=== PATIENT | female | born 1980 | race Caucasian/White ===

== ENCOUNTER 2020-02-20 09:11 | Outpatient (REF) | payer OTHER, SELFPAY ==
[2020-02-21 08:51] LABS: BV Int Neg Control Negative (Negative); BV Int Pos Control Positive (Positive)
[2020-02-21 17:47] LABS: C. trachomatis RNA TMA NOT DETECTED (NOT DETECTED); N. gonorrhoeae RNA TMA NOT DETECTED (NOT DETECTED)
== END 2020-02-20 09:12 | disposition home or self-care (01) ==
LOC: HO.LAB 09:11
PROVIDERS: Visit Provider Advanced Practice Midwife
DX: Z01.419 Encounter for gynecological examination (general) (routine) without abnormal findings (principal); Z20.2 Contact with and (suspected) exposure to infections with a predominantly sexual mode of transmission; N75.0 Cyst of Bartholin's gland; Z78.9 Other specified health status
CPT/HCPCS: 87480; 87491; 87510; 87591; 87660

== ENCOUNTER 2020-03-27 17:21 | Outpatient (REF) | payer OTHER, SELFPAY | END 2020-03-27 17:22 | disposition home or self-care (01) | LOC: HO.LAB 17:21 | PROVIDERS: Visit Provider Internal Medicine | DX: Z20.822 Contact with and (suspected) exposure to COVID-19 (principal) | CPT/HCPCS: 36415; C9803; U0003; U0005 ==

== ENCOUNTER → 2020-04-04 13:05 | Outpatient (BNVA) | payer OTHER, SELFPAY | PROVIDERS: PCP Nurse Practitioner Family; Referring Provider Nurse Practitioner Family; Visit Provider Nurse Practitioner ==

== ENCOUNTER 2020-05-21 15:35 | Outpatient (REF) | payer OTHER, SELFPAY ==
[2020-05-22 11:14] LABS: SARS COV2 PCR INHOUSE NEGATIVE (Negative)
== END 2020-05-21 15:36 | disposition home or self-care (01) ==
LOC: HO.LAB 15:35
PROVIDERS: Visit Provider Internal Medicine
DX: Z20.822 Contact with and (suspected) exposure to COVID-19 (principal)
CPT/HCPCS: C9803; U0003

== ENCOUNTER 2020-05-30 12:05 | Outpatient (REF) | payer OTHER, SELFPAY ==
--- NOTE | ~2020-05-30 | MM_ITS ---
EXAMINATION: MM SCREENING DIGITAL BREAST TOMOSYNTHESIS, BILATERAL CLINICAL INFORMATION: Screening. Asymptomatic. The lifetime risk of breast cancer based on the Tyrer-Cuzick Model is 17%. COMPARISON: Mammography: 11/24/2018 (baseline). TECHNIQUE: Digital breast tomosynthesis is performed in both the craniocaudal and mediolateral oblique views along with computer-aided detection (CAD). Synthesized 2D images are generated from the tomosynthesis. FINDINGS: There are scattered areas of fibroglandular density (ACR BI-RADS breast composition Category b). There are no significant masses, abnormal calcifications, or other abnormalities. Parenchymal pattern is similar to baseline exam. No significant changes. MM/MM tomosynthesis screening BI IMPRESSION: No mammographic evidence of malignancy. ASSESSMENT: BI-RADS 1: Negative RECOMMENDATION: Routine annual mammography screening. This patient's information was entered into a reminder system with a target due date for their next mammogram.
== END 2020-05-30 12:06 | disposition home or self-care (01) ==
LOC: HO.MAMMO 12:05
PROVIDERS: Visit Provider Nurse Practitioner Family
DX: Z12.31 Encounter for screening mammogram for malignant neoplasm of breast (principal)
CPT/HCPCS: 77063; 77067

== ENCOUNTER → 2020-10-17 09:10 | Outpatient (BNVA) | payer OTHER, SELFPAY | PROVIDERS: PCP Nurse Practitioner Family; Visit Provider Nurse Practitioner | DX: K21.9 Gastro-esophageal reflux disease without esophagitis (principal) ==

== ENCOUNTER 2020-11-26 17:51 | Outpatient (REF) | payer OTHER, SELFPAY | END 2020-11-26 17:52 | disposition home or self-care (01) | LOC: HO.LNP 17:51 | PROVIDERS: Visit Provider Nurse Practitioner | DX: K21.9 Gastro-esophageal reflux disease without esophagitis (principal) | CPT/HCPCS: 87338 ==

== ENCOUNTER → 2020-12-13 08:31 | Outpatient (BNVA) | payer OTHER, SELFPAY | PROVIDERS: PCP Nurse Practitioner Family; Visit Provider Nurse Practitioner ==

== ENCOUNTER 2021-09-02 16:44 | Outpatient (REF) | payer OTHER, SELFPAY ==
--- NOTE | ~2021-09-02 | XR_ITS ---
EXAMINATION: XR RIBS, LEFT CLINICAL INFORMATION: Left-sided pain, mastodynia. COMPARISON: Radiographs left shoulder 09/02/2021 TECHNIQUE: Frontal view chest and 3 views left ribs are obtained for a total of 4 views. FINDINGS: There is no visible rib fracture or rib destructive process. There is no pneumothorax, pleural reaction, or effusion. Costophrenic sulci are clear. Heart size normal. No airspace consolidation or groundglass opacity. The hilar and mediastinal contours and remainder of the bony structures are unremarkable. XR/XR ribs LT min 3V w CXR1V IMPRESSION: -No visible left rib fracture or rib destructive process. -Lungs clear. No pneumothorax, airspace opacity, or effusion.
--- NOTE | ~2021-09-02 | XR_ITS ---
EXAMINATION: XR SHOULDER, LEFT CLINICAL INFORMATION: Shoulder lesions left shoulder COMPARISON: Left shoulder radiograph from 03/22/2019 TECHNIQUE: Four views of the left shoulder. FINDINGS: No acute visible fracture or dislocation. Joint spaces and alignment are maintained. Soft tissues are unremarkable. Visualized portions of the left chest are unremarkable. XR/XR shoulder LT min 2V IMPRESSION: No acute visible fracture or dislocation.
== END 2021-09-02 16:45 | disposition home or self-care (01) ==
LOC: HO.XRAY 16:44
PROVIDERS: Absent Provider Family Medicine; PCP Family Medicine; Visit Provider Internal Medicine
DX: M75.82 Other shoulder lesions, left shoulder (principal); N64.4 Mastodynia
CPT/HCPCS: 71101; 73030

== ENCOUNTER 2021-10-14 12:53 | Outpatient (REF) | payer OTHER, SELFPAY ==
--- NOTE | ~2021-10-14 | US_ITS ---
EXAMINATION: US PELVIS CLINICAL INFORMATION: Abnormal uterine and vaginal bleeding. Age 41. COMPARISON: None TECHNIQUE: Ultrasound of the pelvis is performed using both transabdominal and transvaginal transducers along with Doppler. Transvaginal imaging is performed due to inadequate visualization transabdominally. FINDINGS: Uterus: The uterus is anteverted and upper limits of normal size measuring 11.1 x 5.2 x 5.9 cm. Volume 157 mL. The double wall endometrial thickness is within normal measuring under 11 mm. The uterus is smooth in contour. There is subtle coarsening of the myometrial echotexture. Probable intramural fibroid anterior body measuring 1.3 cm. Also probable intramural/submucous fibroid posterior body 1.5 cm. Adnexa: Both ovaries are visualized. There is normal color flow to the adnexa. There is no ovarian torsion. There is no pelvic ascites or fluid collection. Right ovary measures 4.1 x 2.3 x 3.2 cm. There are small peripherally oriented follicles but within normal number. No adnexal mass. Left ovary measures 3.0 x 2.4 x 3.0 cm. There are small peripherally oriented follicles but within normal number. No adnexal mass. US/US pelvic and transvaginal IMPRESSION: Uterus: -Upper limits of normal size. Endometrial thickness is normal, under 11 mm. -Suspect small submucous fibroid posterior body 1.5 cm and suspect intramural fibroid anterior body 1.3 cm. Adnexa: -No adnexal mass or ascites.
== END 2021-10-14 12:54 | disposition home or self-care (01) ==
LOC: HO.HMGCX 12:53
PROVIDERS: Visit Provider Advanced Practice Midwife
DX: N93.9 Abnormal uterine and vaginal bleeding, unspecified (principal)
CPT/HCPCS: 76830; 76856

== ENCOUNTER → 2021-10-29 09:00 | Outpatient (BNVA) | payer OTHER, SELFPAY | PROVIDERS: PCP Family Medicine; Referring Provider Family Medicine; Visit Provider Internal Medicine | DX: R07.2 Precordial pain (principal) | CPT/HCPCS: 93005; 99202 ==

== ENCOUNTER 2021-11-11 08:32 | Emergency (ER) | payer OTHER, SELFPAY ==
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
[2021-11-11 08:42] VITALS: BP 179/95; PULSE 60; RESP 19; TEMP 36.6; O2SAT 98; BMI 27.9
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
== END 2021-11-11 12:37 | disposition home or self-care (01) ==
PROVIDERS: Emergency Provider Emergency Medicine
DX: M54.2 Cervicalgia (principal); M54.50 Low back pain, unspecified; M54.6 Pain in thoracic spine; R51.9 Headache, unspecified; Z79.899 Other long term (current) drug therapy
CPT/HCPCS: 70450; 72070; 72125; 99283; 99284

== ENCOUNTER 2022-04-28 13:02 | Outpatient (REF) | payer OTHER, SELFPAY ==
--- NOTE | ~2022-04-28 | US_ITS ---
EXAMINATION: US PELVIS CLINICAL INFORMATION: Bleeding COMPARISON: 10/14/2021 TECHNIQUE: Ultrasound of the pelvis is performed using both transabdominal and transvaginal transducers along with Doppler. Transvaginal imaging is performed due to inadequate visualization transabdominally. FINDINGS: Uterus: The uterus is anteverted and measures 8 x 5.6 x 6.4 cm. 2 discrete fibroids noted within the anterior myometrium of the body near the fundus measuring 12 and 10 mm. 10 mm lesion appears new since previous. The double wall endometrial thickness is 6.3 mm. Incidental nabothian cysts. Adnexa: Both ovaries are visualized. There is normal color flow to the adnexa. There is no ovarian torsion. There is no pelvic ascites or fluid collection. Right ovary measures 8 mL in volume Left ovary measures 16 mL in volume US/US pelvic and transvaginal IMPRESSION: 2 small fibroids noted. No endometrial thickening. No adnexal lesion.
== END 2022-04-28 13:03 | disposition home or self-care (01) ==
LOC: HO.HMGCX 13:02
PROVIDERS: PCP Nurse Practitioner Family; Visit Provider Family Medicine
DX: N93.9 Abnormal uterine and vaginal bleeding, unspecified (principal)
CPT/HCPCS: 76830; 76856

== ENCOUNTER 2022-10-13 13:52 | Outpatient (REF) | payer OTHER, SELFPAY ==
--- NOTE | ~2022-10-13 | MM_ITS ---
EXAMINATION: MM DIAGNOSTIC DIGITAL BREAST TOMOSYNTHESIS, BILATERAL US BREAST LIMITED, BILATERAL MAMMOGRAPHY: CLINICAL INFORMATION: Patient complaining of palpable foci of concern right breast 12:00 axis, left breast 2:00 axis. Patient also due for bilateral screening. COMPARISON: Mammography: 05/30/2020. 11/24/2018. TECHNIQUE: Digital breast tomosynthesis is performed in both the craniocaudal and mediolateral oblique views along with computer-aided detection (CAD). Synthesized 2D images are generated from the tomosynthesis. In addition to standard views, 3-D spot compression right CC, right ML, and left CC and left ML views were obtained. FINDINGS: The breasts are heterogeneously dense, which may obscure small masses (ACR BI-RADS breast composition Category c). There are no suspicious masses, suspicious grouped calcifications, or areas of architectural distortion. The parenchymal pattern is stable from prior exams. Palpable foci as marked by the technologist in the right and left breasts demonstrate no mammographic correlation. Results were provided to the patient at time of visit by the technologist. ULTRASOUND: CLINICAL INFORMATION: Patient complaining of palpable foci of concern right breast 12:00 axis, left breast 2:00 axis. COMPARISON: None TECHNIQUE: Targeted sonographic evaluation of both breasts was performed using a high frequency linear transducer. Specific attention was paid to areas of palpable concern as indicated by the patient in the right breast 12:00 axis and left breast 2:00 axis. Selected archived documentation. FINDINGS: RIGHT BREAST: There is a mixture of fatty and fibroglandular tissue. No suspicious mass is seen. There is no pathologic acoustic shadowing. There is no axillary adenopathy. There is no sonographic abnormality or correlate to the region of palpable concern 12:00 axis. LEFT BREAST: There is a mixture of fatty and fibroglandular tissue. No suspicious mass is seen. There is no pathologic acoustic shadowing. There is no axillary adenopathy. There is no sonographic abnormality or correlate to the region of palpable concern 2:00 axis. MM/MM tomosynthesis diagnostic BI IMPRESSION: There are no findings suspicious for malignancy in either breast. Palpable foci right and left breast demonstrate no imaging correlation or abnormality. Decision to biopsy a palpable abnormality without imaging correlate must be determined on a clinical basis. OVERALL ASSESSMENT: Mammography: BI-RADS 1 - Negative Ultrasound: BI-RADS 1 - Negative RECOMMENDATION: 1 year F/U This patient's information was entered into a reminder system with a target due date for their next mammogram. .
== END 2022-10-13 13:53 | disposition home or self-care (01) ==
LOC: HO.MAMMO 13:52
PROVIDERS: PCP Family Medicine; Visit Provider Family Medicine
DX: N63.15 Unspecified lump in the right breast, overlapping quadrants (principal); N63.25 Unspecified lump in the left breast, overlapping quadrants
CPT/HCPCS: 76642; 77062; 77066

== ENCOUNTER → 2022-10-13 14:30 | Outpatient (BNV) | payer OTHER, SELFPAY | PROVIDERS: PCP Family Medicine; Visit Provider Radiology Diagnostic Radiology | DX: N63.10 Unspecified lump in the right breast, unspecified quadrant (principal); N63.20 Unspecified lump in the left breast, unspecified quadrant | CPT/HCPCS: 76642; 77062; 77066 ==

== ENCOUNTER → 2023-01-25 09:05 | Outpatient (REF) | payer MEDICAID, SELFPAY ==
--- NOTE | 2023-01-25 09:11 | ECG_ITS ---
Test Reason : HTN Blood Pressure : / mmHG Vent. Rate : 060 BPM Atrial Rate : 060 BPM P-R Int : 170 ms QRS Dur : 090 ms QT Int : 426 ms P-R-T Axes : 032 042 039 degrees QTc Int : 426 ms Normal sinus rhythm with sinus arrhythmia Normal ECG No previous ECGs available Referred By: Elizabeth Guo Electronically Signed By:ALVAREZ JIMENEZ
== END ==
LOC: HO.CARD 09:05
PROVIDERS: PCP Family Medicine; Visit Provider Family Medicine
DX: I10 Essential (primary) hypertension (principal)
CPT/HCPCS: 93005

== ENCOUNTER → 2023-01-25 09:11 | Outpatient (BNV) | payer MEDICAID, SELFPAY | PROVIDERS: PCP Family Medicine; Visit Provider Internal Medicine | DX: I10 Essential (primary) hypertension (principal) | CPT/HCPCS: 93010 ==

== ENCOUNTER 2023-01-26 09:04 | Outpatient (REF) | payer MEDICAID, SELFPAY ==
[2023-01-26 10:56] LABS: MANUAL DIFF FLAG NO
[2023-01-26 11:08] LABS: Basophils Absolute Auto 0.1 X10*3/uL (0.0-0.2); Basophils Percent Auto 0.9 % (0-2); Eosinophils Absolute Auto 0.2 X10*3/uL (0.0-0.4); Eosinophils Percent Auto 2.7 % (0-4); Hematocrit 35.3 % (37.0-47.0); Hemoglobin 11.7 g/dl (12.0-16.0); Imm Gran Abs Auto 0.01 X10*3/uL (0.00-0.03); Imm Gran Pct Auto 0.2 % (0.0-0.4); Lymphocytes Absolute Auto 2.3 X10*3/uL (1.2-4.9); Lymphocytes Percent Auto 41.9 % (20-40); Mean Corpuscular HGB Conc 33.1 g/dl (31.0-35.0); Mean Corpuscular Hemoglobin 28.2 pg (27.0-33.0); Mean Corpuscular Volume 85.1 fL (80.0-98.0); Mean Platelet Volume 10.4 fL (9.4-12.3); Monocytes Absolute Auto 0.5 X10*3/uL (0.1-1.2); Monocytes Percent Auto 9.3 % (2-11); Neutrophils Absolute Auto 2.5 x10*3/uL (2.0-8.3); Platelet Count 316 X10*3/uL (160-400); Red Blood Count 4.15 X10*6/uL (4.20-5.50); Red Cell Distribution Width 13.7 % (11.0-16.0); White Blood Count 5.6 X10*3/uL (4.8-10.8)
[2023-01-26 12:14] LABS: Estimated Average Glucose 111 mg/dL; Hemoglobin A1c % 5.5 % (<6.0)
[2023-01-26 12:55] LABS: Alanine Aminotransferase 20 U/L (0-31); Albumin Level 4.1 g/dL (3.5-5.0); Alkaline Phosphatase 68 U/L (39-117); Anion Gap 11 (12-20); Aspartate Amino Transferase 19 U/L (5-31); Bilirubin Direct 0.1 mg/dL (0.0-0.5); Bilirubin Total 0.4 mg/dL (0.0-1.0); Blood Urea Nitrogen 14 mg/dL (9-16); Calcium 8.8 mg/dL (8.4-10.2); Carbon Dioxide 26 mmol/L (22-29); Chloride 105 mmol/L (96-108); Cholesterol 215 mg/dL (<200); Estimated Glomerular Filt Rate > 60; Free T4 (Free Thyroxine) 1.14 ng/dL (0.71-1.85); Glucose Random 89 mg/dL (60-115); HDL Cholesterol 40 mg/dL (>40); LDL Cholesterol Calculated 146 mg/dL (<100); Sodium 139 mmol/L (135-145); Thyroid Stimulating Hormone 2.78 uIU/mL (0.32-4.0); Total Protein 7.5 g/dL (6.5-8.0); Triglycerides 148 mg/dL (<150); Vitamin D 25-OH Total 48.1 ng/mL (>30)
[2023-01-27 08:25] LABS: HIV AB/AG Nonreactive (Nonreactive); HIV Num 1 0.07 S/CO (0.00-0.99); ~HepC Num1 0.28 S/CO (0.00-0.79); ~Hepatitis C Antibody Nonreactive (Nonreactive)
[2023-01-28 08:39] LABS: RPR Rapid Plasma Reagin NON-REACTIVE (NON-REACTIVE)
== END 2023-01-26 09:05 | disposition home or self-care (01) ==
LOC: HO.HHCL 09:04
PROVIDERS: Visit Provider Family Medicine
DX: Z11.4 Encounter for screening for human immunodeficiency virus [HIV] (principal); I10 Essential (primary) hypertension
CPT/HCPCS: 36415; 80048; 80061; 80076; 82306; 83036; 84439; 84443; 85025; 86592; 86803; 87389

== ENCOUNTER 2023-01-29 09:06 | Outpatient (REF) | payer MEDICAID, SELFPAY ==
[2023-01-29 12:54] LABS: Creatinine Urine 116.23 mg/dL; Microalbum/Creatinine Ratio Ur 6.8 ug/mg cr (<30)
[2023-01-29 15:09] LABS: CT PCR NOT DETECTED (Not Detect.); NG PCR NOT DETECTED (Not Detect.)
== END 2023-01-29 09:07 | disposition home or self-care (01) ==
LOC: HO.HHCL 09:06
PROVIDERS: Visit Provider Family Medicine
DX: I10 Essential (primary) hypertension (principal)
CPT/HCPCS: 0353U; 82043; 82570

== ENCOUNTER 2023-02-05 11:27 | Outpatient (REF) | payer MEDICAID, SELFPAY ==
[2023-02-05 13:59] LABS: Potassium 3.7 mmol/L (3.3-5.1)
== END 2023-02-05 11:28 | disposition home or self-care (01) ==
LOC: HO.HHCL 11:27
PROVIDERS: Visit Provider Family Medicine
DX: E87.6 Hypokalemia (principal)
CPT/HCPCS: 36415; 84132

== ENCOUNTER 2023-05-05 12:18 | Outpatient (AMB) | payer MEDICAID, SELFPAY ==
--- NOTE | 2023-05-05 12:18 | A.OFFVIS_ITS ---
Intake Vital Signs 05/05/23 12:19 Height 5 ft 3 in Weight 141 lb 15.643 oz BMI 25.1 BP 160/70 H Blood Pressure Location Rt brachial Position Sitting Pulse 62 Pulse Source Pulse Oximeter Intake Visit Reasons: Gastroesophageal reflux disease (GERD) Intake Note: Pt presents to the office today for GERD. She states when she takes the omeperazole it helps but when she doesnt take it it gets worse again. Pt states her GERD happens mainly in the morning. Pt denies N/V/D. Still Operator Helper Required: Yes Still Operator Helper Language: Block Feeder Name: Jayjay([id number]) Allergies Hydrocodone-Acetaminophen Allergy (Unknown, Uncoded 05/05/23 12:20) Unknown HPI Gastroesophageal reflux disease (GERD) HPI Details Assessment & Plan (1) GERD (gastroesophageal reflux diseas e): ?Code(s): K21.9 - Gastro-esophageal reflux disease without esophagitis ?Plan: [place] #[id number], Kymberly She says her GERD is still well controlled on her omeprazole 20mg qd. I advise her that the HP is negative, so this is not a problem. I ask if she has anymore concerns; as she had worries about cancer and not finding out until it is too late. She says she is now satisfied with her therapy and response. At this point she is agreeable to a 6 month follow-up and a let me know if she has any other worrying GI symptoms or complaints. TODAY'S VISIT Austrian #[id number] Jayjay She says that her PCP changed her GERD medication, but she did not feel it worked as well as the omeprazole. She thinks it may have been pantoprazole. Then she tried to go off of the o2o as well and try natural things but then she developed severe GERD and N/V, so she again restarted it. She was experiencing a dry throat and a bubbling in her stomach at night that she felt was keeping her up. I suggest we trial different medications to see if we can get good sx resolution w/o s/e. She would also like an upper endoscopy and I will get this since she did have nausea vomiting and significant dyspepsia. She denies any cardiac or respiratory problems. There are no prior problems with anesthesia or sedation. There are no infectious disease problems. I will see her in 2 weeks to evaluate the famotidine [facility] Medical History Well woman exam with routine gynecological exam Hypothyroid Surgical History History of esophagogastroduodenoscopy (EGD) History of abdominoplasty Family History Father HTN (hypertension) Mother HTN (hypertension) Paternal Grandmother Heart attack Social History Alcohol intake: current Alcohol intake frequency: holidays/special occasions only Patient Tobacco Use Status: Never used Tobacco Gender identity: Female Female Reproductive History Menstrual Age of Menarche: 14 Review of Systems Const Denies fatigue, Denies fever(s), Denies night sweats, Denies poor appetite and Denies weight loss ENT Reports Normal hearing present, Denies dental pain, Denies dysphagia, Denies hearing loss, Denies mouth pain, Denies odynophagia, Denies throat swelling, Denies tongue swelling and Reports other (Dentition adequate) Card Reports no additional complaints Resp Reports no additional complaints GI Details: Denies abdominal pain, Denies melena, Denies bloating, Denies hematochezia, Denies constipation, Denies GI cramping, Denies dysphagia, Denies excessive flatus, Denies early satiety, Reports dyspepsia, Reports heartburn, Denies diarrhea, Reports nausea, Denies odynophagia, Reports vomiting and Denies hematemesis Skin/Breast Denies pruritus, Denies lesions, Denies rash and Denies jaundice Neuro Reports Normal hearing present and Denies Abnormal speech present Endo Denies fatigue Aller/Immun Denies throat swelling and Denies tongue swelling Physical Exam Vital Signs: Last Vital Signs Pulse 62 05/05/23 12:19 BP 160/70 H 05/05/23 12:19 BMI result Body Mass Index 25.1 Const General: cooperative, no acute distress, well developed and well groomed Nutritional Appearance: average body habitus and well nourished Orientation/consciousness: oriented to person, oriented to place and oriented to time Limitations: language barrier HEENT Head: Yes normocephalic and Yes atraumatic Eyes General: appearance normal, both eyes and all related structures Pupils: Equal, round and reactive pupils present Neck Neck: Yes normal visual inspection and Yes no lymphadenopathy Thyroid: Thyroid normal Resp Effort & Inspection: normal respiratory effort and able to speak in complete sentences Auscultation: clear to auscultation bilaterally Cardio Rate: regular rate Rhythm: regular rhythm Heart sounds: Normal, physiologic split S2 sound present Peripheral pulses: radial pulses present and posterior tibial pulses present GI Inspection: No distended and No Abdominal panniculus present Palpation (GI): Soft to palpation, nontender, no guarding, not rigid and No hepatosplenomegaly present Percussion: Yes normal to percussion Auscultation: normal bowel sounds Rectal Exam - Female: deferred Skin General skin exam: no rashes or lesions noted, turgor normal, skin not dry, no jaundice, No spider nevi and no striae Rashes: no rashes Nails: normal Neuro General: oriented to person, oriented to place and oriented to time Cranial nerves: Yes Equal, round and reactive pupils present and Yes Normal hearing present Speech: No Abnormal speech present Extrem General: Yes normal to inspection, No clubbing, No cyanosis and No edema Psych Appearance: grossly normal and well kempt Mental Status: mental status grossly normal Speech and movement: Normal speech and movement present Affect: normal affect Attitude: cooperative Thought process: Normal thought process present and not confabulating Thought content: Normal thought content present Insight: Limited insight present (Psych) Judgement: Limited judgement present (Psych) Results Reviewed Results Reviewed: Laboratory Tests 01/26/23 09:05 WBC 5.6 Hgb 11.7 L Hct 35.3 L MCV 85.1 MCH 28.2 Plt Count 316 Estimated GFR > 60 Total Bilirubin 0.4 AST 19 ALT 20 Alkaline Phosphatase 68 TSH 2.78 Assessment & Plan Assessment & Plan (1) GERD (gastroesophageal reflux disease): Code(s): K21.9 - Gastro-esophageal reflux disease without esophagitis (2) Pre-op examination: Code(s): Z01.818 - Encounter for other preprocedural examination Plan Austrian #[id number] Jayjay She says that her PCP changed her GERD medication, but she did not feel it worked as well as the omeprazole. She thinks it may have been pantoprazole. Then she tried to go off of the o2o as well and try natural things but then she developed severe GERD and N/V, so she again restarted it. She was experiencing a dry throat and a bubbling in her stomach at night that she felt was keeping her up. I suggest we trial different medications to see if we can get good sx resolution w/o s/e. She would also like an upper endoscopy and I will get this since she did have na usea vomiting and significant dyspepsia. She denies any cardiac or respiratory problems. There are no prior problems with anesthesia or sedation. There are no infectious disease problems. I will see her in 2 weeks to evaluate the famotidine Orders: Orders EGD with [facility] - GI Use Only Today K21.9 - Gastro-esophageal reflux disease without esophagitis Medications: New famotidine (Pepcid) 40 mg PO BEDTIME 30 tabs 3RF K21.9 - Gastro-esophageal reflux disease without esophagitis On Hold omeprazole Hold Comment: Doctor's Order 20 mg PO DAILY 30 caps 6RF K21.9 - Gastro- esophageal reflux disease without esophagitis Coding Level of Care Code Est Pt Level 4 (19252) Diagnoses GERD (gastroesophageal reflux disease) K21.9 Pre-op examination Z01.818
[2023-05-05 12:19] VITALS: BP 160/70; PULSE 62; BMI 25.1
== END 2023-05-05 12:49 | disposition home or self-care (01) ==
PROVIDERS: PCP Family Medicine; Visit Provider Nurse Practitioner
DX: K21.9 Gastro-esophageal reflux disease without esophagitis (principal); Z01.818 Encounter for other preprocedural examination
CPT/HCPCS: 99214

== ENCOUNTER → 2023-05-05 12:18 | Outpatient (BNVA) | payer MEDICAID, SELFPAY | PROVIDERS: PCP Family Medicine; Visit Provider Nurse Practitioner | DX: K21.9 Gastro-esophageal reflux disease without esophagitis (principal) | CPT/HCPCS: 99212 ==

== ENCOUNTER 2023-05-19 12:37 | Outpatient (AMB) | payer MEDICAID, SELFPAY ==
--- NOTE | 2023-05-19 12:43 | A.OFFVIS_ITS ---
Intake Vital Signs 05/19/23 12:46 Height 5 ft 3 in Weight 141 lb 1.533 oz BMI 25.0 BP 118/66 Blood Pressure Location Lt brachial Position Sitting Pulse 65 Intake Visit Reasons: 2 week follow up Allergies Hydrocodone-Acetaminophen Allergy (Unknown, Uncoded 05/19/23 12:46) Unknown HPI 2 week follow up HPI Details Assessment & Plan (1) GERD (gastroesophageal reflux diseas e): Code(s): K21.9 - Gastro-esophageal reflux disease without esophagitis (2) Pre-op examination: Code(s): Z01.818 - Encounter for other preprocedural examination Plan [place] #[id number] Jayjay She says that her PCP changed her GERD medication, but she did not feel it worked as well as the omeprazole. She thinks it may have been pantoprazole. Then she tried to go off of the o2o as well and try natural things but then she developed severe GERD and N/V, so she again restarted it. She was experiencing a dry throat and a bubbling in her stomach at night that she felt was keeping her up. I suggest we trial different medications to see if we can get good sx resolution w/o s/e. She would also like an upper endoscopy and I will get this since she did have nausea vomiting and significant dyspepsia. She denies any cardiac or respiratory problems. There are no prior problems with anesthesia or sedation. There are no infectious disease problems. I will see her in 2 weeks to evaluate the famotidine Orders: Orders EGD with [facility] - G I Use Only Today K21.9 - Gastro-eso phageal reflux dis ease without esoph agitis Medications: New famotidine (Pepcid ) 40 mg PO BEDTIME 30 tabs 3RF K21.9 - Gastro-eso phageal reflux dis ease without esoph agitis On Hold omeprazole Hold Comment: Doctor' s Order 20 mg PO DAILY 30 caps 6RF K21.9 - Gastro-eso phageal reflux dis ease without esoph agitis EGD Biopsy TODAY'S VISIT [place] #Gamaliel LIve She did receive the famotidine but it did not control her GERD. She was changed from o2o to pantoprazole prior to the last appt by her PCP because she thought she was having trouble with the capsule, but the pantoprazole did not help her. She went back to her omeprazole and now this is helping her better, including with her overnight cough. However, since she has more trouble over-nignt I think we need to move to bid omeprazole dosing. ROV 6 weeks. [facility] Medical History Well woman exam with routine gynecological exam Hypothyroid Surgical History History of esophagogastroduodenoscopy (EGD) History of abdominoplasty Family History Father HTN (hypertension) Mother HTN (hypertension) Paternal Grandmother Heart attack Social History Alcohol intake: current Alcohol intake frequency: holidays/special occasions only Patient Tobacco Use Status: Never used Tobacco Gender identity: Female Female Reproductive History Menstrual Age of Menarche: 14 Review of Systems Const Denies fatigue, Denies fever(s), Denies night sweats, Denies poor appetite and Denies weight loss ENT Reports Normal hearing present, Denies dental pain, Denies dysphagia, Denies hearing loss, Denies mouth pain, Denies odynophagia, Denies throat swelling, Denies tongue swelling and Reports other (Dentition adequate) Card Reports no additional complaints Resp Reports no additional complaints GI Details: Denies abdominal pain, Denies melena, Denies bloating, Denies hematochezia, Denies constipation, Denies GI cramping, Denies dysphagia, Denies excessive flatus, Denies early satiety, Reports dyspepsia, Reports heartburn, Denies diarrhea, Denies nausea, Denies odynophagia, Denies vomiting and Denies hematemesis Skin/Breast Denies pruritus, Denies lesions, Denies rash and Denies jaundice Neuro Reports Normal hearing present and Denies Abnormal speech present Endo Denies fatigue Aller/Immun Denies throat swelling and Denies tongue swelling Physical Exam Vital Signs: Last Vital Signs Pulse 65 05/19/23 12:46 BP 118/66 05/19/23 12:46 BMI result Body Mass Index 25.0 Const General: cooperative, no acute distress, well developed and well groomed Nutritional Appearance: average body habitus and well nourished Orientation/consciousness: oriented to person, oriented to place and oriented to time Limitations: language barrier HEENT Head: Yes normocephalic and Yes atraumatic Eyes General: appearance normal, both eyes and all related structures Pupils: Equal, round and reactive pupils present Neck Neck: Yes normal visual inspection and Yes no lymphadenopathy Thyroid: Thyroid normal Resp Effort & Inspection: normal respiratory effort and able to speak in complete sentences Auscultation: clear to auscultation bilaterally Cardio Rate: regular rate Rhythm: regular rhythm Heart sounds: Normal, physiologic split S2 sound present Peripheral pulses: radial pulses present and posterior tibial pulses present GI Inspection: No distended and No Abdominal panniculus present Palpation (GI): Soft to palpation, nontender, no guarding, not rigid and No hepatosplenomegaly present Percussion: Yes normal to percussion Auscultation: normal bowel sounds Rectal Exam - Female: deferred Skin General skin exam: no rashes or lesions noted, turgor normal, skin not dry, no jaundice, No spider nevi and no striae Rashes: no rashes Nails: normal Neuro General: oriented to person, oriented to place and oriented to time Cranial nerves: Yes Equal, round and reactive pupils present and Yes Normal hearing present Speech: No Abnormal speech present Extrem General: Yes normal to inspection, No clubbing, No cyanosis and No edema Psych Appearance: grossly normal and well kempt Mental Status: mental status grossly normal Speech and movement: Normal speech and movement present Affect: normal affect Attitude: cooperative Thought process: Normal thought process present and not confabulating Thought content: Normal thought content present Insight: Limited insight present (Psych) and Poor insight present (Psych) Judgement: Limited judgement present (Psych) and Poor judgement present (Psych) Assessment & Plan Assessment & Plan (1) GERD (gastroesophageal reflux disease): Code(s): K21.9 - Gastro-esophageal reflux disease without esophagitis Plan [place] #Gamaliel LIve She did receive the famotidine but it did not control her GERD. She was changed from o2o to pantoprazole prior to the last appt by her PCP because she thought she was having trouble with the capsule, but the pantoprazole did not help her. She went back to her omeprazole and now this is helping her better, including with her overnight cough. However, since she has more trouble over-nignt I think we need to move to bid omeprazole dosing. ROV 6 weeks EGD Biopsy Medications: Discontinued famotidine (Pepcid) Discontinued Reason: Doctor's Order 40 mg PO BEDTIME 30 tabs 3RF K21.9 - Gastro-esophageal reflux disease without esophagitis Resumed omeprazole 20 mg PO BID 60 caps 6RF K21.9 - Gastro-esophageal reflux disease without esophagitis omeprazole 20 mg PO DAILY 30 caps 6RF K21.9 - Gastro-esophageal reflux disease without esophagitis Coding Level of Care Code Est Pt Level 3 (26172) Diagnoses GERD (gastroesophageal reflux disease) K21.9
[2023-05-19 12:46] VITALS: BP 118/66; PULSE 65; BMI 25.0
== END 2023-05-19 13:00 | disposition home or self-care (01) ==
PROVIDERS: PCP Family Medicine; Visit Provider Nurse Practitioner
DX: K21.9 Gastro-esophageal reflux disease without esophagitis (principal)
CPT/HCPCS: 99213

== ENCOUNTER → 2023-05-19 12:37 | Outpatient (BNVA) | payer MEDICAID, SELFPAY | PROVIDERS: PCP Family Medicine; Visit Provider Nurse Practitioner | DX: K21.9 Gastro-esophageal reflux disease without esophagitis (principal) | CPT/HCPCS: 99212 ==

== ENCOUNTER 2023-05-31 10:46 | Day surgery (SDC) | payer MEDICAID, SELFPAY ==
[2023-05-27 12:32] VITALS: BMI 25.0
--- NOTE | 2023-05-31 12:03 | P.CONAN_ITS ---
[facility] Active Problems Active Problems: All Active Problems Pre-op examination (Acute) Precordial chest pain (Acute) GERD (gastroesophageal reflux disease) (Acute) Potential exposure to STD (Acute) Relies on tubal ligation as primary control method (Acute) Bartholin cyst (Acute) Past Medical History Medical History Well woman exam with routine gynecological exam Hypothyroid Family History Family History Father HTN (hypertension) Mother HTN (hypertension) Paternal Grandmother Heart attack Surgical History Surgical History History of esophagogastroduodenoscopy (EGD) History of abdominoplasty History of Problems with Anesthesia: No Social History Social History Alcohol intake: current Alcohol intake frequency: holidays/special occasions only Patient Tobacco Use Status: Never used Tobacco Use of substances other than those prescribed or required for medical reasons: No Are you DNR?: No Advance Directives: No Advance Directives Information Provided: Yes Gender identity: Female Meds Allergies Allergy/AdvReac Type Severity Reaction Status Date / Time Hydrocodone-Acetaminophen Allergy Mild Nausea Uncoded 05/31/23 12:01 Home Medications ?Medication ?Instructions ?Recorded ?Confirmed ?Last Taken ?Type levothyroxine 88 mcg tablet 88 mcg PO DAILY 10/29/21 05/31/23 05/31/23 History naproxen 500 mg tablet 500 mg PO BID PRN pain 10/29/21 05/31/23 Unknown History lisinopril 5 mg tablet 5 mg PO QAM 05/19/23 05/31/23 05/31/23 History Exam Height,Weight and Vital Signs: Height 5 ft 3 in Weight 63.957 kg Airway Mallampati Class: II TM Dist: >3cm Neck ROM: Full Loose/Missing/Broken Teeth: No Heart: RRR Lungs: CTA Assessment and Plan Assessment Anesthesia Assessment: Anesthesia Plan Discussed and Chart Reviewed Final Anesthetic Review History of Problems with Anesthesia: No NPO: Yes ASA Class: II Final Preanesthetic Review: Meds/Allgs Chart Reviewed, Consent Obtained/Reviewed and Anes Risks/Benef Reviewed Patient Risk: Low Procedure Risk: Intermediate Anesthetic Plan Anesthetic Plan: MAC: Disposition: Standard PACU
[2023-05-31 12:04] VITALS: BMI 24.0
[2023-05-31 12:04] LABS: UPreg QC Valid YES
[2023-05-31 12:06] LABS: Urine Pregnancy NEGATIVE (NEGATIVE)
[2023-05-31 12:18] VITALS: BP 135/83; PULSE 59; RESP 16; TEMP 36.8; O2SAT 100
[2023-05-31] MEDS: Lactated Ringers 1,000 ML 80 ML IVCONT (12:27)
--- NOTE | 2023-05-31 12:48 | P.HPSUR_ITS ---
Pre-Procedural Eval Section A - 24 Hr Update-Section A only Date of Service: 05/31/23 Section B - Complete if H&P > 30 days Chief Complaint: Gastro-esophageal reflux disease without esophagit Relevant Family History (Specify if Yes): No Relevant Social History: None Present Medications: see Short Stay Collaborative assessment Medical History: Significant History (Hypothyroid) History of Previous Operations: Relevant previous surgery/procedure and date(s) (History of esophagogastroduodenoscopy (EGD) History of abdominoplasty) Allergies: Allergies Allergy/AdvReac Type Severity Reaction Status Date / Time Hydrocodone-Acetaminophen Allergy Mild Nausea Uncoded 05/31/23 12:01 Review of Systems Sugical H&P ROS: Negative: Constitution, Cardiovascular, Respiratory, Neurological, Psychiatric, Hem-Onc, Allergic/Immunologic, Gastrointestinal, Genitourinary, Musculoskeletal, Integumentary, Endocrine and Eyes/Ears/Nose/Throat Exam Surgical H&P Exam: Normal: HEENT, Normal: Heart, Normal: Lungs, Normal: Extremit ies, Normal: Abdomen, Normal: Skin and Normal: Neurological Plan Diagnosis/Plan: Unchanged I have reviewed the history and physical and performed a pertinent physical examination on my patient. No changes have occurred unless specified. GERD controlled with meds, EGD for screening for barretts Time Spent With Patient Time: Total time managing care of this patient today ____ minutes.
--- NOTE | 2023-05-31 12:49 | W.PM.OPN ---
Operative Note Operative Note Date of Service: 05/31/23 Narrative: Procedure Description: EGD Indication: screening for Barretts Anesthesia: MAC FLEXIBLE TRANSORAL UPPER GASTROINTESTINAL ENDOSCOPY UPPER ENDOSCOPY Consent: Indications for the procedure and potential complications of bleeding, perforation, reaction to medications and missed diagnosis were discussed with the patient and informed consent was obtained. Instrument: Olympus GIF H 190 J mid size upper endoscope Monitoring: Vital signs and clinical assessment, continuous EKG monitoring, Pulse oximetry, Carbon Dioxide monitoring and blood pressure monitoring were done throughout the procedure. Procedure: The patient was placed in the left lateral decubitis position and pre-procedure medications were administered and a bite block was placed. The endoscope was inserted into the mouth and advanced under direct vision to the third part of duodenum. A careful inspection was made as the upper endoscope was withdrawn including a retroflexed examination of the proximal stomach; Findings and interventions are described below. Findings: Larynx:normal Esophagus: GE junction at 33 cm, diaphragm hiatus at 35 cm, small island of salmon pink tissue, bx taken also from distal esophagus Stomach: mild erythema . Biopsies were obtained. Grade 2 flap valve on retroflexed examination of the cardia. LES appeared lax. Duodenum: Normal bulb and descending duodenum, Intervention: Biopsies as noted above, Impression/Findings: gastritis lax LES hiatal hernia possible short segment barretts PLAN: GERD precautions cont with medications which work well if Barretts pos then rept EGD in 3-5 yrs
[2023-05-31 13:20] VITALS: BP 117/79; PULSE 81; RESP 18; TEMP 36.1; O2SAT 98
[2023-05-31 13:35] VITALS: BP 117/77; PULSE 57; RESP 16; TEMP 36.1; O2SAT 100
== END 2023-05-31 14:07 | disposition home or self-care (01) ==
PROVIDERS: Anesthesiology; PCP Family Medicine; Visit Provider Internal Medicine Gastroenterology
PROC: 0DJ08ZZ Inspection of Upper Intestinal Tract, Via Natural or Artificial Opening Endoscopic (ICD-10-PCS; CPT 43235; principal; 2023-05-31 14:30)
DX: K21.9 Gastro-esophageal reflux disease without esophagitis (principal); K29.50 Unspecified chronic gastritis without bleeding; K22.4 Dyskinesia of esophagus; K44.9 Diaphragmatic hernia without obstruction or gangrene; E03.9 Hypothyroidism, unspecified; Z79.1 Long term (current) use of non-steroidal anti-inflammatories (NSAID); Z79.899 Other long term (current) drug therapy; Z88.8 Allergy status to other drugs, medicaments and biological substances
CPT/HCPCS: 43239; 81025; 88305; 88313; 88342; J2704

== ENCOUNTER → 2023-05-31 10:46 | Outpatient (BNV) | payer MEDICAID, SELFPAY | PROVIDERS: PCP Family Medicine; Visit Provider Internal Medicine Gastroenterology | DX: K29.70 Gastritis, unspecified, without bleeding (principal); K44.9 Diaphragmatic hernia without obstruction or gangrene; K22.70 Barrett's esophagus without dysplasia; K22.4 Dyskinesia of esophagus | CPT/HCPCS: 43239 ==

== ENCOUNTER 2023-06-30 12:10 | Outpatient (AMB) | payer MEDICAID, SELFPAY ==
[2023-06-30 12:11] VITALS: BP 123/79; PULSE 63; BMI 24.1
--- NOTE | 2023-06-30 12:11 | MHC.OFFVIS ---
Vital Signs 06/30/23 12:11 Height 5 ft 4 in Weight 140 lb 3.424 oz BMI 24.1 BP 123/79 Blood Pressure Location Lt brachial Position Sitting Pulse 63 Intake Visit Reasons: s/p EGD Intake Note: Felipa presents to in office visit today in follow up of EGD. CC: Patient reports that she has been taking the Omeprazole and it helps a little bit but she continues to experience cough. Core Inspector Required: Yes Accompanied by: Self / Same As Patient Allergies Hydrocodone-Acetaminophen Allergy (Mild, Uncoded 05/31/23 12:01) Nausea HPI HPI s/p EGD: Details: Assessment & Plan (1) GERD (gastroesophageal reflux disease): Code(s): K21.9 - Gastro-esophageal reflux disease without esophagitis Plan [place] [facility] She did receive the famotidine but it did not control her GERD. She was changed from o2o to pantoprazole prior to the last appt by her PCP because she thought she was having trouble with the capsule, but the pantoprazole did not help her. She went back to her omeprazole and now this is helping her better, including with her overnight cough. However, since she has more trouble over-nignt I think we need to move to bid omeprazole dosing. ROV 6 weeks Discontinued famotidine (Pepcid) Discontinued Reason: Doctor's Order 40 mg PO BEDTIME 30 tabs 3RF K21.9 - Gastro-esophageal reflux disease without esophagitis Resumed omeprazole 20 mg PO BID 60 caps 6RF K21.9 - Gastro-esophageal reflux disease without esophagitis omeprazole 20 mg PO DAILY 30 caps 6RF K21.9 - Gastro-esophageal reflux disease without esophagitis EGD 05/31/23 Findings: Larynx:normal Esophagus: GE junction at 33 cm, diaphragm hiatus at 35 cm, small island of salmon pink tissue, bx taken also from distal esophagus Stomach: mild erythema . Biopsies were obtained. Grade 2 flap valve on retroflexed examination of the cardia. LES appeared lax. Duodenum: Normal bulb and descending duodenum, Intervention: Biopsies as noted above, Impression/Findings: gastritis lax LES hiatal hernia possible short segment barretts PLAN: GERD precautions cont with medications which work well if Barretts pos then rept EGD in 3-5 yrs Biopsy Received: 05/31/23 Diagnosis A. Stomach, biopsy: Antral-type and oxyntic mucosa with moderate chronic inactive inflammation; no Helicobacter organisms seen. B. GE junction, biopsy: - Cardiac-type mucosa with moderate chronic inactive inflammation; no intestinal metaplasia seen. - Squamous mucosa within normal limits. C. Esophagus, distal, biopsy: Squamous epithelium within normal limits; no inflammation seen. D. Esophagus, proximal, biopsy: Squamous epithelium within normal limits; no inflammation seen TODAY'S VISIT [place] [employer] The EGD seesm to show some visual irriation, but biopsies are all negative so it seems the omeprazole is doing it job. She did get the omeprazole and found the bid dosing helpful for HB, but she still wakes up in the am with a cough. I will get a barium swallow to evaluate if she has a HH c/t her cough, and she is also requesting that my lungs be checked. I think a pulmonology referral to assess for possible asthma would be prudent as well. She also had an episode of throat burning and voice changes that required a laryngoscope. ROV 8 weeks. [facility]LY [facility], [facility] Medical History (Updated 06/30/23 @ 12:26 by CHIDI Almonte) Potential exposure to STD Pre-op examination Well woman exam with routine gynecological exam Hypothyroid Surgical History History of esophagogastroduodenoscopy (EGD) History of abdominoplasty Family History Father HTN (hypertension) Mother HTN (hypertension) Paternal Grandmother Heart attack Social History Alcohol intake: current Alcohol intake frequency: holidays/special occasions only Patient Tobacco Use Status: Never used Tobacco Gender identity: Female Female Reproductive History Menstrual Age of Menarche: 14 Review of Systems Const Denies fatigue, Denies fever(s), Denies night sweats, Denies poor appetite and Denies weight loss ENT Reports Normal hearing present, Denies dental pain, Denies dysphagia, Denies hearing loss, Denies mouth pain, Denies odynophagia, Denies throat swelling, Denies tongue swelling and Reports other (Dentition adequate) Card Reports no additional complaints Resp Reports cough GI Details: Denies abdominal pain, Denies melena, Denies bloating, Denies hematochezia, Denies constipation, Denies GI cramping, Denies dysphagia, Denies excessive flatus, Denies early satiety, Reports heartburn, Denies diarrhea, Denies nausea, Denies odynophagia, Denies vomiting and Denies hematemesis Skin/Breast Denies pruritus, Denies lesions, Denies rash and Denies jaundice Neuro Reports Normal hearing present and Denies Abnormal speech present Endo Denies fatigue Aller/Immun Denies throat swelling and Denies tongue swelling Physical Exam Vital Signs: Last Vital Signs Pulse 63 06/30/23 12:11 BP 123/79 06/30/23 12:11 BMI result Body Mass Index 24.1 Const General: cooperative, no acute distress, well developed and well groomed Nutritional Appearance: average body habitus and well nourished Orientation/consciousness: oriented to person, oriented to place and oriented to time Limitations: language barrier HEENT Head: Yes normocephalic and Yes atraumatic Eyes General: appearance normal, both eyes and all related structures Pupils: Equal, round and reactive pupils present Neck Neck: Yes normal visual inspection and Yes no lymphadenopathy Thyroid: Thyroid normal Resp Effort & Inspection: normal respiratory effort and able to speak in complete sentences Auscultation: clear to auscultation bilaterally Cardio Rate: regular rate Rhythm: regular rhythm Heart sounds: Normal, physiologic split S2 sound present Peripheral pulses: radial pulses present and posterior tibial pulses present GI Inspection: No distended and No Abdominal panniculus present Palpation (GI): Soft to palpation, nontender, no guarding, not rigid and No hepatosplenomegaly present Percussion: Yes normal to percussion Auscultation: normal bowel sounds Rectal Exam - Female: deferred Skin General skin exam: no rashes or lesions noted, turgor normal, skin not dry, no jaundice, No spider nevi and no striae Rashes: no rashes Nails: normal Neuro General: oriented to person, oriented to place and oriented to time Cranial nerves: Yes Equal, round and reactive pupils present and Yes Normal hearing present Speech: No Abnormal speech present Extrem General: Yes normal to inspection, No clubbing, No cyanosis and No edema Psych Appearance: grossly normal and well kempt Mental Status: mental status grossly normal Speech and movement: Normal speech and movement present Affect: normal affect Attitude: cooperative Thought process: Normal thought process present and not confabulating Thought content: Normal thought content present Insight: Fair insight present (Psych) and Limited insight present (Psych) Judgement: Fair judgement present (Psych) and Limited judgement present (Psych) Results Reviewed Results Reviewed: EGD 05/31/23 Findings: Larynx:normal Esophagus: GE junction at 33 cm, diaphragm hiatus at 35 cm, small island of salmon pink tissue, bx taken also from distal esophagus Stomach: mild erythema . Biopsies were obtained. Grade 2 flap valve on retroflexed examination of the cardia. LES appeared lax. Duodenum: Normal bulb and descending duodenum, Intervention: Biopsies as noted above, Impression/Findings: gastritis lax LES hiatal hernia possible short segment barretts PLAN: GERD precautions cont with medications which work well if Barretts pos then rept EGD in 3-5 yrs Biopsy Received: 05/31/23 Diagnosis A. Stomach, biopsy: Antral-type and oxyntic mucosa with moderate chronic inactive inflammation; no Helicobacter organisms seen. B. GE junction, biopsy: - Cardiac-type mucosa with moderate chronic inactive inflammation; no intestinal metaplasia seen. - Squamous mucosa within normal limits. C. Esophagus, distal, biopsy: Squamous epithelium within normal limits; no inflammation seen. D. Esophagus, proximal, biopsy: Squamous epithelium within normal limits; no inflammation seen Assessment & Plan Assessment & Plan (1) GERD (gastroesophageal reflux disease): Code(s): K21.9 - Gastro-esophageal reflux disease without esophagitis Category: Medical (2) Cough: Code(s): R05.9 - Cough, unspecified Category: Medical Plan [place] [employer] The EGD seesm to show some visual irriation, but biopsies are all negative so it seems the omeprazole is doing it job. She did get the omeprazole and found the bid dosing helpful for HB, but she still wakes up in the am with a cough. I will get a barium swallow to evaluate if she has a HH c/t her cough, and she is also requesting that my lungs be checked. I think a pulmonology referral to assess for possible asthma would be prudent as well. She also had an episode of throat burning and voice changes that required a laryngoscope. ROV 8 weeks. Orders: Orders [place] barium swallow Today K21.9 - Gastro-esophageal reflux disease without esophagitis, R05.9 - Cough, unspecified Referrals Pulmonary Medicine Referral K21.9 - Gastro-esophageal reflux disease without esophagitis, R05.9 - Cough, unspecified Coding Level of Care Code Est Pt Level 3 (09109) Diagnoses GERD (gastroesophageal reflux disease) K21.9 Cough R05.9
== END 2023-06-30 12:31 | disposition home or self-care (01) ==
PROVIDERS: PCP Family Medicine; Visit Provider Nurse Practitioner
DX: K21.9 Gastro-esophageal reflux disease without esophagitis (principal); R05.9 Cough, unspecified
CPT/HCPCS: 99213

== ENCOUNTER → 2023-06-30 12:10 | Outpatient (BNVA) | payer MEDICAID, SELFPAY | PROVIDERS: PCP Family Medicine; Visit Provider Nurse Practitioner | DX: K21.9 Gastro-esophageal reflux disease without esophagitis (principal); R05.9 Cough, unspecified | CPT/HCPCS: 99212 ==

== ENCOUNTER 2023-08-24 09:45 | Outpatient (REF) | payer MEDICAID, SELFPAY ==
--- NOTE | ~2023-08-24 | FL_ITS ---
EXAMINATION: XR FLUOROSCOPY UPPER GI WITH AIR CLINICAL INFORMATION: Reflux. Dysphagia. COMPARISON: None TECHNIQUE: Fluoroscopic air contrast upper GI examination was performed utilizing standard techniques with thin and thick barium and effervescent granules. Numerous spot images were obtained. FINDINGS: Lateral cine images of the oropharynx and hypopharynx demonstrate normal swallow mechanism with normal epiglottic inversion and soft palate elevation. No tracheal penetration, glottic or subglottic aspiration identified. No nasopharyngeal reflux present. Hypopharyngeal structures appear normal without evidence of mass or diverticulum. There is ballooning of the hypopharynx with associated mild cricopharyngeal achalasia present. Dual and single contrast images of the esophagus demonstrate normal caliber, contour, and mucosal pattern. No evidence of stricture, mass, or ulcerations identified. Esophageal peristalsis is mildly disorganized. A small type I hiatal hernia is present. Significant gastroesophageal reflux is seen up to the thoracic inlet. Dual contrast and single contrast images of the stomach demonstrated a normal contour. The gastric rugal folds have a thickened appearance. The masses or ulcerations are seen. Contrast freely passed into the gastric antrum and duodenal bulb without delay. Single and air-contrast images of the duodenal bulb demonstrate no abnormality. The duodenal sweep has a normal appearance, course, and mucosal fold appearance. The imaged proximal jejunum has a normal fold pattern and caliber. FLUOROSCOPY TIME: 3 minutes 28 seconds Number of Spot Images: 11 Number of Cine: 16 DOSE AREA PRODUCT: 1863 uGy-m2 (microgray-meter squared) FL/FL barium swallow IMPRESSION: 1. 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 Mildly disorganized esophageal peristalsis 3. Small type I hiatal hernia 4. Severe gastroesophageal reflux 5. Thickened appearance of the gastric rugal folds which suggests chronic gastritis. This procedure was performed by Stewart Young PA-C, and supervised by Dr. Childers
== END 2023-08-24 09:46 | disposition home or self-care (01) ==
LOC: HO.XRAY 09:45
PROVIDERS: PCP Family Medicine; Visit Provider Nurse Practitioner
DX: K21.9 Gastro-esophageal reflux disease without esophagitis (principal); R05.9 Cough, unspecified
CPT/HCPCS: 74220

== ENCOUNTER → 2023-08-24 09:47 | Outpatient (BNV) | payer MEDICAID, SELFPAY | PROVIDERS: PCP Family Medicine; Visit Provider Physician Assistant Surgical | DX: R13.10 Dysphagia, unspecified (principal); K21.9 Gastro-esophageal reflux disease without esophagitis | CPT/HCPCS: 74246 ==

== ENCOUNTER 2023-08-24 13:49 | Outpatient (REF) | payer MEDICAID, SELFPAY ==
--- NOTE | ~2023-08-24 | US_ITS ---
EXAMINATION: US PELVIS CLINICAL INFORMATION: Uterine fibroid. COMPARISON: Pelvic ultrasound April 28, 2022, October 14, 2021 TECHNIQUE: Ultrasound of the pelvis is performed using both transabdominal and transvaginal transducers along with Doppler. Transvaginal imaging is performed due to inadequate visualization transabdominally. FINDINGS: Uterus: The uterus is anteverted and anteflexed and measures 12.1 x 5.3 x 7.6 cm. Total uterine volume 255 mL The double wall endometrial thickness is 7 mm. The uterus is smooth in contour and has normal myometrial echogenicity. Number than cysts at the cervix. Uterine fibroids: 1. Anterior mid body 3.3 x 3.1 x 3.1 cm. Previous measurement 1.2 x 0.8 x 1.4 cm. 2. Anterior submucosal near the fundus. 1.3 x 0.9 x 1.5 cm. This fibroid was not evident previously. 3. Fundal fibroid. 1.2 x 0.9 x 1 cm. Previous measurement 1 x 1 x 1 cm. Adnexa: Both ovaries are visualized. There is normal color flow to the adnexa. There is no ovarian torsion. Small volume of fluid adjacent to the right ovary. Right ovary measures 3.3 x 2 x 2.3 cm. Volume 8 mL. Previous measurement 2.9 x 1.7 x 3.1 cm. Left ovary measures 3.3 x 1.9 x 3 cm. Volume 9.8 mL Previous measurement 4 x 2.4 x 3.2 cm Cul-de-sac: No fluid in the cul-de-sac. US/US pelvic and transvaginal IMPRESSION: Uterine fibroids.
== END 2023-08-24 13:50 | disposition home or self-care (01) ==
LOC: HO.HMGCX 13:49
PROVIDERS: PCP Advanced Practice Midwife; Visit Provider Advanced Practice Midwife
DX: D21.9 Benign neoplasm of connective and other soft tissue, unspecified (principal)
CPT/HCPCS: 76830; 76856

== ENCOUNTER 2023-09-28 10:54 | Outpatient (AMB) | payer MEDICAID, SELFPAY ==
--- NOTE | 2023-09-28 10:55 | MHC.OFFVIS ---
Vital Signs 09/28/23 10:57 Height 5 ft 4 in Weight 141 lb 1.533 oz BMI 24.2 BP 118/61 Blood Pressure Location Lt brachial Position Sitting Pulse 67 Intake Visit Reasons: 12 week follow up Gerd Intake Note: Felipa presents in the office as a 12 week follow up for GERD. CC: She states that she is not having any concerns today - states that her acid reflux is okay when she takes the medication - if not she will have bad GERD. Laser Beam Color Scanner Operator Required: Yes Laser Beam Color Scanner Operator Name: [id number] [place] Allergies Hydrocodone-Acetaminophen Allergy (Mild, Uncoded 09/28/23 10:55) Nausea HPI HPI 12 week follow up Gerd: Details: Assessment & Plan (1) GERD (gastroesophageal reflux disease): Code(s): K21.9 - Gastro-esophageal reflux disease without esophagitis Category: Medical (2) Cough: Code(s): R05.9 - Cough, unspecified Category: Medical Plan [place] [employer] The EGD seems to show some visual irritation, but biopsies are all negative so it seems the omeprazole is doing it job. She did get the omeprazole and found the bid dosing helpful for HB, but she still wakes up in the am with a cough. I will get a barium swallow to evaluate if she has a HH c/t her cough, and she is also requesting that my lungs be checked. I think a pulmonology referral to assess for possible asthma would be prudent as well. She also had an episode of throat burning and voice changes that required a laryngoscope. ROV 8 weeks. Orders: Orders FL barium swallow Today K21.9 - Gastro-esophageal reflux disease without esophagitis, R05.9 - Cough, unspecified Referrals Pulmonary Medicine Referral K21.9 - Gastro-esophageal reflux disease without esophagitis, R05.9 - Cough, unspecified BARIUM SWALLOW 08/31/23 FINDINGS: Lateral cine images of the oropharynx and hypopharynx demonstrate normal swallow mechanism with normal epiglottic inversion and soft palate elevation. No tracheal penetration, glottic or subglottic aspiration identified. No nasopharyngeal reflux present. Hypopharyngeal structures appear normal without evidence of mass or diverticulum. There is ballooning of the hypopharynx with associated mild cricopharyngeal achalasia present. Dual and single contrast images of the esophagus demonstrate normal caliber, contour, and mucosal pattern. No evidence of stricture, mass, or ulcerations identified. Esophageal peristalsis is mildly disorganized. A small type I hiatal hernia is present. Significant gastroesophageal reflux is seen up to the thoracic inlet. Dual contrast and single contrast images of the stomach demonstrated a normal contour. The gastric rugal folds have a thickened appearance. The masses or ulcerations are seen. Contrast freely passed into the gastric antrum and duodenal bulb without delay. Single and air-contrast images of the duodenal bulb demonstrate no abnormality. The duodenal sweep has a normal appearance, course, and mucosal fold appearance. The imaged proximal jejunum has a normal fold pattern and caliber. FLUOROSCOPY TIME: 3 minutes 28 seconds Number of Spot Images: 11 Number of Cine: 16 DOSE AREA PRODUCT: 1863 uGy-m2 (microgray-meter squared) FL/FL barium swallow IMPRESSION: 1. 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 Mildly disorganized esophageal peristalsis 3. Small type I hiatal hernia 4. Severe gastroesophageal reflux 5. Thickened appearance of the gastric rugal folds which suggests chronic gastritis. TODAY'S VISIT Setswana #[id number], then Master Live I explain the barium swallow, and while the HH is very small there is significant reflux to there thoracic outlet, so this could c/t her cough. She says it happens mostly at night and this is worse when she lays down. We discuss putting blocks under the HOB and not eating several hours before bedtime. She feels that the omeprazole 20mg bid is controlling her HB well. She has an upcoming pulm appt to see if there is any asthma or other factor causing this or if it is multifactorial. ROV 3 mos. [facility] Medical History Potential exposure to STD Pre-op examination Well woman exam with routine gynecological exam Hypothyroid Surgical History History of esophagogastroduodenoscopy (EGD) History of abdominoplasty Family History Father HTN (hypertension) Mother HTN (hypertension) Paternal Grandmother Heart attack Social History Alcohol intake: current Alcohol intake frequency: holidays/special occasions only Patient Tobacco Use Status: Never used Tobacco Gender identity: Female Female Reproductive History Menstrual Age of Menarche: 14 Review of Systems Const Denies fatigue, Denies fever(s), Denies night sweats, Denies poor appetite and Denies weight loss ENT Reports Normal hearing present, Reports change in voice, Denies dental pain, Denies dysphagia, Denies hearing loss, Denies mouth pain, Denies odynophagia, Denies throat swelling, Denies tongue swelling and Reports other (Dentition adequate) Card Reports no additional complaints Resp Reports cough GI Details: Denies abdominal pain, Denies melena, Denies bloating, Denies hematochezia, Denies constipation, Denies GI cramping, Denies dysphagia, Denies excessive flatus, Denies early satiety, Reports heartburn, Denies diarrhea, Denies nausea, Denies odynophagia, Denies vomiting and Denies hematemesis Skin/Breast Denies pruritus, Denies lesions, Denies rash and Denies jaundice Neuro Reports Normal hearing present and Denies Abnormal speech present Endo Denies fatigue Aller/Immun Denies throat swelling and Denies tongue swelling Physical Exam Vital Signs: Last Vital Signs Pulse 67 09/28/23 10:57 BP 118/61 09/28/23 10:57 BMI result Body Mass Index 24.2 Const General: cooperative, no acute distress, well developed and well groomed Nutritional Appearance: average body habitus and well nourished Orientation/consciousness: oriented to person, oriented to place and oriented to time Limitations: language barrier HEENT Head: Yes normocephalic and Yes atraumatic Eyes General: appearance normal, both eyes and all related structures Pupils: Equal, round and reactive pupils present Neck Neck: Yes normal visual inspection and Yes no lymphadenopathy Thyroid: Thyroid normal Resp Effort & Inspection: normal respiratory effort and able to speak in complete sentences Auscultation: clear to auscultation bilaterally Cardio Rate: regular rate Rhythm: regular rhythm Heart sounds: Normal, physiologic split S2 sound present Peripheral pulses: radial pulses present and posterior tibial pulses present GI Inspection: No distended and No Abdominal panniculus present Palpation (GI): Soft to palpation, nontender, no guarding, not rigid and No hepatosplenomegaly present Percussion: Yes normal to percussion Auscultation: normal bowel sounds Rectal Exam - Female: deferred Skin General skin exam: no rashes or lesions noted, turgor normal, skin not dry, no jaundice, No spider nevi and no striae Rashes: no rashes Nails: normal Neuro General: oriented to person, oriented to place and oriented to time Cranial nerves: Yes Equal, round and reactive pupils present and Yes Normal hearing present Speech: No Abnormal speech present Extrem General: Yes normal to inspection, No clubbing, No cyanosis and No edema Psych Appearance: grossly normal and well kempt Mental Status: mental status grossly normal Speech and movement: Normal speech and movement present Affect: normal affect Attitude: cooperative Thought process: Normal thought process present and not confabulating Thought content: Normal thought content present Insight: Limited insight present (Psych) Judgement: Limited judgement present (Psych) Results Reviewed Results Reviewed: BARIUM SWALLOW 08/31/23 FINDINGS: Lateral cine images of the oropharynx and hypopharynx demonstrate normal swallow mechanism with normal epiglottic inversion and soft palate elevation. No tracheal penetration, glottic or subglottic aspiration identified. No nasopharyngeal reflux present. Hypopharyngeal structures appear normal without evidence of mass or diverticulum. There is ballooning of the hypopharynx with associated mild cricopharyngeal achalasia present. Dual and single contrast images of the esophagus demonstrate normal caliber, contour, and mucosal pattern. No evidence of stricture, mass, or ulcerations identified. Esophageal peristalsis is mildly disorganized. A small type I hiatal hernia is present. Significant gastroesophageal reflux is seen up to the thoracic inlet. Dual contrast and single contrast images of the stomach demonstrated a normal contour. The gastric rugal folds have a thickened appearance. The masses or ulcerations are seen. Contrast freely passed into the gastric antrum and duodenal bulb without delay. Single and air-contrast images of the duodenal bulb demonstrate no abnormality. The duodenal sweep has a normal appearance, course, and mucosal fold appearance. The imaged proximal jejunum has a normal fold pattern and caliber. FLUOROSCOPY TIME: 3 minutes 28 seconds Number of Spot Images: 11 Number of Cine: 16 DOSE AREA PRODUCT: 1863 uGy-m2 (microgray-meter squared) FL/FL barium swallow IMPRESSION: 1. 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 Mildly disorganized esophageal peristalsis 3. Small type I hiatal hernia 4. Severe gastroesophageal reflux 5. Thickened appearance of the gastric rugal folds which suggests chronic gastritis. Assessment & Plan Assessment & Plan (1) GERD (gastroesophageal reflux disease): Code(s): K21.9 - Gastro-esophageal reflux disease without esophagitis Category: Medical (2) Cough: Code(s): R05.9 - Cough, unspecified Category: Medical Plan Setswana #[id number], then Master Live I explain the barium swallow, and while the HH is very small there is significant reflux to there thoracic outlet, so this could c/t her cough. She says it happens mostly at night and this is worse when she lays down. We discuss putting blocks under the HOB and not eating several hours before bedtime. She feels that the omeprazole 20mg bid is controlling her HB well. She has an upcoming pulm appt to see if there is any asthma or other factor causing this or if it is multifactorial. ROV 3 mos. Coding Level of Care Code Est Pt Level 3 (15035) Diagnoses GERD (gastroesophageal reflux disease) K21.9 Cough R05.9
[2023-09-28 10:57] VITALS: BP 118/61; PULSE 67; BMI 24.2
== END 2023-09-28 11:26 | disposition home or self-care (01) ==
PROVIDERS: PCP Family Medicine; Visit Provider Nurse Practitioner
DX: K21.9 Gastro-esophageal reflux disease without esophagitis (principal); R05.9 Cough, unspecified
CPT/HCPCS: 99213

== ENCOUNTER → 2023-09-28 10:54 | Outpatient (BNVA) | payer MEDICAID, SELFPAY | PROVIDERS: PCP Family Medicine; Visit Provider Nurse Practitioner | DX: K21.9 Gastro-esophageal reflux disease without esophagitis (principal); R05.9 Cough, unspecified | CPT/HCPCS: 99212 ==

== ENCOUNTER 2023-09-30 15:00 | Outpatient (AMB) | payer MEDICAID, SELFPAY ==
[2023-09-30 15:02] VITALS: BP 113/77; PULSE 64; O2SAT 99; BMI 24.4
--- NOTE | 2023-09-30 15:02 | MHC.OFFVIS ---
Vital Signs 09/30/23 15:02 Height 5 ft 4 in Weight 142 lb 3.17 oz BMI 24.4 BP 113/77 Blood Pressure Location Rt brachial Position Sitting Pulse 64 Pulse Source Doppler Pulse Oximetry (%) 99 Oxygen Delivery Method Room Air Intake Visit Reasons: Cough Allergies Hydrocodone-Acetaminophen Allergy (Mild, Uncoded 09/28/23 10:55) Nausea HPI Comments Details: The patient is here for pulmonary evaluation. The patient is a 43-year-old woman presenting with symptoms of cough. The patient states that she has been coughing for several months. The cough tends to be moderate severity. Nonproductive in nature. She has been evaluated by GI because she does have an abnormal barium swallow. The patient was found to have a hiatal hernia in addition to severe reflux disease. She did undergo an endoscopy. She does have chronic gastritis. She has been placed on medications and also has been trying to maintain a reflux diet. Still her cough is persistent. On further questioning she states that she was diagnosed with high blood pressure. Primarily due to stress. She was placed on an MICHEAL-inhibitor. Explained to the patient that this is a potential cause of cough. Therefore will be reasonable to switch her to an ARB. the patient has not use any inhalers. she has not had any recent chest x-rays or pulmonary function studies. Her last chest x-ray was Bactrim 2021 which I personally reviewed with her demonstrating no acute disease. Will go ahead and switch her to an ARB to minimize the risk of cough. in addition to that a couple months will plan to do PFTs and chest x-ray follow-up. In the meantime also talked about the importance of reflux diet. The patient does have significant reflux noted on her barium swallow and she understands that this is a significant cause for chronic cough. We did talk about small meal sizes and sleeping elevated ideally with bed risers or a with a wedge pillow. The patient otherwise is continue to be followed up by GI at this time. [facility] Medical History Potential exposure to STD Pre-op examination Well woman exam with routine gynecological exam Hypothyroid Surgical History History of esophagogastroduodenoscopy (EGD) History of abdominoplasty Family History Father HTN (hypertension) Mother HTN (hypertension) Paternal Grandmother Heart attack Social History Alcohol intake: current Alcohol intake frequency: holidays/special occasions only Patient Tobacco Use Status: Never used Tobacco Gender identity: Female Female Reproductive History Menstrual Age of Menarche: 14 Review of Systems Const Denies fever(s) ENT Denies post nasal drip Card Denies chest pain Resp Denies chest congestion, Reports cough and Denies wheezing GI Reports as per HPI, Reports dyspepsia and Reports heartburn Musc Reports no additional complaints Skin/Breast Denies rash Reji/Lymph Reports no additional complaints Aller/Immun Denies wheezing Physical Exam Vital Signs: Last Vital Signs Pulse 64 09/30/23 15:02 BP 113/77 09/30/23 15:02 Pulse Ox 99 09/30/23 15:02 Oxygen Delivery Method Room Air 09/30/23 15:02 BMI result Body Mass Index 24.4 Const General: comfortable HEENT Head: Yes normocephalic Neck Neck: Yes supple Chest Chest palpation & inspection: normal inspection of the chest Resp Effort & Inspection: normal respiratory effort Auscultation: clear to auscultation bilaterally Cardio Heart sounds: S1 normal heart sound present and S2 normal heart sound present GI Palpation (GI): Soft to palpation Skin General skin exam: no rashes or lesions noted Extrem General: Yes no clubbing, cyanosis or edema Assessment & Plan Assessment & Plan (1) Cough: Code(s): R05.9 - Cough, unspecified Category: Medical Qualifiers: Cough type: chronic Qualified Code(s): R05.3 - Chronic cough (2) GERD (gastroesophageal reflux disease): Code(s): K21.9 - Gastro-esophageal reflux disease without esophagitis Category: Medical Qualifiers: Esophagitis presence: with esophagitis Esophagitis bleeding: without hemorrhage Qualified Code(s): K21.00 - Gastro-esophageal reflux disease with esophagitis, without bleeding (3) Cough due to MICHEAL inhibitor: Code(s): R05.8 - Other specified cough; T46.4X5A - Adverse effect of wxegbjoodfo-mogkuafnep-lwjlpp inhibitors, initial encounter Category: Medical Plan MICHEAL to ARB reflux diet HOB elevated PFTs CXR F/U 2-3 months Orders: Orders PFT pulmonary function test Today R05.3 - Chronic cough XR chest 2V Today R05.3 - Chronic cough Medications: New losartan 25 mg PO DAILY 30 days 30 tabs 6RF Coding Level of Care Code New Pt Level 4 (11930) Diagnoses Chronic cough R05.3 Cough type: chronic Gastroesophageal reflux disease with esophagitis without hemorrhage K21.00 Esophagitis presence: with esophagitis Esophagitis bleeding: without hemorrhage Cough due to MICHEAL inhibitor R05.8; T46.4X5A Time Spent (min) 35
== END 2023-09-30 15:27 | disposition home or self-care (01) ==
PROVIDERS: PCP Family Medicine; Referring Provider Nurse Practitioner; Visit Provider Hospitalist
DX: R05.3 Chronic cough (principal); K21.00 Gastro-esophageal reflux disease with esophagitis, without bleeding; R05.8 Other specified cough; T46.4X5A Adverse effect of angiotensin-converting-enzyme inhibitors, initial encounter
CPT/HCPCS: 99204

== ENCOUNTER → 2023-09-30 15:00 | Outpatient (BNVA) | payer MEDICAID, SELFPAY | PROVIDERS: PCP Family Medicine; Referring Provider Nurse Practitioner; Visit Provider Hospitalist | DX: R05.3 Chronic cough (principal); T46.4X5A Adverse effect of angiotensin-converting-enzyme inhibitors, initial encounter; K21.00 Gastro-esophageal reflux disease with esophagitis, without bleeding; K44.9 Diaphragmatic hernia without obstruction or gangrene | CPT/HCPCS: 99202 ==

== ENCOUNTER 2023-10-18 09:59 | Outpatient (REF) | payer MEDICAID, SELFPAY ==
--- NOTE | ~2023-10-18 | MM_ITS ---
EXAMINATION: MM SCREENING DIGITAL BREAST TOMOSYNTHESIS, BILATERAL CLINICAL INFORMATION: Screening. Asymptomatic. COMPARISON: Mammography: Available prior examinations. TECHNIQUE: Digital breast tomosynthesis is performed in both the craniocaudal and mediolateral oblique views along with computer-aided detection (CAD). Synthesized 2D images are generated from the tomosynthesis. FINDINGS: The breasts are heterogeneously dense, which may obscure small masses (ACR BI-RADS breast composition Category c). There are no significant masses, abnormal calcifications, or other abnormalities. MM/MM tomosynthesis screening BI IMPRESSION: No mammographic evidence of malignancy. ASSESSMENT: BI-RADS BI-RADS 1 - Negative RECOMMENDATION: Routine annual mammography screening. 1 year F/U This examination should not preclude the clinical evaluation of a suspicious palpable abnormality. This patient's information was entered into a reminder system with a target due date for their next mammogram. Electronically signed by: Tanya Alanis DO 11/12/2023 10:12 AM EDT
== END 2023-10-18 10:00 | disposition home or self-care (01) ==
LOC: HO.MAMMO 09:59
PROVIDERS: PCP Family Medicine; Visit Provider Advanced Practice Midwife
DX: Z12.31 Encounter for screening mammogram for malignant neoplasm of breast (principal)
CPT/HCPCS: 77063; 77067

== ENCOUNTER → 2023-10-18 10:00 | Outpatient (BNV) | payer MEDICAID, SELFPAY | PROVIDERS: PCP Family Medicine; Visit Provider Internal Medicine | DX: Z12.31 Encounter for screening mammogram for malignant neoplasm of breast (principal) | CPT/HCPCS: 77063; 77067 ==

== ENCOUNTER 2023-12-09 10:52 | Outpatient (AMB) | payer MEDICAID, SELFPAY ==
[2023-12-09 10:56] VITALS: BP 108/66; BMI 24.5
--- NOTE | 2023-12-09 10:56 | A.OFFVIS_ITS ---
Vital Signs 12/09/23 10:56 Height 5 ft 4 in Weight 143 lb BMI 24.5 BP 108/66 Intake Visit Reasons: Fibroids/ referral Neurological Surgery Teacher Required: Yes Neurological Surgery Teacher Language: Yoruba Information Interpreted: non-clinical & clinical Accompanied by: Self / Same As Patient Allergies Hydrocodone-Acetaminophen Allergy (Mild, Uncoded 12/09/23 10:57) Nausea Is last menstrual period known: Yes HPI Comments Details: Presenting referred from [facility] regarding heavy vaginal bleeding associated with passage of blood clots and pelvic cramping. Ultrasound done in 09/14 showed the following: Uterus: The uterus is anteverted and anteflexed and measures 12.1 x 5.3 x 7.6 cm. Total uterine volume 255 mL The double wall endometrial thickness is 7 mm. The uterus is smooth in contour and has normal myometrial echogenicity. Number than cysts at the cervix. Uterine fibroids: 1. Anterior mid body 3.3 x 3.1 x 3.1 cm. Previous measurement 1.2 x 0.8 x 1.4 cm. 2. Anterior submucosal near the fundus. 1.3 x 0.9 x 1.5 cm. This fibroid was not evident previously. 3. Fundal fibroid. 1.2 x 0.9 x 1 cm. Previous measurement 1 x 1 x 1 cm. Adnexa: Both ovaries are visualized. There is normal color flow to the adnexa. There is no ovarian torsion. Small volume of fluid adjacent to the right ovary. Right ovary measures 3.3 x 2 x 2.3 cm. Volume 8 mL. Previous measurement 2.9 x 1.7 x 3.1 cm. Left ovary measures 3.3 x 1.9 x 3 cm. Volume 9.8 mL Previous measurement 4 x 2.4 x 3.2 cm Cul-de-sac: No fluid in the cul-de-sac. Last mammogram done in 11/15 was BI-RADS 1 [facility] Medical History Potential exposure to STD Pre-op examination Well woman exam with routine gynecological exam Hypothyroid Surgical History History of esophagogastroduodenoscopy (EGD) History of abdominoplasty Family History Father HTN (hypertension) Mother HTN (hypertension) Paternal Grandmother Heart attack Social History Household Members: Children Housing: House Alcohol intake: current Alcohol intake frequency: holidays/special occasions only Patient Tobacco Use Status: Never used Tobacco Current occupational status: employed 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 Sexually active: Yes Sexual orientation: Straight/Heterosexual Gender identity: Female Female Reproductive History Menstrual Age of Menarche: 14 Total pregnancies: 2 Full term: 2 Number of Living Children: 2 Date of last pap smear: 02/10/19 Date of Mammogram: 10/18/23 Review of Systems Const All systems reviewed & are unremarkable except as noted in HPI and below Physical Exam Vital Signs: Last Vital Signs BP 108/66 12/09/23 10:56 BMI result Body Mass Index 24.5 General: Yes no CVA tenderness External Female Exam: normal external appearance and normal appearance of the urethra Speculum Exam - Vagina: normal appearance of the vagina, normal palpation, no lesions and no masses Speculum Exam - Cervix: normal appearance of the cervix, normal palpation, no lesions, no masses and nontender Bimanual exam- vagina & uterus: normal bimanual exam, normal palpation, uterine size normal, normal palpation, uterine shape normal, No Cervical tenderness present and non-tender Bimanual Exam- Adnexa, other: normal adnexae Back/Spine/Pelvis Back: no CVA tenderness Assessment & Plan Assessment & Plan (1) Abnormal uterine bleeding (AUB): Comment: Uterine myoma Code(s): N93.9 - Abnormal uterine and vaginal bleeding, unspecified Category: Medical Plan: Co testing done, GC and chlamydia taken CBC, TSH, prolactin, HCG ordered. Discussed with the patient the different causes of abnormal bleeding including thyroid disorders, uterine and ovarian pathology, endometrial hyperplasia, carcinoma and other potential causes. Discussed with the patient the work up including CBC (to r/o anemia), TSH, prolactin, pelvic Ultrasound, endometrial biopsy to r/o endometrial pathology. All questions answered and the patient verbalized understanding. Instructed the patient to schedule an appointment for an endometrial biopsy in 2 weeks. Orders: Orders HCG Quantitative Today N93.9 - Abnormal uterine and vaginal bleeding, unspecified Prolactin Today N93.9 - Abnormal uterine and vaginal bleeding, unspecified TSH reflex Free T4 Today N93.9 - Abnormal uterine and vaginal bleeding, unspecified Complete Blood Count no Diff Today N93.9 - Abnormal uterine and vaginal bleeding, unspecified Coding Level of Care Code New Pt Level 3 (13943) Diagnoses Abnormal uterine bleeding (AUB) N93.9
== END 2023-12-09 11:33 | disposition home or self-care (01) ==
PROVIDERS: PCP Family Medicine; Visit Provider Obstetrics & Gynecology
DX: N93.9 Abnormal uterine and vaginal bleeding, unspecified (principal)
CPT/HCPCS: 99203

== ENCOUNTER 2023-12-09 11:40 | Outpatient (REF) | payer MEDICAID, SELFPAY ==
[2023-12-09 12:01] LABS: Hematocrit 31.1 % (37.0-47.0); Mean Corpuscular HGB Conc 32.2 g/dl (31.0-35.0); Mean Corpuscular Hemoglobin 25.7 pg (27.0-33.0); Mean Corpuscular Volume 79.9 fL (80.0-98.0); Mean Platelet Volume 9.5 fL (9.4-12.3); Platelet Count 272 X10*3/uL (160-400); Red Blood Count 3.89 X10*6/uL (4.20-5.50); Red Cell Distribution Width 15.4 % (11.0-16.0); White Blood Count 6.9 X10*3/uL (4.8-10.8)
[2023-12-09 12:54] LABS: HCG Quantitative < 2 mIU/mL; TSH reflex Free T4 2.39 uIU/mL (0.32-4.0)
[2023-12-09 18:26] LABS: CT PCR NOT DETECTED (Not Detect.); NG PCR NOT DETECTED (Not Detect.)
[2023-12-10 18:33] LABS: Prolactin 12.1 ng/mL
[2023-12-14 12:38] LABS: HPV mRNA E6/E7 Not Detected (Not Detected)
== END 2023-12-09 11:41 | disposition home or self-care (01) ==
LOC: HO.LAB 11:40
PROVIDERS: Visit Provider Obstetrics & Gynecology
DX: N93.9 Abnormal uterine and vaginal bleeding, unspecified (principal)
CPT/HCPCS: 36415; 84146; 84443; 84702; 85027; 87491; 87591; 87624; 88175

== ENCOUNTER 2023-12-27 09:01 | Outpatient (REF) | payer MEDICAID, SELFPAY | END 2023-12-27 09:02 | disposition home or self-care (01) | LOC: HO.LNP 09:01 | PROVIDERS: PCP Family Medicine; Visit Provider Hospitalist | DX: N93.9 Abnormal uterine and vaginal bleeding, unspecified (principal); Z32.02 Encounter for pregnancy test, result negative; R05.3 Chronic cough; K21.00 Gastro-esophageal reflux disease with esophagitis, without bleeding; R05.8 Other specified cough; T46.4X5A Adverse effect of angiotensin-converting-enzyme inhibitors, initial encounter | CPT/HCPCS: 58100; 81025; 88305; 99212 ==

== ENCOUNTER 2023-12-27 09:01 | Outpatient (AMB) | payer MEDICAID, SELFPAY ==
--- NOTE | 2023-12-27 09:07 | A.OFFVIS_ITS ---
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 The patient states that she has been coughing for several months. The cough tends to be moderate severity. Nonproductive in nature. She has been evaluated by GI because she does have an abnormal barium swallow. The patient was found to have a hiatal hernia in addition to severe reflux disease. She did undergo an endoscopy. She does have chronic gastritis. She has been placed on medications and also has been trying to maintain a reflux diet. Still her cough is persistent. On further questioning she states that she was diagnosed with high blood pressure. Primarily due to stress. She was placed on an DONNIE-inhibitor. Explained to the patient that this is a potential cause of cough. Therefore will be reasonable to switch her to an ARB. the patient has not use any inhalers. she has not had any recent chest x-rays or pulmonary function studies. Her last chest x-ray was Bactrim 2021 which I personally reviewed with her demonstrating no acute disease. Will go ahead and switch her to an ARB to minimize the risk of cough. in addition to that a couple months will plan to do PFTs and chest x-ray follow-up. In the meantime also talked about the importance of reflux diet. The patient does have significant reflux noted on her barium swallow and she understands that this is a significant cause for chronic cough. We did talk about small meal sizes and sleeping elevated ideally with bed risers or a with a wedge pillow. The patient otherwise is continue to be followed up by GI at this time. 12/27/2023 the patient is here for a pulmonary follow-up visit. Overall she is doing well. Her cough is significantly better. She is trying to maintain the reflux diet. She is also sleeping elevated. She is also taking her PVR with significant improvement. We did review her barium swallow demonstrating severe reflux in addition to gastritis and small hiatal hernia. We did talk about that she does have a GI follow-up. In the meantime the patient's cough is better. Switching her from the Donnie to an ARB significantly helped her cough likely an Donine related cough. She is not using any inhalers at this time. She is scheduled for chest x-ray and PFTs tomorrow. I will review the after the fact in the let her know of any significant findings. Otherwise the patient will follow-up in a year. [facility] Medical History Potential exposure to STD Pre-op examination Well woman exam with routine gynecological exam Hypothyroid Surgical History History of esophagogastroduodenoscopy (EGD) History of abdominoplasty Family History Father HTN (hypertension) Mother HTN (hypertension) Paternal Grandmother Heart attack Social History (Reviewed 12/27/23 @ 09:10 by Shantel Adan [facility]) Household Members: Children Housing: House Alcohol intake: current Alcohol intake frequency: holidays/special occasions only Patient Tobacco Use Status: Never used Tobacco Current occupational status: employed 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 Sexual orientation: Straight/Heterosexual Gender identity: Female Female Reproductive History Menstrual Age of Menarche: 14 Review of Systems Const Denies fever(s) ENT Denies post nasal drip Card Denies chest pain Resp Denies chest congestion, Denies cough and Denies wheezing GI Reports as per HPI, Reports dyspepsia and Reports heartburn Musc Reports no additional complaints Skin/Breast Denies rash Reji/Lymph Reports no additional complaints Aller/Immun Denies wheezing Physical Exam Vital Signs: Last Vital Signs Pulse 67 12/27/23 09:08 BP 110/70 12/27/23 09:08 Pulse Ox 99 12/27/23 09:08 Oxygen Delivery Method Room Air 12/27/23 09:08 BMI result Body Mass Index 24.6 Const General: comfortable HEENT Head: Yes normocephalic Neck Neck: Yes supple Chest Chest palpation & inspection: normal inspection of the chest Resp Effort & Inspection: normal respiratory effort Auscultation: clear to auscultation bilaterally Cardio Heart sounds: S1 normal heart sound present and S2 normal heart sound present GI Palpation (GI): Soft to palpation Skin General skin exam: no rashes or lesions noted Extrem General: Yes no clubbing, cyanosis or edema Assessment & Plan Assessment & Plan (1) Cough: Code(s): R05.9 - Cough, unspecified Category: Medical Qualifiers: Cough type: chronic Qualified Code(s): R05.3 - Chronic cough (2) GERD (gastroesophageal reflux disease): Code(s): K21.9 - Gastro-esophageal reflux disease without esophagitis Category: Medical Qualifiers: Esophagitis bleeding: without hemorrhage Esophagitis presence: with esophagitis Qualified Code(s): K21.00 - Gastro-esophageal reflux disease with esophagitis, without bleeding (3) Cough due to DONNIE inhibitor: Code(s): R05.8 - Other specified cough; T46.4X5A - Adverse effect of qpbqnxouziz-dabyebpcin-kwhsji inhibitors, initial encounter Category: Medical Plan reflux diet HOB elevated PFTs CXR F/U 12 months Coding Level of Care Code Est Pt Level 4 (55697) Diagnoses Chronic cough R05.3 Cough type: chronic Gastroesophageal reflux disease with esophagitis without hemorrhage K21.00 Esophagitis bleeding: without hemorrhage Esophagitis presence: with esophagitis Cough due to DONNIE inhibitor R05.8; T46.4X5A Time Spent (min) 16
[2023-12-27 09:08] VITALS: BP 110/70; PULSE 67; O2SAT 99; BMI 24.6
== END 2023-12-27 09:20 | disposition home or self-care (01) ==
LOC: HO.HPS 09:02
PROVIDERS: PCP Family Medicine; Visit Provider Hospitalist
DX: R05.3 Chronic cough (principal); K21.00 Gastro-esophageal reflux disease with esophagitis, without bleeding; R05.8 Other specified cough; T46.4X5A Adverse effect of angiotensin-converting-enzyme inhibitors, initial encounter
CPT/HCPCS: 99214

== ENCOUNTER 2023-12-27 10:56 | Outpatient (AMB) | payer MEDICAID, SELFPAY ==
[2023-12-27 11:03] VITALS: BP 112/70; BMI 24.5
--- NOTE | 2023-12-27 11:03 | MHC.OFFVIS ---
Vital Signs 12/27/23 11:03 Height 5 ft 4 in Weight 143 lb BMI 24.5 BP 112/70 Blood Pressure Location Lt brachial Position Sitting Intake Visit Reasons: EMB Allergies Hydrocodone-Acetaminophen Allergy (Mild, Uncoded 12/27/23 11:04) Nausea HPI Comments Details: Presenting for EMB [facility] Medical History Potential exposure to STD Pre-op examination Well woman exam with routine gynecological exam Hypothyroid Surgical History History of esophagogastroduodenoscopy (EGD) History of abdominoplasty Family History Father HTN (hypertension) Mother HTN (hypertension) Paternal Grandmother Heart attack Social History Household Members: Children Housing: House Alcohol intake: current Alcohol intake frequency: holidays/special occasions only Patient Tobacco Use Status: Never used Tobacco Current occupational status: employed Current occupation: [employer] Sexual orientation: Straight/Heterosexual Gender identity: Female Female Reproductive History Menstrual Age of Menarche: 14 Review of Systems Const All systems reviewed & are unremarkable except as noted in HPI and below Reports as per HPI and Reports no additional complaints GI Reports no additional complaints Reports no additional complaints Physical Exam Vital Signs: Last Vital Signs BP 112/70 12/27/23 11:03 BMI result Body Mass Index 24.5 Office Procedures Endometrial Biopsy Details: The patient was counseled regarding the indication and benefits of endometrial sampling to rule out endometrial pathology including not limited to endometrial hyperplasia or endometrial cancer and others; The alternatives (Either do nothing vs. hysteroscopy D&C) & the risks were discussed with the patient including but not limited: pain, uterine perforation, bleeding, infection, possible injury to bladder, bowel, ureter, possible need for blood transfusion with all its possible risks. The patient verbalized understanding all questions answered and signed consent. Urine test done in the office was negative The patient was placed into the dorsal lithotomy position; a speculum was inserted in the vagina. Using aseptic technique for the procedure, the cervix was cleansed with Betadine. The anterior lip of the cervix was grasped with a single tooth tenaculum. The uterus was sounded to 7 cm with a 4 mm Pipelle was used. Tissues samples were obtained and placed in formalin, in a patient labeled container and sent to the pathology department. At the end of the procedure, there was minimal bleeding noted The patient tolerated the procedure well and was discharged in good condition with the following instructions: Nothing in the vagina until the bleeding stops. No sex until the bleeding stops, to call if any of the following occurs: fever (>100.4), flu-like symptoms, abdominal pain, heavy bleeding, four smelling vaginal discharge. The patient was instructed to schedule a Follow up appointment in 2 weeks to discuss pathology results of the biopsy and treatment options. This note was generated with a voice recognition program. Some errors may have been overlooked during the review of this note. Sometimes these errors may affect the content or meaning of a given sentence. [id number] Biopsy Results AMB Test Urine AMB Test Urine Negative Last Edit by Barbra Swanson CMA on 12/27/23 11:09 Results Reviewed Results Reviewed: Laboratory Last Values Tst Clinic Negative 12/27/23 11:08 Assessment & Plan Assessment & Plan (1) Abnormal uterine bleeding (AUB): Comment: Uterine myoma Code(s): N93.9 - Abnormal uterine and vaginal bleeding, unspecified Category: Medical Plan: EMB done, see procedure note Orders: Orders AMB HCG Urine Test Today Z32.02 - Encounter for test, result negative AMB Endometrial Biopsy Today N93.9 - Abnormal uterine and vaginal bleeding, unspecified Coding Level of Care Code Procedure Only Diagnoses Abnormal uterine bleeding (AUB) N93.9 CPT Codes Endometrial Biopsy - CPT: 69063-Aeczedycjvl Biopsy ([id number])
== END 2023-12-27 11:40 | disposition home or self-care (01) ==
LOC: HO.HWS 10:57
PROVIDERS: PCP Family Medicine; Visit Provider Obstetrics & Gynecology
DX: N93.9 Abnormal uterine and vaginal bleeding, unspecified (principal); Z32.02 Encounter for pregnancy test, result negative
CPT/HCPCS: 58100

== ENCOUNTER 2023-12-28 14:12 | Outpatient (REF) | payer MEDICAID, SELFPAY ==
[2023-12-28 09:03] VITALS: PULSE 65; RESP 16; O2SAT 98
--- NOTE | 2023-12-28 14:15 | PFT_ITS ---
Flows: FEV1: 88 % of predicted at 2.4 6 L FVC: 85 % of predicted at 2.93 L FEV1/FVC: 82 % Bronchodilator response: Absent Volumes: Total lung capacity: 74 % of predicted at 3.74 L Residual volume: 70 % of predicted at 0.95 L Slow vital capacity: 76 % of predicted at 2.80 L Expiratory reserve volume: 44 % of predicted at 0.47 L Diffusion capacity: Normal Impression: Mild restrictive ventilatory defect with no bronchodilator response. Decreased expiratory reserve volume suggests extrathoracic restriction likely secondary to abdominal obesity. MTDD
== END 2023-12-28 14:13 | disposition home or self-care (01) ==
LOC: HO.RESP 14:12
PROVIDERS: PCP Family Medicine; Visit Provider Hospitalist
DX: R05.3 Chronic cough (principal)
CPT/HCPCS: 71046; 94010; 94640; 94727; 94729

== ENCOUNTER → 2023-12-28 14:15 | Outpatient (BNV) | payer MEDICAID, SELFPAY | PROVIDERS: PCP Family Medicine; Visit Provider Internal Medicine Pulmonary Disease | DX: R05.3 Chronic cough (principal) | CPT/HCPCS: 94060; 94727; 94729 ==

== ENCOUNTER 2024-01-04 07:58 | Outpatient (AMB) | payer MEDICAID, SELFPAY ==
--- NOTE | 2024-01-04 07:58 | A.OFFVIS_ITS ---
Intake Visit Reasons: EMB results Gyroscope Repairer Required: Yes Gyroscope Repairer Language: Circus Trainer Services: Gyroscope Repairer Present (in person) Gyroscope Repairer Name: Fatemeh AWAD Allergies Hydrocodone-Acetaminophen Allergy (Mild, Uncoded 12/27/23 11:04) Nausea HPI Comments Details: The patient schedule telehealth visit for follow-up to discuss the results of her abnormal uterine bleeding workup and options of treatment. The following workup was done.: H&H= 12/22.1 TSH, prolactin, hCG, GC and chlamydia were negative. Endometrial biopsy pathology showed the following: Endometrium, biopsy: Proliferative endometrium; few strips of endocervical epithelium within normal limits; no atypia or hyperplasia identified Co testing was done was negative. Mammogram was BI-RADS 1 Pelvic ultrasound showed the following: Uterus: The uterus is anteverted and anteflexed and measures 12.1 x 5.3 x 7.6 cm. Total uterine volume 255 mL The double wall endometrial thickness is 7 mm. The uterus is smooth in contour and has normal myometrial echogenicity. Number than cysts at the cervix. Uterine fibroids: 1. Anterior mid body 3.3 x 3.1 x 3.1 cm. Previous measurement 1.2 x 0.8 x 1.4 cm. 2. Anterior submucosal near the fundus. 1.3 x 0.9 x 1.5 cm. This fibroid was not evident previously. 3. Fundal fibroid. 1.2 x 0.9 x 1 cm. Previous measurement 1 x 1 x 1 cm. Adnexa: Both ovaries are visualized. There is normal color flow to the adnexa. There is no ovarian torsion. Small volume of fluid adjacent to the right ovary. Right ovary measures 3.3 x 2 x 2.3 cm. Volume 8 mL. Previous measurement 2.9 x 1.7 x 3.1 cm. Left ovary measures 3.3 x 1.9 x 3 cm. Volume 9.8 mL Previous measurement 4 x 2.4 x 3.2 cm Cul-de-sac: No fluid in the cul-de-sac. 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 Sexual orientation: Straight/Heterosexual Gender identity: Female Female Reproductive History Menstrual Age of Menarche: 14 Telehealth Telehealth Telehealth Platform: Telephone Location of provider rendering services: practice address Location of patient: address on file Patient Identification confirmed using: Name, : Yes Telehealth method: video Patient verbally consented to treatment: Yes Patient verbally consented to billing insurance company: Yes Patient informed of any privacy concerns related to visit: Yes Assessment & Plan Assessment & Plan (1) Abnormal uterine bleeding (AUB): Comment: with anemia Code(s): N93.9 - Abnormal uterine and vaginal bleeding, unspecified Category: Medical Plan: Iron sulfate 325 mg p.o. q.d. recommended the patient for 3 months and repeat CBC afterwards. Discussed with the patient the results of the work up done and options of treatment including Lysteda, BCP's, Mirena IUD, endometrial ablation and hysterectomy. All pros, cons, risks and benefits if each option was discussed with the patient and the patient decided to go ahead with Lysteda , so a more detailed discussion re: Lysteda including mechanism of action, benefits, risks including but not limited to thrombosis and strokes, Instructions were given on how to use, 2 tablets p.o. 3 times a day day 1 up to 3-5 days of menses and to schedule a 3 months follow-up appointment. The patient verbalized understanding and agreed with the plan. (2) Uterine myoma: Code(s): D25.9 - Leiomyoma of uterus, unspecified Category: Medical Plan: Discussed with the patient the findings on pelvic ultrasound & the risk of myosarcoma; discussed with the patient the options of treatment including expectant management versus hysterectomy; the pros and cons, risks benefits of each approach were discussed with the patient including the fact that in cases of myosarcoma, surgical treatment can lead to early diagnosis and positively affects the prognosis; after further discussion, the patient decided to proceed with expectant management. Will repeat pelvic ultrasound periodically. Instructions given to patient to call in case any of the following occurs: pressure symptoms, abnormal uterine bleeding, pelvic pain; and to schedule a six-months pelvic ultrasound and a follow-up appointment . All questions answered, the patient verbalized understanding and agreed with the plan . I spent a total of 20 minutes reviewing the chart, talking to the patient via video and documenting in the medical record. Orders: Orders US pelvic and transvaginal 6 Months D25.9 - Leiomyoma of uterus, unspecified Complete Blood Count no Diff 3 Months N93.9 - Abnormal uterine and vaginal bleeding, unspecified Medications: New tranexamic acid Start 1st day of menses and take it up to 3-5 days of menses. 1,300 mg (2 x 650 mg) PO TID 5 days 30 tabs 2RF Coding Level of Care Code Tele Est Pt Level 3 (34611) Diagnoses Abnormal uterine bleeding (AUB) N93.9 Uterine myoma D25.9
== END 2024-01-05 08:37 | disposition home or self-care (01) ==
LOC: HO.HWS 07:58
PROVIDERS: PCP Family Medicine; Visit Provider Obstetrics & Gynecology
DX: N93.9 Abnormal uterine and vaginal bleeding, unspecified (principal); D25.9 Leiomyoma of uterus, unspecified
CPT/HCPCS: 99213

== ENCOUNTER → 2024-01-04 07:58 | Outpatient (BNVA) | payer MEDICAID, SELFPAY | PROVIDERS: PCP Family Medicine; Visit Provider Obstetrics & Gynecology | DX: Z01.818 Encounter for other preprocedural examination (principal); K21.00 Gastro-esophageal reflux disease with esophagitis, without bleeding; Z83.719 Family history of colon polyps, unspecified; N93.9 Abnormal uterine and vaginal bleeding, unspecified; D25.9 Leiomyoma of uterus, unspecified | CPT/HCPCS: 99212 ==

== ENCOUNTER 2024-01-04 10:31 | Outpatient (AMB) | payer MEDICAID, SELFPAY ==
[2024-01-04 10:40] VITALS: BP 136/78; PULSE 59; BMI 24.6
--- NOTE | 2024-01-04 10:40 | A.OFFVIS_ITS ---
Vital Signs 01/04/24 10:40 Height 5 ft 4 in Weight 143 lb 4.807 oz BMI 24.6 BP 136/78 Blood Pressure Location Lt brachial Position Sitting Pulse 59 Intake Visit Reasons: 3 month follow up Intake Note: Felipa presents in the office as a 3months follow up for GERD. CC: She states that she is not having any concerns today and has been doing fine. Gas Station Manager Required: Yes Accompanied by: Self / Same As Patient Allergies hydrocodone Allergy (Mild, Verified 02/06/24 14:02) Nausea HPI HPI 3 month follow up: Details: Assessment & Plan (1) GERD (gastroesophageal reflux disease): Code(s): K21.9 - Gastro-esophageal reflux disease without esophagitis Category: Medical (2) Cough: Code(s): R05.9 - Cough, unspecified Category: Medical Plan Portuguese #[id number], then Master Live I explain the barium swallow, and while the HH is very small there is significant reflux to there thoracic outlet, so this could c/t her cough. She says it happens mostly at night and this is worse when she lays down. We discuss putting blocks under the HOB and not eating several hours before bedtime. She feels that the omeprazole 20mg bid is controlling her HB well. She has an upcoming pulm appt to see if there is any asthma or other factor causing this or if it is multifactorial. ROV 3 mos. Laboratory Tests 12/09/23 11:53 WBC 6.9 Hgb 10.0 L Hct 31.1 L MCV 79.9 L MCH 25.7 L Plt Count 272 TODAY'S VISIT Portuguese #Felipa Live She has a lot of HB if I don't take the medicines, but it goes away with the medicines. She is encouraged to continue her omeprazole as it is fairly low dose. She saw the pulm, and they changed her BP pill (MICHEAL!) and after this she felt much better. She denies any cardiac or respiratory problems. NO ID problems There are no prior problems with anesthesia or sedation. No known FHX crc or polyps - but her brother had something found on a scope last year in [place]. (then she says it was a polyp) Return office visit in 6 months and after her colonoscopy. [facility] Medical History Pre-op examination Bartholin cyst Relies on tubal ligation as primary control method Cough due to MICHEAL inhibitor Cough Potential exposure to STD Well woman exam with routine gynecological exam Hypothyroid Surgical History History of esophagogastroduodenoscopy (EGD) History of abdominoplasty Family History Father HTN (hypertension) Mother HTN (hypertension) Paternal Grandmother Heart attack Social History Household Members: Children Housing: House Alcohol intake: current Alcohol intake frequency: holidays/special occasions only Patient Tobacco Use Status: Never used Tobacco Smoked in Last 30 Days: No Use of substances other than those prescribed or required for medical reasons: No Advance Directives: No Advance Directives Information Provided: No Do you have a plan to hurt others: No Plan Patient : No Current occupational status: employed 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 Sexual orientation: Straight/Heterosexual Gender identity: Female Female Reproductive History Menstrual Age of Menarche: 14 Review of Systems Const Denies fatigue, Denies fever(s), Denies night sweats, Denies poor appetite and Denies weight loss ENT Reports Normal hearing present, Denies dental pain, Denies dysphagia, Denies hearing loss, Denies mouth pain, Denies odynophagia, Denies throat swelling, Denies tongue swelling and Reports other (Dentition adequate) Card Reports no additional complaints Resp Reports no additional complaints GI Details: Denies abdominal pain, Denies melena, Denies bloating, Denies hematochezia, Denies constipation, Denies GI cramping, Denies dysphagia, Denies excessive flatus, Denies early satiety, Reports heartburn, Denies diarrhea, Denies nausea, Denies odynophagia, Denies vomiting and Denies hematemesis Skin/Breast Denies pruritus, Denies lesions, Denies rash and Denies jaundice Neuro Reports Normal hearing present and Denies Abnormal speech present Endo Denies fatigue Aller/Immun Denies throat swelling and Denies tongue swelling Physical Exam Vital Signs: Last Vital Signs Pulse 59 01/04/24 10:40 BP 136/78 01/04/24 10:40 BMI result Body Mass Index 24.6 Const General: cooperative, no acute distress, well developed and well groomed Nutritional Appearance: average body habitus and well nourished Orientation/consciousness: oriented to person, oriented to place and oriented to time Limitations: language barrier HEENT Head: Yes normocephalic and Yes atraumatic Eyes General: appearance normal, both eyes and all related structures Pupils: Equal, round and reactive pupils present Neck Neck: Yes normal visual inspection and Yes no lymphadenopathy Thyroid: Thyroid normal Resp Effort & Inspection: normal respiratory effort and able to speak in complete sentences Auscultation: clear to auscultation bilaterally Cardio Rate: regular rate Rhythm: regular rhythm Heart sounds: Normal, physiologic split S2 sound present Peripheral pulses: radial pulses present and posterior tibial pulses present GI Inspection: No distended and No Abdominal panniculus present Palpation (GI): Soft to palpation, nontender, no guarding, not rigid and No hepatosplenomegaly present Percussion: Yes normal to percussion Auscultation: normal bowel sounds Rectal Exam - Female: deferred Skin General skin exam: no rashes or lesions noted, turgor normal, skin not dry, no jaundice, No spider nevi and no striae Rashes: no rashes Nails: normal Neuro General: oriented to person, oriented to place and oriented to time Cranial nerves: Yes Equal, round and reactive pupils present and Yes Normal hearing present Speech: No Abnormal speech present Extrem General: Yes normal to inspection, No clubbing, No cyanosis and No edema Psych Appearance: grossly normal and well kempt Mental Status: mental status grossly normal Speech and movement: Normal speech and movement present Affect: normal affect Attitude: cooperative Thought process: Normal thought process present and not confabulating Thought content: Normal thought content present Insight: Fair insight present (Psych) Judgement: Fair judgement present (Psych) Assessment & Plan Assessment & Plan (1) GERD (gastroesophageal reflux disease): Code(s): K21.9 - Gastro-esophageal reflux disease without esophagitis Category: Medical Qualifiers: Esophagitis bleeding: without hemorrhage Esophagitis presence: with esophagitis Qualified Code(s): K21.00 - Gastro-esophageal reflux disease with esophagitis, without bleeding (2) Pre-op examination: Code(s): Z01.818 - Encounter for other preprocedural examination Category: Medical (3) Family history of polyps in the colon: Code(s): Z83.719 - Family history of colon polyps, unspecified Category: Medical Plan Portuguese #Felipa Live She has a lot of HB if I don't take the medicines, but it goes away with the medicines. She is encouraged to continue her omeprazole as it is fairly low dose. She saw the pulm, and they changed her BP pill (MICHEAL!) and after this she felt much better. She denies any cardiac or respiratory problems. NO ID problems There are no prior problems with anesthesia or sedation. No known FHX crc or polyps - but her brother had something found on a scope last year in [place]. (then she says it was a polyp) Return office visit in 6 months and after her colonoscopy. Orders: Orders Colonoscopy - GI Use Only 01/04/24 Z01.818 - Encounter for other preprocedural examination Medications: New bisacodyl (Dulcolax (bisacodyl)) 10 mg (2 x 5 mg) PO BEDTIME 4 tabs 0RF 2 days polyethylene glycol 3350 (Miralax) 238 grams PO ONCE 238 grams 0RF colonoscopy p rep 1 day Coding Level of Care Code Est Pt Level 4 (36234) Diagnoses Gastroesophageal reflux disease with esophagitis without hemorrhage K21.00 Esophagitis bleeding: without hemorrhage Esophagitis presence: with esophagitis Pre-op examination Z01.818 Family history of polyps in the colon Z83.719 Time Spent (min) 33
== END 2024-01-04 12:04 | disposition home or self-care (01) ==
PROVIDERS: PCP Family Medicine; Visit Provider Nurse Practitioner
DX: K21.00 Gastro-esophageal reflux disease with esophagitis, without bleeding (principal); Z12.11 Encounter for screening for malignant neoplasm of colon; Z83.719 Family history of colon polyps, unspecified
CPT/HCPCS: 99214

== ENCOUNTER 2024-02-06 13:47 | Emergency (ER) | payer MEDICAID, SELFPAY ==
--- NOTE | ~2024-02-06 | CT_ITS ---
EXAMINATION: CT ABDOMEN AND PELVIS WITH CONTRAST CLINICAL INFORMATION: Mid abdominal pain. Elevated lipase. COMPARISON: Pelvic ultrasound dated 08/24/2023. TECHNIQUE: Multidetector volumetric images were obtained from the superior aspect of the liver through the pubic symphysis following administration 85 mL of Omnipaque 350 intravenous contrast. Sagittal and coronal reformatted images were obtained on the technologist's workstation. Oral Contrast: No. This CT examination was performed using dose optimization techniques as appropriate, variously including the following: *Automated exposure control. *Adjustment of mA and/or kV according to patient size (this includes techniques or standardized protocols for targeted exams where dose is matched to indication/reason for exam; i.e. extremities or head). *Use of iterative reconstruction technique. DLP: 498 mGy-cm FINDINGS: LUNG BASES: The visualized lung bases are unremarkable. LIVER, GALLBLADDER, AND BILIARY TREE: The liver is normal in size, shape, and attenuation. No focal hepatic lesion or biliary ductal dilatation is present. The gallbladder is unremarkable with no evidence of radiopaque gallstones, gallbladder wall thickening, or obvious pericholecystic inflammatory changes. PANCREAS: Unremarkable. SPLEEN: Unremarkable. ADRENAL GLANDS: Unremarkable. KIDNEYS AND URETERS: The kidneys are normal in size, shape, and attenuation. No hydronephrosis, hydroureter, or calculi seen. No perinephric stranding. BLADDER: Unremarkable. GASTROINTESTINAL TRACT: Small, sliding hiatal hernia. No small or large bowel obstruction. No bowel wall thickening or inflammatory change. Unremarkable appendix. PERITONEAL CAVITY: No intra-abdominal free air or free fluid. ABDOMINAL WALL: No significant hernia is appreciated. LYMPH NODES: No lymphadenopathy. VASCULAR: Unremarkable. PELVIC VISCERA: Redemonstration of a fibroid uterus. OSSEOUS STRUCTURES: No acute osseous abnormality. Vertebral body hemangioma at T12. Lumbarization of the S1 vertebral body. CT/CT abdomen pelvis w IV con IMPRESSION: 1. Small, sliding hiatal hernia. No small or large bowel obstruction. No bowel wall thickening or inflammatory change. Unremarkable appendix. 2. No intra-abdominal mass, lymphadenopathy, or ascites. 3. Fibroid uterus. Fleischner guidelines were followed. Electronically signed by: Marcell Huynh MD 02/06/2024 07:24 PM [facility]
--- NOTE | 2024-02-06 13:54 | ED.GENADULT ---
HPI - General Adult General Chief complaint: Abdominal Pain Stated complaint: Abd pain vomiting Time Seen by Provider: 02/06/24 17:05 Source: patient Mode of arrival: ambulatory Limitations: no limitations History of Present Illness ED Provider: HPI narrative: Patient with history of gastric reflux been having pain in upper abdomen for last 2 days had swallowed a chicken bone 5 days ago got better of pain started 2 days ago with nausea no vomiting patient does have history of gastritis in the past no alcohol use no history of pancreatitis Related Data Home Medications ?Medication ?Instructions ?Recorded ?Confirmed levothyroxine 88 mcg tablet 88 mcg PO DAILY 10/29/21 05/31/23 naproxen 500 mg tablet 500 mg PO BID PRN pain 10/29/21 05/31/23 Previous Rx's ?Medication ?Instructions ?Recorded ibuprofen 600 mg tablet 600 mg PO Q6H PRN pain #30 tabs 11/11/21 omeprazole 20 mg capsule,delayed 20 mg PO BID #60 caps 05/19/23 release losartan 25 mg tablet 25 mg PO DAILY 30 days #30 tabs 09/30/23 ferrous sulfate 325 mg (65 mg 325 mg PO DAILY 30 days #30 tabs 12/10/23 iron) tablet bisacodyl 5 mg tablet,delayed 10 mg (2 x 5 mg) PO BEDTIME 2 days 01/04/24 release (Dulcolax (bisacodyl)) #4 tabs polyethylene glycol 3350 17 238 g PO ONCE colonoscopy prep 1 01/04/24 gram/dose oral powder (Miralax) day #238 grams tranexamic acid 650 mg tablet 1,300 mg (2 x 650 mg) PO TID 5 01/31/24 days #30 tabs sucralfate 1 gram tablet 1 g PO TID #90 tabs 02/06/24 Allergies Allergy/AdvReac Type Severity Reaction Status Date / Time hydrocodone Allergy Mild Nausea Verified 02/06/24 14:02 Review of Systems Review of Systems: Yes all other systems are reviewed and are negative PMFSH Past Medical History Medical History Pre-op examination Bartholin cyst Relies on tubal ligation as primary control method Cough due to MICHEAL inhibitor Cough Potential exposure to STD Well woman exam with routine gynecological exam Hypothyroid Surgical History History of esophagogastroduodenoscopy (EGD) History of abdominoplasty Family History Family History Father HTN (hypertension) Mother HTN (hypertension) Paternal Grandmother Heart attack Social History Social History Household Members: Children Housing: House Alcohol intake: current Alcohol intake frequency: holidays/special occasions only Patient Tobacco Use Status: Never used Tobacco Smoked in Last 30 Days: No Use of substances other than those prescribed or required for medical reasons: No Advance Directives: No Advance Directives Information Provided: No Do you have a plan to hurt others: No Plan Patient : No Current occupational status: employed 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 Oriented X3. No acute distress. Eyes: PERRLA, No Nystagmus ENT: Pharynx normal. Oral Mucosa moist Neck: Normal inspection. Neck supple. CVS: Normal heart rate and rhythm. Pulses normal. Respiratory: No respiratory distress. Equal air entry bilateral, no wheezing/rales/rhonchi Abdomen: Soft and mild tenderness in epigastric area no rebound tenderness or guarding. Bowel sounds are present, no mass palpable, no CVA tenderness Skin: Skin warm and dry. Normal skin color. Normal skin turgor. Extremities: No lower extremity edema. No calf tenderness Neuro: Oriented X 3. No motor deficit. Course Course Course Narrative: This is an RME performed by Mckay Morgan CNP: Additional HPI, ROS, PE not included below will be deferred to primary provider. patient is a 43-year-old female who presents to the emergency department for evaluation of it is 6 Days ago she was ED was sick when she swallowed a chicken bone, felt it was stuck in her esophagus she continued to eat to try to help it passed, subsequently was having abdominal pain to the epigastric region that night. reports that after that she was experiencing a bloating sensation to the upper abdomen. However she reports that last night she felt return of a similar pain to the epigastric region. Denies associated nausea, vomiting, fevers, diarrhea, constipation, hematochezia, melena, symptoms. Plan: Serum labs Medications Administered Discontinued Medications Generic Name Dose Route Start Last Admin Trade Name Freq PRN Reason Stop Dose Admin Al Hydroxide/Mg Hydroxide 30 ml 02/06/24 20:09 02/06/24 20:15 Magnesium Hydrox/Alum Hydrox 30 Ml Oral.Susp PO 02/06/24 20:10 30 ml ONCE ONE Administration Famotidine 20 mg 02/06/24 19:39 02/06/24 19:48 Famotidine/Pf 20 Mg/2 Ml Vial IVPUSH 02/06/24 19:40 20 mg ONCE ONE Administration Sodium Chloride 1,000 mls @ 999 mls/hr 02/06/24 17:14 02/06/24 18:14 Ns IV 02/06/24 18:14 999 mls/hr .Q1H1M ONE Administration Iohexol 100 ml 02/06/24 19:00 02/06/24 19:01 Iohexol 350 Mg/Ml 100 Ml Infus..Btl IV 02/06/24 19:01 85 ml ONCE ONE Administration Morphine Sulfate 4 mg 02/06/24 17:14 02/06/24 18:14 Morphine Sulfate 4 Mg/Ml Cartridge IVPUSH 02/06/24 17:15 4 mg ONCE ONE Administration Protocol Ondansetron HCl 4 mg 02/06/24 17:14 02/06/24 18:14 Ondansetron Hcl 4 Mg/2 Ml Vial IVPUSH 02/06/24 17:15 4 mg ONCE ONE Administration Medical Decision Making Medical Decision Making MDM Narrative: Patient has epigastric pain with history of gastritis taking Prilosec CT scan negative for acute patient has had slightly elevated lipase patient advised to have clear liquids take Prilosec and sucralfate and follow up with PCP and report to the ER if pain gets worse Differential Diagnosis Differential Diagnoses: The differential diagnosis associated with the presentation includes Lab Data MDM Lab Attestation statement: I reviewed the patient's lab results. 02/06/24 14:16 02/06/24 14:16 Labs: Lab Results 02/06/24 Range/Units 14:16 WBC 7.5 (4.8-10.8) X10*3/uL RBC 4.31 (4.20-5.50) X10*6/uL Hgb 12.2 D (12.0-16.0) g/dl Hct 35.7 L (37.0-47.0) % MCV 82.8 (80.0-98.0) fL MCH 28.3 (27.0-33.0) pg MCHC 34.2 (31.0-35.0) g/dl RDW 16.8 H (11.0-16.0) % Plt Count 271 (160-400) X10*3/uL MPV 9.6 (9.4-12.3) fL Immature Gran % (Auto) 0.3 (0.0-0.4) % Neut % (Auto) 49.2 (45-73) % Lymph % (Auto) 35.9 (20-40) % [place]oke % (Auto) 11.3 H (2-11) % Eos % (Auto) 2.1 (0-4) % Baso % (Auto) 1.2 (0-2) % Lymph # (Auto) 2.7 (1.2-4.9) X10*3/uL [place]oke # (Auto) 0.9 (0.1-1.2) X10*3/uL Eos # (Auto) 0.2 (0.0-0.4) X10*3/uL Baso # (Auto) 0.1 (0.0-0.2) X10*3/uL Abs Immat Gran (auto) 0.02 (0.00-0.03) X10*3/uL Absolute Neuts (auto) 3.7 (2.0-8.3) x10*3/uL Absolute Nucleated RBC 0.000 (0.0-0.012) X10*3/uL Nucleated RBC % (auto) 0.0 (0.0-0.2) /100WBC Sodium 138 (135-145) mmol/L Potassium 4.0 (3.3-5.1) mmol/L Chloride 109 H (96-108) mmol/L Carbon Dioxide 24 (22-29) mmol/L Anion Gap 9 L (12-20) BUN 14 (9-16) mg/dL Creatinine 0.82 (0.5-1.4) mg/dL Estim Creat Clear Calc 77.6 Estimated GFR > 60 Random Glucose 91 (60-115) mg/dL Calcium 8.6 (8.4-10.2) mg/dL Total Bilirubin 0.2 (0.0-1.0) mg/dL AST 21 (5-31) U/L ALT 22 (0-31) U/L Alkaline Phosphatase 75 (39-117) U/L Total Protein 7.6 (6.5-8.0) g/dL Albumin 4.2 (3.5-5.0) g/dL Triglycerides 270 H (<150) mg/dL Lipase 311 H (8-78) U/L Independent Interpretation I performed an independent interpretation of an: CT Scan Interpretation: No acute findings Radiology Impression Discussion of test interpretation with radiology: I have reviewed the radiologist's reading. Discharge Plan Discharge Clinical Impression: Gastritis, Elevated lipase Patient Disposition: Home, Self-Care Instructions: Gastritis (ED) Additional Instructions: Continue to take your Prilosec Sucralfate 3 times a day as advised Clear liquids advanced slowly as you might have inflammation of the pancreas also Report to your PCP/ED if pain in epigastric area gets worse Prescriptions: New sucralfate 1 gram tablet 1 g PO TID Qty: 90 0RF No Action ferrous sulfate 325 mg (65 mg iron) tablet 325 mg PO DAILY 30 Days Qty: 30 3RF tranexamic acid 650 mg tablet 1,300 mg PO TID 5 Days Qty: 30 2RF Rx Instructions: Start 1st day of menses and take it up to 3-5 days of menses. ibuprofen 600 mg tablet 600 mg PO Q6H PRN (Reason: pain) Qty: 30 0RF levothyroxine 88 mcg tablet 88 mcg PO DAILY naproxen 500 mg tablet 500 mg PO BID PRN (Reason: pain) omeprazole 20 mg capsule,delayed release(DR/EC) 20 mg PO BID Qty: 60 6RF losartan 25 mg tablet 25 mg PO DAILY 30 Days Qty: 30 6RF polyethylene glycol 3350 [Miralax] 17 gram/dose powder 238 g PO ONCE 1 Days Qty: 238 0RF bisacodyl [Dulcolax (bisacodyl)] 5 mg tablet,delayed release (DR/EC) 10 mg PO BEDTIME 2 Days Qty: 4 0RF Print Language: Gibraltarian
[2024-02-06 13:58] VITALS: BP 162/90; PULSE 69; RESP 18; TEMP 37.1; O2SAT 100; BMI 24.7
[2024-02-06 14:19] LABS: MANUAL DIFF FLAG NO
[2024-02-06 14:20] LABS: Basophils Absolute Auto 0.1 X10*3/uL (0.0-0.2); Basophils Percent Auto 1.2 % (0-2); Eosinophils Absolute Auto 0.2 X10*3/uL (0.0-0.4); Eosinophils Percent Auto 2.1 % (0-4); Hematocrit 35.7 % (37.0-47.0); Hemoglobin 12.2 g/dl (12.0-16.0); Imm Gran Abs Auto 0.02 X10*3/uL (0.00-0.03); Imm Gran Pct Auto 0.3 % (0.0-0.4); Lymphocytes Absolute Auto 2.7 X10*3/uL (1.2-4.9); Lymphocytes Percent Auto 35.9 % (20-40); Mean Corpuscular HGB Conc 34.2 g/dl (31.0-35.0); Mean Corpuscular Hemoglobin 28.3 pg (27.0-33.0); Mean Corpuscular Volume 82.8 fL (80.0-98.0); Mean Platelet Volume 9.6 fL (9.4-12.3); Monocytes Absolute Auto 0.9 X10*3/uL (0.1-1.2); Monocytes Percent Auto 11.3 % (2-11); Neutrophils Absolute Auto 3.7 x10*3/uL (2.0-8.3); Neutrophils Percent Auto 49.2 % (45-73); Platelet Count 271 X10*3/uL (160-400); Red Blood Count 4.31 X10*6/uL (4.20-5.50); Red Cell Distribution Width 16.8 % (11.0-16.0); White Blood Count 7.5 X10*3/uL (4.8-10.8)
[2024-02-06 14:37] LABS: Alanine Aminotransferase 22 U/L (0-31); Albumin Level 4.2 g/dL (3.5-5.0); Alkaline Phosphatase 75 U/L (39-117); Anion Gap 9 (12-20); Aspartate Amino Transferase 21 U/L (5-31); Bilirubin Total 0.2 mg/dL (0.0-1.0); Blood Urea Nitrogen 14 mg/dL (9-16); Calcium 8.6 mg/dL (8.4-10.2); Carbon Dioxide 24 mmol/L (22-29); Chloride 109 mmol/L (96-108); Creatinine Clr Calc Pharmacy 77.6; Estimated Glomerular Filt Rate > 60; Glucose Random 91 mg/dL (60-115); Sodium 138 mmol/L (135-145); Total Protein 7.6 g/dL (6.5-8.0)
[2024-02-06 14:47] LABS: Lipase 311 U/L (8-78)
[2024-02-06 16:51] VITALS: BP 164/83; PULSE 60; RESP 16; O2SAT 100
--- NOTE | 2024-02-06 16:55 | PC.NURSE ---
Pt comes to ED today c/o epigastric pain x5 days. Pt reports pain feels like something is stuck in that location. VSS, A&Ox3 Skin is warm and dry Breaths and speech are unlabored Facial symmetry noted. Blood work completed via triage. NAD at this time. Awaiting ED provider.
[2024-02-06 17:39] LABS: Triglycerides 270 mg/dL (<150)
[2024-02-06 18:14] VITALS: RESP 16
[2024-02-06] MEDS: ondansetron HCL 4 MG/2 ML VIAL IVPUSH (18:14)
[2024-02-06] MEDS: 0.9 % Sodium Chloride 1,000 ML 999 ML IV (18:14)
[2024-02-06] MEDS: Morphine Sulfate 4 MG/ML CARTRIDGE IVPUSH (18:14)
[2024-02-06 18:46] VITALS: BP 117/84; PULSE 54; RESP 16; TEMP 36.6; O2SAT 100
[2024-02-06] MEDS: iohexoL 350 MG/ML 100 ML INFUS..BTL IV (19:01)
[2024-02-06] MEDS: Famotidine/PF 20 MG/2 ML VIAL IVPUSH (19:48)
[2024-02-06] MEDS: Magnesium Hydrox/Alum Hydrox 30 ML ORAL.SUSP PO (20:15)
[2024-02-06 20:34] VITALS: BP 117/84; PULSE 54; RESP 16; TEMP 36.6; O2SAT 100
== END 2024-02-06 20:35 | disposition home or self-care (01) ==
PROVIDERS: Nurse Practitioner Family; Emergency Provider Internal Medicine; PCP Family Medicine
DX: K29.70 Gastritis, unspecified, without bleeding (principal); R10.2 Pelvic and perineal pain; R11.2 Nausea with vomiting, unspecified; R79.89 Other specified abnormal findings of blood chemistry; Z79.899 Other long term (current) drug therapy
CPT/HCPCS: 36415; 74177; 80053; 83690; 84478; 85025; 96361; 96374; 96375; 99284; 99285; J2270; J2405; Q9967

== ENCOUNTER 2024-04-03 10:18 | Outpatient (REF) | payer MEDICAID, SELFPAY ==
--- OUTSIDE RECORDS SUMMARY | 2024-04-03 11:11 | XMS_ITS | Encounter Summary ---
Author Organization [employer] Address [address] [facility] [address] [place] [address] Care Team Providers Care Associate Application Developer Name Role Phone Elizabeth Guo DO Primary Care Provider + [phone] Reason for Visit * Reason Onset Date Comments triage 01/27/2022 Encounter Details Date Type Department Care Team ([facility] st Contact Info) Description 01/27/2022 Telephone [facility] MEDICINE [address] [place], [place] [phone] Elizabeth Guo DO [address] [place], [place] [phone] triage Social History Tobacco Use Types Packs/Day Years Used Date Smoking Tobacco: Never Assessed Comments Unknown Sex and Gender Information Value Date Recorded Sex Assigned at Female 12/22/2021 10:27 AM EDT Legal Sex Female 10:27 AM EDT Gender Identity Female 12/22/2021 10:27 AM EDT Sexual Orientation Straight 12/22/2021 10 :27 AM EDT documented as of this encounter Miscellaneous Notes * Telephone Encounter - Sharon Lopez LPN - 01/27/2022 4:[address] to [facility]. Pt confirmed by last name and . Report I want to see my doctor for follow up I feel tired all the time and would like lab work ordered. Denies any other s/sx of acute compromise at this time reports onset of 2 weeks. Protocol Used: Weakness (Generalized) and Fatigue (Adult) Protocol-Based Disposition: See in Office or Video Visit within 2 Weeks Positive Triage Question: * Weakness is a chronic symptom (recurrent or ongoing AND lasting > 4 weeks) * All higher-acuity triage questions were negative Care Advice Discussed: * Reassurance and Education - Mild Weakness * Fever Medicines * Fever Medicines - Extra Notes and Warnings * For All Fevers * Reasons To Call Back * Telephone Encounter - Ping Weeks - 01/27/2022 10:30 AM EST Symptom: Lethargic (Tired) and dizziness Outcome: Schedule an urgent appointment (within 4 hours) or talk to a nurse or provider soon Reason: Getting worse The caller accepted this outcome Pt would like to get labs done documented in this encounter Plan of Treatment Not on file documented as of this encounter Visit Diagnoses Not on filedocumented in this encounter Care Teams Associate Application Developer Relationship Specialty Start Date End Date Elizabeth Guo DO [address] [place] [id number] PCP - General Family Medicine 03/03/21 documented as of this encounter
--- OUTSIDE RECORDS SUMMARY | 2024-04-03 11:11 | XMS_ITS | Encounter Summary ---
Author Organization [employer] Address [address] [facility] [address] [place] [address] Care Team Providers Care Senior Engineering Manager Name Role Phone Elizabeth Gou DO Primary Care Provider + [phone] Encounter Details Date Type Department Care Team ([facility] st Contact Info) Description 02/13/2022 Orders Only [facility] MED[facility]INE [address] [place], [place] [phone] Shanell Ray MD [address] [place], [place] [phone] Iron deficiency (Primary Dx) Social History Tobacco Use Types Packs/Day Years Used Date Smoking Tobacco: Never Passive Smoke Exposure: Never Alcohol Use Standard Drinks/Week Comments Never 0 (1 standard drink = 0.6 oz pur e alcohol) Comments Unknown Sex and Gender Information Value Date Recorded Sex Assigned at Female 12/22/2021 10:27 AM EDT Legal Sex Female 10:27 AM EDT Gender Identity Female 12/22/2021 10:27 AM EDT Sexual Orientation Straight 12/22/2021 10 :27 AM EDT COVID-19 Exposure Response Date Recorded In the last 10 days, have yo u been in contact with someone who was confirmed or suspected to have Coronavirus/COVID-19? No / Unsure 02/11/2022 9:52 AM EST documented as of this encounter Plan of Treatment Not on file documented as of this encounter Visit Diagnoses Diagnosis Iron deficiency- Primary Disorders of iron metabolism documented in this encounter Additional Health Concerns Assessment Noted Time PHQ-9 Depression Total Score: 0 02/12/20 22 10:30 AM EST documented as of this encounter Care Teams Senior Engineering Manager Relationship Specialty Start Date End Date Elizabeth Guo DO [address] [place] [address] PCP - General Family Medicine 03/03/21 documented as of this encounter
--- OUTSIDE RECORDS SUMMARY | 2024-04-03 11:11 | XMS_ITS | Clinical Summary ---
Author Organization [employer] Address [address] [facility] [address] [place] [address] Care Team Providers Care Certified Registered Dental Assistant Name Role Phone Elizabeth Guo DO Primary Care Provider [phone] Allergies Active Allergy Reactions Criticality Noted Date Comments Hydrocodone-Acetaminophen Nausea Only Low 4 Medications baclofen (Lioresal) 10 MG tablet Take 1 tablet by mouth in the morning and 1 tablet at noon and 1 tablet in the evening. 2 Active Diclofenac Sodium 1 % gel apply (2G) by topical route 3 times every day to the affected area(s) 2 Active naproxen (Naprosyn) 500 MG tablet Take 1 tablet by mouth in the morning and 1 tablet in the evening. 2 Active Multiple Vitamins-Iron (Daily Alexander Multivitamin/Iron ) tabletIndications :Iron deficiency One tab po daily 90 tablet 3 2 Active acetaminophen (Tylenol) 500 MG tablet Take 2 tablets (1,000 mg) by mouth every 8 (eight) hours. 30 tablet 3 Active lisinopril 5 MG tabletIndications :Essential hypertension Take 1 tablet (5 mg) by mouth in the morning. 30 tablet 11 3 Active hydroCHLOROthiazi de (HYDRODiuril) 12.5 MG tabletIndications :Hypertension, unspecified type TAKE 1 TABLET BY MOUTH EVERY MORNING 90 tablet 3 4 Active amitriptyline (Elavil) 10 MG tabletIndications :Dyspepsia Take 1 tablet (10 mg) by mouth at bedtime. 30 tablet 4 Active levothyroxine (Synthroid, Levoxyl) 88 MCG tabletIndications :Hypothyroidism, unspecified type TAKE 1 TABLET BY MOUTH EVERY DAY 90 tablet 1 4 Active omeprazole (PriLOSEC) [address] capsule Take 20 mg by mouth 2 times daily. 4 Active losartan (Cozaar) 25 MG tablet Take 25 mg by mouth Once per day. 4 Active ferrous sulfate 325 (65 Fe) MG tablet TAKE 1 TAB (325 MG) ORALLY DAILY FOR 30 DAYS 4 Active Active Problems Problem Noted Date Diagnosed Date History of hepatitis C 08/18/2022 Chronic gastroesophageal reflux disease 03/17/19 Essential hypertension 03/17/2022 Uterine fibroids 01/29/2022 Hyperlipidemia 01/29/2022 Hypothyroidism 01/29/2022 BMI 25.0-25.9,adult 01/29/2022 Resolved Problems Problem Noted Date Diagnosed Date Resolved Date Gastroesophageal reflux disease 01/29/2022 03/17/2022 Encounters Date Type Department Care Team Description 02/14/2024 11:45 AM EST Office Visit [facility] [address] [place] [address] Elizabeth Guo DO Epigastric pain (Primary Dx) 02/14/2024 Travel 02/08/2024 Travel 02/07/2024 Telephone [facility] [address] [place] [address] Elizabeth Guo DO ER Follow-up 02/06/2024 Orders Only GENERIC EXTERNAL DATA DEPARTMENT Provider, Generic External Data 01/25/2024 Outside Procedure [facility] [address] [place] [address] Lennie Dias, OD Presbyopia (Primary Dx) 01/24/2024 9:15 AM EST Office Visit [facility] [address] [place], [place] [phone] Lennie Dias, OD Regular astigmatism of both eyes (Primary Dx) from Last 3 Months Immunizations Name Administration Dates Next Due Hep B, adult 10/08/2016,05/07/2016,04/09/2016 Influenza injectable quadriv alent preservative free 11/17/2018,04/09/2016 Tdap 12/24/2022,02/18/2016,08/03/2013 Family History Medical History Relation Name Comments Breast cancer Mother's Sister 1 Vaginal cancer Mother's Sister 1 Liver cancer Mother's Sister 2 Relation Name Status Comments Mother's Sister 1 Mother's Sister 2 Social History Tobacco Use Types Packs/Day Years Used Date Smoking Tobacco: Never Passive Smoke Exposure: Never Smokeless Tobacco: Never Tobacco Cessation:Counseling Given: Not Answered Alcohol Use Standard Drinks/Week Comments Never 0 (1 standard drink = 0.6 oz pur e alcohol) Depression Answer Date Recorded Patient Health Questionnaire-9 Score 0 03/17/2022 Housing Stability Answer Date Recorded What is your housing situation today? I have ana grace 12/14/[address] you li ve. Do you have problems with any of the following? None of the above 12/14/2022 Food Insecurity Answer Date Recorded Within the past 12 months, y ou worried that your food would run out before you got money to buy more: Never True 12/14/2022 Within the past 12 months,th e food you bought just didn't last and you didn't have enough money to get more: Never True Transportation Answer Date Recorded In the past 12 months, has l ack of transportation kept you from medical appts, meetings, work or from getting things needed for daily living? No 12/14/2022 Utilities Answer Date Recorded In the past 12 months, has t he electric, gas, oil or water company threatened to shut off services in your home? No 12/14/2022 Depression Answer Date Recorded Patient Health Questionnaire-2 Score 0 03/17/2022 Comments No Sex and Gender Information Value Date Recorded Sex Assigned at Female 12/22/2021 10:27 AM EDT Legal Sex Female 10:27 AM EDT Gender Identity Female 12/22/2021 10:27 AM EDT Sexual Orientation Straight 12/22/2021 10 :27 AM EDT Last Filed Vital Signs Vital Sign Reading Time Taken Comments Blood Pressure 115/75 02/14/2024 11:47 AM EST Pulse 67 02/14/2024 11:47 AM EST Temperature 36.2 ??C (97.1 ??F) 02/14/2024 11:[address] Respiratory Rate 20 02/14/2024 11:47 AM EST Oxygen Saturation 100% 08/23/2023 11:11 AM EDT Inhaled Oxygen Concentration - - Weight 65 kg (143 lb 3.2 oz) 02/14/2024 11:47 AM EST Height 160 cm (5' 3 ) 02/14/2024 11:47 AM EST Body Mass Index 25.37 02/14/2024 11:47 AM EST Plan of Treatment Health Maintenance Due Date Last Done Comments CT Colonography 1978 Colonoscopy 1978 Colorectal Cancer Screening 1978 FIT DNA/Cologuard 1978 FIT 1978 FOBT 1978 Sigmoidoscopy 1978 Alcohol/Substance Use Screening 1990 Hepatitis A Vaccines (1 of 2 - Risk 2-dose series) 1997 Depression Screening 03/17/2023 03/17/2022, 03/17/19 SDOH Screening 03/17/2023 03/17/2022 COVID-19 Vaccine ( season) 2023 09/06/2020, 08/16/2020 Influenza Vaccine (#1) 2023 11/17/2018, 2016 Family Planning (PISQ) 08/22/2024 08/23/2023 Pap Smear 09/08/2024 09/08/2021, 01/21/2018 Tobacco Screening 02/13/2025 02/14/2024 Mammogram 10/17/2025 10/18/2023, 09/23, 10/13/2022, Additional history exists Cervical Cancer Screening 09/08/2026 HPV/Cotest 09/08/2026 09/08/2021, 09/09/2016 Lipid Panel 01/27/2028 01/26/2023, 01/23, 03/04/2021, Additional history exists Zoster Vaccines (1 of 2) 2028 DTaP/Tdap/Td Vaccines (4 - Td or Tdap) 12/24/2032 12/24/2022, 02/18/2016, 08/03/2013 RSV Patients and Patients Aged 60 years or older (1 - 1-dose 75+ series) 2053 Hepatitis B Vaccines Completed 10/08/2016, 05/07/2016, 04/09/2016 HIV Screening Completed 01/26/2023, 01/23, 03/04/2021 HIB Vaccines Aged Out No longer eligi ble based on patient's age to complete this topic HPV Vaccines Aged Out No longer eligi ble based on patient's age to complete this topic IPV Vaccines Aged Out No longer eligi ble based on patient's age to complete this topic Meningococcal Vaccine Aged Out No jesus nimesh eligible based on patient's age to complete this topic Pneumococcal Vaccine: Pediatrics (0 to 5 Years) and At-Risk Patients (6 to 49) Years) Aged Out No longer eligible based on patient's age to complete this topic RSV under 20 months Aged Out No longe r eligible based on patient's age to complete this topic Rotavirus Vaccines Aged Out No longer eligible based on patient's age to complete this topic Procedures Procedure Name Priority Date/Time Associated Diagnosis Comments CT ABDOMEN PELVIS W CONTRAST Routine 02/06/2024 7:04 PM EST TRIGLYCERIDES Routine 02/06/2024 2:16 PM EST LIPASE Routine 02/06/2024 2:16 PM EST COMPREHENSIVE METABOLIC PANEL Routine 02/06/2024 2:16 PM EST CBC WITH AUTO DIFFERENTIAL Routine 02/06/2024 2:16 PM EST BI MAMMOGRAM SCREENING TOMOSYNTHESIS BILATERAL Routine 10/18/2023 10:10 AM EDT Breast cancer screening by mammogram HIV 1/2 ANTIGEN/ANTIBODY, FOURTH GENERATION W/RFL Routine 01/26/2023 9:05 AM EST Essential hypertension LIPID PANEL, STANDARD Routine 01/26/2023 9:05 AM EST Essential hypertension THINPREP IMAGING PAP AND HPV MRNA E6/E7, WITH CT/NG, TRICHOMONAS Routine 09/08/2021 9:21 AM EDT from Last 3 Months or Most Recently Relevant to Health Maintenance Results * CT Abdomen Pelvis w/ Contrast (02/06/2024 7:04 PM EST) Anatomical Region Laterality Modality Body, Pelvis, Abdomen Computed T omography 02/06/2024 7:04 PM EST Narrative 02/06/2024 7:28 PM EST ? [facility] ?[address] ?[place] [address] ? CT Scan Report ? Signed ? Patient: Butler Rehman,Felipa ?MR#: MM ?? [id number] ? : 1980 ?Acct:[id number] ? Age/Sex: 43 / F ?ADM Date: 02/06/24 ? Loc: HO.ED ? Attending Dr: ? Ordering Physician: Lito Casey MD ?? Date of Service: 02/06/24 ?? Procedure(s): CT abdomen pelvis w IV con ?? Accession Number(s): [id number] ? cc: Elizabeth Guo DO; Lito Casey MD ? EXAMINATION: ?? CT ABDOMEN AND PELVIS WITH CONTRAST ? CLINICAL INFORMATION: ?? Mid abdominal pain. Elevated lipase. ? COMPARISON: ?? Pelvic ultrasound dated 08/24/2023. ? TECHNIQUE: ?? Multidetector volumetric images were obtained from the superior aspect ?? of the liver through the pubic symphysis following administration 85 mL ?? of Omnipaque 350 intravenous contrast. Sagittal and coronal reformatted ?? images were obtained on the technologist's workstation. ? Oral Contrast: No. ? This CT examination was performed using dose optimization techniques as ?? appropriate, variously including the following: ?? *Automated exposure control. ?? *Adjustment of mA and/or kV according to patient size (this includes ?? techniques or standardized protocols for targeted exams where dose is ?? matched to indication/reason for exam; i.e. extremities or head). ?? *Use of iterative reconstruction technique. ? DLP: ?? 498 mGy-cm ? FINDINGS: ?? LUNG BASES: The visualized lung bases are unremarkable. ? LIVER, GALLBLADDER, AND BILIARY TREE: The liver is normal in size, ?? shape, and attenuation. No focal hepatic lesion or biliary ductal ?? dilatation is present. The gallbladder is unremarkable with no evidence ?? of radiopaque gallstones, gallbladder wall thickening, or obvious ?? pericholecystic inflammatory changes. ? PANCREAS: Unremarkable. ? SPLEEN: Unremarkable. ? ADRENAL GLANDS: Unremarkable. ? KIDNEYS AND URETERS: The kidneys are normal in size, shape, and ?? attenuation. No hydronephrosis, hydroureter, or calculi seen. No ?? perinephric stranding. ? BLADDER: Unremarkable. ? GASTROINTESTINAL TRACT: Small, sliding hiatal hernia. No small or large ?? bowel obstruction. No bowel wall thickening or inflammatory change. ?? Unremarkable appendix. ? PERITONEAL CAVITY: No intra-abdominal free air or free fluid. ? ABDOMINAL WALL: No significant hernia is appreciated. ? LYMPH NODES: No lymphadenopathy. ? VASCULAR: Unremarkable. ? PELVIC VISCERA: Redemonstration of a fibroid uterus. ? OSSEOUS STRUCTURES: No acute osseous abnormality. Vertebral body ?? hemangioma at T12. Lumbarization of the S1 vertebral body. ? CT/CT abdomen pelvis w IV con ?? IMPRESSION: ?? 1. Small, sliding hiatal hernia. No small or large bowel obstruction. ?? No bowel wall thickening or inflammatory change. Unremarkable appendix. ? 2. No intra-abdominal mass, lymphadenopathy, or ascites. ? 3. Fibroid uterus. ? Fleischner guidelines were followed. ? Electronically signed by: ??Marcell Huynh MD ??02/06/2024 07:24 PM EST ?? RP ? Dictated By: ?Marcell Huynh MD ? Signed By: ?<Electronically signed by Marcell Huynh MD in OV> ?02/06/24 192 ? DD/ 1904 ? TD/TT: 02/06/24 190 ? Pheresis Nurse: SR ? Procedure Note Omar, Image - 02/06/2024 [id number] [place] [address] CT Scan Report Signed Patient: Carrie Rehman,[facility]#: [id number] : 1980Acct:[id number] Age/Sex: 43 / FADM Date: 02/06/24 Loc: HO.ED Attending Dr: Ordering Physician: Lito Casey MD Date of Service: 02/06/24 Procedure(s): CT abdomen pelvis w IV con Accession Number(s): [id number] cc: Elizabeth Guo DO; Lito Casey MD EXAMINATION: CT ABDOMEN AND PELVIS WITH CONTRAST CLINICAL INFORMATION: Mid abdominal pain. Elevated lipase. COMPARISON: Pelvic ultrasound dated 08/24/2023. TECHNIQUE: Multidetector volumetric images were obtained from the superior aspect of the liver through the pubic symphysis following administration 85 mL of Omnipaque 350 intravenous contrast. Sagittal and coronal reformatted images were obtained on the technologist's workstation. Oral Contrast: No. This CT examination was performed using dose optimization techniques as appropriate, variously including the following: *Automated exposure control. *Adjustment of mA and/or kV according to patient size (this includes techniques or standardized protocols for targeted exams where dose is matched to indication/reason for exam; i.e. extremities or head). *Use of iterative reconstruction technique. DLP: 498 mGy-cm FINDINGS: LUNG BASES: The visualized lung bases are unremarkable. LIVER, GALLBLADDER, AND BILIARY TREE: The liver is normal in size, shape, and attenuation. No focal hepatic lesion or biliary ductal dilatation is present. The gallbladder is unremarkable with no evidence of radiopaque gallstones, gallbladder wall thickening, or obvious pericholecystic inflammatory changes. PANCREAS: Unremarkable. SPLEEN: Unremarkable. ADRENAL GLANDS: Unremarkable. KIDNEYS AND URETERS: The kidneys are normal in size, shape, and attenuation. No hydronephrosis, hydroureter, or calculi seen. No perinephric stranding. BLADDER: Unremarkable. GASTROINTESTINAL TRACT: Small, sliding hiatal hernia. No small or large bowel obstruction. No bowel wall thickening or inflammatory change. Unremarkable appendix. PERITONEAL CAVITY: No intra-abdominal free air or free fluid. ABDOMINAL WALL: No significant hernia is appreciated. LYMPH NODES: No lymphadenopathy. VASCULAR: Unremarkable. PELVIC VISCERA: Redemonstration of a fibroid uterus. OSSEOUS STRUCTURES: No acute osseous abnormality. Vertebral body hemangioma at T12. Lumbarization of the S1 vertebral body. CT/CT abdomen pelvis w IV con IMPRESSION: 1. Small, sliding hiatal hernia. No small or large bowel obstruction. No bowel wall thickening or inflammatory change. Unremarkable appendix. 2. No intra-abdominal mass, lymphadenopathy, or ascites. 3. Fibroid uterus. Fleischner guidelines were followed. Electronically signed by: Marcell Huynh MD 02/06/2024 07:24 PM EST Dictated By: Marcell Huynh MD Signed By: <Electronically signed by Marcell Huynh MD in OV> 02/06/241923 DD/ 03 TD/TT: 02/06/241903 Pheresis Nurse: [facility] External Provider IMG CT PROCEDURES Edited Result - Final * (ABNORMAL) CBC auto differential (02/06/2024 2:16 PM EST) White Blood Count 7.5 4.8 - 10.8 X10*3/uL [facility] Red Blood Count 4.31 4.20 - 5.50 X10*6/uL [facility] Hemoglobin 12.2 12.0 - 16.0 g/dl [facility] Hematocrit 35.7(L) 37.0 - 47.0 % [facility] Mean Corpuscular Volume 82.8 80.0 - 98.0 fL [facility] Mean Corpuscular Hemoglobin 28.3 27.0 - 33.0 pg [facility] Mean Corpuscular HGB Conc 34.2 31.0 - 35.0 g/dl [facility] Red Cell Distribution Width 16.8(H) 11.0 - 16.0 % [facility] Platelet Count 271 160 - 400 X10*3/uL [facility] Mean Platelet Volume 9.6 9.4 - 12.3 fL [facility] Neutrophils Percent Auto 49.2 45 - 73 % [facility] Imm Gran Pct Auto 0.3 0.0 - 0.4 % [facility] Lymphocytes Percent Auto 35.9 20 - 40 % [facility] Monocytes Percent Auto 11.3(H) 2 - 11 % [facility] Eosinophils Percent Auto 2.1 0 - 4 % [facility] Basophils Percent Auto 1.2 0 - 2 % [facility] NRBC Pct Auto 0.0 0.0 - 0.2 /100WBC [facility] Neutrophils Absolute Auto 3.7 2.0 - 8.3 x10*3/uL [facility] Imm Gran Abs Auto 0.02 0.00 - 0.03 X10*3/uL [facility] Lymphocytes Absolute Auto 2.7 1.2 - 4.9 X10*3/uL [facility] Monocytes Absolute Auto 0.9 0.1 - 1.2 X10*3/uL [facility] Eosinophils Absolute Auto 0.2 0.0 - 0.4 X10*3/uL [facility] Basophils Absolute Auto 0.1 0.0 - 0.2 X10*3/uL [facility] NRBC Abs Auto 0.000 0.0 - 0.012 X10*3/uL [facility] 02/06/2024 2:16 PM EST 02/06/2024 2:18 PM EST us Generic External Data Provider LAB BLOOD ORDERAB LES Final Result Performing Organization Address [facility]/State/ZIP Co de Phone Number [facility] [address] [place], [place] [phone] * (ABNORMAL) Triglycerides (02/06/2024 2:16 PM EST) Triglycerides 270(H) <150 mg/dL [facility] Comment:Desirable Triglyceri de: less than 150 mg/dLBorderline High Triglyceride 150-199 mg/dLHigh Triglyceride: 200-499 mg/dLVery High Triglyceride: greater than or equal to 5OO mg/dL 02/06/2024 2:16 PM EST 02/06/2024 2:18 PM EST us Generic External Data Provider LAB BLOOD ORDERAB LES Final Result Performing Organization Address City/[facility]/ZIP Co de Phone Number [facility] [address] [place] [address] [phone] * (ABNORMAL) Lipase (02/06/2024 2:16 PM EST) Lipase 311(H) 8 - 78 U/L [facility] 02/06/2024 2:16 PM EST 02/06/2024 2:18 PM EST us Generic External Data Provider LAB BLOOD ORDERAB LES Final Result Performing Organization Address [facility]/ZIP Co de Phone Number [facility] [address] [place] [address] [phone] * (ABNORMAL) Comprehensive Metabolic Panel (02/06/2024 2:16 PM EST) Sodium 138 135 - 145 mmol/L [facility] Potassium 4.0 3.3 - 5.1 mmol/L [facility] Chloride 109(H) 96 - 108 mmol/L [facility] Carbon Dioxide 24 22 - 29 mmol/L [facility] Anion Gap 9(L) 12 - 20 [facility] Urea Nitrogen (BUN) 14 9 - 16 mg/dL [facility] Creatinine, Serum 0.82 0.5 - 1.4 mg/dL [facility] Creatinine Clr Calc Pharmacy 77.6 [facility] Comment:Provided height and weight: 160.02 cm,63.3 kg.eGFR (calculated from the MDRD study equation) and eCrCl(calculated from the Cockcroft-Gault equation) are based ondifferent parameters and may not yield comparable results.If eCrCl result is absurd, please check patient'sheight/weight. Estimated Glomerular Filt Rate >60 [facility] Comment:Chronic Kidney Disea se: Estimated GFR < 60 mL/min/1.48a7Heeabt Kidney Disease: Estimated GFR < 15 mL/min/1.73m2 Glucose 91 60 - 115 mg/dL [facility] Calcium 8.6 8.4 - 10.2 mg/dL [facility] Bilirubin, Total 0.2 0.0 - 1.0 mg/dL [facility] Aspartate Amino Transferase 21 5 - 31 U/L [facility] Alanine Aminotransferase 22 0 - 31 U/L [facility] Total Protein 7.6 6.5 - 8.0 g/dL [facility] Albumin Level 4.2 3.5 - 5.0 g/dL [facility] Alkaline Phosphatase 75 39 - 117 U/L [facility] 02/06/2024 2:16 PM EST 02/06/2024 2:18 PM EST us Generic External Data Provider LAB BLOOD ORDERAB LES Final Result Performing Organization Address [facility]/State/[facility] Co de Phone Number [facility] [address] [facility] [place] [address] [phone] * BI Mammogram Screening Tomosynthesis Bilateral (10/18/2023 10:10 AM EDT) Anatomical Region Laterality Modality Breast Bilateral Mammography 10/18/2023 10:1 0 AM EDT Narrative 11/12/2023 10:15 AM EDT ? [facility] [place] ? [address] ?[place] [address] ? Mammography Report ? Signed ? Patient: Butler Rehman,Felipa ?MR#: MM ?? [id number] ? : 1980 ?Acct:[id number] ? Age/Sex: 43 / F ?ADM Date: 08/26/24 ? Loc: HO.MAMMO ? Attending Dr: Becca Fung CNM ? Ordering Physician: BECCA FUNG CNM ?Results: 1 ?? Negative ? Date of Service: 10/18/23 ?Follow Up: 1 Year From Orig ?? inal Mammogram ? Procedure(s): MM tomosynthesis screening BI ?? Accession Number(s): [id number] ? cc: Elizabeth Guo DO; BECCA FUNG CNM ? EXAMINATION: ?? MM SCREENING DIGITAL BREAST TOMOSYNTHESIS, BILATERAL ? CLINICAL INFORMATION: ? Screening. Asymptomatic. ? COMPARISON: ?? Mammography: Available prior examinations. ? TECHNIQUE: ?? Digital breast tomosynthesis is performed in both the craniocaudal and ?? mediolateral oblique views along with computer-aided detection (CAD). ? Synthesized 2D images are generated from the tomosynthesis. ? FINDINGS: ?? The breasts are heterogeneously dense, which may obscure small masses ?? (ACR BI-RADS breast composition Category c). ? There are no significant masses, abnormal calcifications, or other ?? abnormalities. ? MM/MM tomosynthesis screening BI ?? IMPRESSION: ?? No mammographic evidence of malignancy. ? ASSESSMENT: ? BI-RADS BI-RADS 1 - Negative ? RECOMMENDATION: ?? Routine annual mammography screening. ? 1 year F/U ? This examination should not preclude the clinical evaluation of a ?? suspicious palpable abnormality. ? This patient's information was entered into a reminder system with a ?? target due date for their next mammogram. ? Electronically signed by: ??Tanya Alanis DO ??11/12/2023 10:12 AM EDT ?? RP ? Dictated By: ?Tanya Alanis DO ? Signed By: ?<Electronically signed by Tanya Alanis, DO in OV> ? 11/12/23 1012 ? DD/ 1010 ? TD/TT: 10/18/23 1026 ? Pheresis Nurse: ? Procedure Note Donotuseinterpreter, Image - 11/12/2023 [facility] [address] [place], [place] [address] Mammography Report Signed Patient: Haylee Fleming#: [id number] : 1980Acct:[id number] Age/Sex: 43 / FADM Date: 10/18/23 Loc: HO.MAMMO Attending Dr: Becca Fung CNM Ordering Physician: BECCA FUNGesults: 1 Negative Date of Service: 10/18/23Follow Up: 1 Year From Orig inal Mammogram Procedure(s): MM tomosynthesis screening BI Accession Number(s): [id number] cc: Elizabeth Guo DO; BECCA FUNG CNM EXAMINATION: MM SCREENING DIGITAL BREAST TOMOSYNTHESIS, BILATERAL CLINICAL INFORMATION: Screening. Asymptomatic. COMPARISON: Mammography: Available prior examinations. TECHNIQUE: Digital breast tomosynthesis is performed in both the craniocaudal and mediolateral oblique views along with computer-aided detection (CAD). Synthesized 2D images are generated from the tomosynthesis. FINDINGS: The breasts are heterogeneously dense, which may obscure small masses (ACR BI-RADS breast composition Category c). There are no significant masses, abnormal calcifications, or other abnormalities. MM/MM tomosynthesis screening BI IMPRESSION: No mammographic evidence of malignancy. ASSESSMENT: BI-RADS BI-RADS 1 - Negative RECOMMENDATION: Routine annual mammography screening. 1 year F/U This examination should not preclude the clinical evaluation of a suspicious palpable abnormality. This patient's information was entered into a reminder system with a target due date for their next mammogram. Electronically signed by: Tanya Alanis DO 11/12/2023 10:12 AM EDT Dictated By: Tanya Alanis DO Signed By: <Electronically signed by Tanya Alanis DO in OV> 11/12/23 1012 DD/ 1010 TD/TT: 10/18/23 1026 Pheresis Nurse: us Becca Fung [facility] IMG BI PROCEDURES Edited Result - Final * HIV-1/2 Antigen and Antibodies, Fourth Generation, with Reflexes (01/26/2023 9:05 AM EST) HIV AB/AG Nonreactive Nonreactive [facility] Comment:HIV-1 p24 Ag and/or HIV-1/HIV-2 Ab not detected.A test result that is nonreactive does not exclude thepossibility of exposure to or infection with HIV-1 and/orHIV-2. Nonreactive results in this assay for individualswith prior exposure to HIV-1 and/or HIV-2 may be due toantigen and antibody levels that are below the limit ofdetection of this assay.The USDS HIV Ag/Ab Combo assay result andsupplemental assay results should be interpreted inconjunction with the patient's clinical presentation,history and other laboratory results. If the results areinconsistent with clinical evidence, additional testing issuggested to confirm the result. Blood Venous blood specimen / Unknown 01/26/2023 9:05 AM EST 01/26/2023 10:53 AM EST us Elizabeth Guo DO LAB BLOOD ORDERABLES Final R esult [facility] [address] [place] [phone] * (ABNORMAL) Lipid Panel, Standard (01/26/2023 9:05 AM EST) Triglycerides 148 <150 mg/dL [facility] Comment:Desirable Triglyceri de: less than 150 mg/dLBorderline High Triglyceride 150-199 mg/dLHigh Triglyceride: 200-499 mg/dLVery High Triglyceride: greater than or equal to 5OO mg/dL Cholesterol 215(H) <200 mg/dL [facility] Comment:Desirable Cholestero l: less than 200 mg/dLBorderline High Cholesterol: 200-239 mg/dLHigh Cholesterol: greater than 239 mg/dL LDL Cholesterol Calculated 146(H) <100 mg/dL [facility] Comment:Desirable LDL: less than 100 mg/dLNear Optimal/Above Optimal LDL: 110- 129 mg/dLBorderline High LDL: 130-159 mg/dLHigh LDL: 160-189 mg/dLVery High LDL: greater than or equal to 190 mg/dL HDL Cholesterol 40(L) >40 mg/dL [facility] Comment:Desirable HDL: great er than 40 mg/dL Note: This HDL assay may give artificially low results in patients with liver disease. Blood Venous blood specimen / Unknown 01/26/2023 9:05 AM EST 01/26/2023 10:53 AM EST Elizabeth Guo DO LAB BLOOD ORDERABLES Final R esult [facility] [address] [place] [phone] * THINPREP TIS PAP AND HPV mRNA E6/E7, CT/NG, TRICH (09/08/2021 9:21 AM EDT) Chlamydia trachomatis RNA, TMA, Urogenital NOT DETECTED NOT DETECTED [facility] Clinical Information: None given [facility] COMMENT SEE COMMENT [facility] Comment: The analytical performance characteristics of this assay, when used to test SurePath(TM) specimens have been determined by [email or web address]. The modifications have not been cleared or approved by the FDA. This assay has been validated pursuant to the CLIA regulations and is used for clinical purposes. ?? For additional information, please refer to https://education.byUs.com/faq/WTF858 (This link is being provided for information/ educational purposes only.) ?? COMMENT SEE COMMENT [facility] Comment: EXPLANATORY NOTE: ? The Pap is a screening test for cervical cancer. It is ?? not a diagnostic test and is subject to false negative ?? and false positive results. It is most reliable when a ?? satisfactory sample, regularly obtained, is submitted ?? with relevant clinical findings and history, and when ?? the Pap result is evaluated along with historic and ?? current clinical information. ?? COMMENT: This Pap test has been evaluated with computer assisted technology. [facility] Production Checker: SEE COMMENT [facility] Comment: BK,CT(ASCP) CT screening location: [address] HPV nRNA E6/E7 Not Detected Not Detected [facility] Comment: Methodology: Customer Solutions Specialist-Mediated Amplification This assay detects E6/E7 viral messenger RNA (mRNA) from 14 high-risk HPV types (16,18,31,33,35,39,45,51,52,56,58,59,66,68). ? Cervical sources are required for HPV testing. If a vaginal source from a patient who has had a total hysterectomy with removal of cervix was ?? submitted, please contact the testing laboratory for alternative testing options. ?? For additional information, please refer to http://[employer].byUs.com/faq/XSZ918w2 (This link if provided for information/ educational purposes only.) Interpretation/Re sult: Negative for intraepithelial lesion or malignancy. [facility] LMP: NONE GIVEN [facility] Neisseria gonorrhoeae RNA, TMA, Urogenital NOT DETECTED NOT DETECTED [facility] Prev. BX: NONE GIVEN [facility] Prev. PAP: NONE GIVEN [facility] SOURCE: None given [facility] Statement Of Adequacy: SEE COMMENT [facility] Comment: Satisfactory for evaluation. Endocervical/transformation zone component absent. Trichomonas vaginalis, QL, TMA, PAP Vial NOT DETECTED NOT DETECTED [facility] Comment: The analytical performance characteristics of this assay have been determined by [email or web address]. The modifications have not been cleared or approved by the FDA. This assay has been validated pursuant to the CLIA regulations and is used for clinical purposes. ?? For additional information, please refer to http://education.byUs.com/ faq/Trichomonastma (This link is being provided for information/ educational purposes only.) ?? 09/08/2021 9:21 AM EDT us Becca Fung CNM LAB PATHOLOGY ORDERABLES Final Result [facility] [address] from Last 3 Months or Most Recently Relevant to Health Maintenance Insurance C3 Care Teams Certified Registered Dental Assistant Relationship Specialty Start Date End Date Elizabeth Guo DO [address] [place] [phone] PCP - General Family Medicine 03/03/21
--- OUTSIDE RECORDS SUMMARY | 2024-04-03 11:11 | XMS_ITS | Encounter Summary ---
Author Organization [employer] [facility] Address [address] [place] [address] [address] [place] [address] Care Team Providers Care Umbrella Supervisor Name Role Phone Elizabeth Guo DO Primary Care Provider [phone] Encounter Details Date Type Department Care Team (Latest Contact Info) Description 02/01/2019 Abstract [facility] CONVERSIONS Dental, Provider, DDS Social History Tobacco Use Types Packs/Day Years Used Date Smoking Tobacco: Never Assessed Comments Unknown Sex and Gender Information Value Date Recorded Sex Assigned at Female 12/22/2021 10:27 AM EDT Legal Sex Female 10:27 AM EDT Gender Identity Female 12/22/2021 10:27 AM EDT Sexual Orientation Straight 12/22/2021 10 :27 AM EDT documented as of this encounter Plan of Treatment Not on file documented as of this encounter Visit Diagnoses Not on filedocumented in this encounter Care Teams Umbrella Supervisor Relationship Specialty Start Date End Date Elizabeth Guo DO [address] [place] [phone] PCP - General Family Medicine 03/03/21 documented as of this encounter
--- OUTSIDE RECORDS SUMMARY | 2024-04-03 11:12 | XMS_ITS | Encounter Summary ---
Author Organization [employer] Address [address] [facility] [address] [place] [address] Care Team Providers Care Pheresis Nurse Name Role Phone Elizabeth Guo DO Primary Care Provider + [phone] Reason for Visit * Reason Comments Med Refill Encounter Details Date Type Department Care Team ([facility] st Contact Info) Description 07/22/2023 Refill [facility] [address] [place], [place] [phone] Elizabeth Guo DO [address] [place], [place] [phone] Social History Tobacco Use Types Packs/Day Years Used Date Smoking Tobacco: Never Passive Smoke Exposure: Never Smokeless Tobacco: Never Alcohol Use Standard Drinks/Week Comments Never [...] Diagnoses Not on filedocumented in this encounter Additional Health Concerns Assessment Noted Time PHQ-9 Depression Total Score: 0 03/17/19 10:03 AM EST documented as of this encounter Care Teams Pheresis Nurse Relationship Specialty Start Date End Date Elizabeth Guo DO [address] [place] [phone] PCP - General Family Medicine 03/03/21 documented as of this encounter
[2024-04-03 11:13] LABS: Hematocrit 34.3 % (37.0-47.0); Hemoglobin 11.4 g/dl (12.0-16.0); Mean Corpuscular HGB Conc 33.2 g/dl (31.0-35.0); Mean Corpuscular Hemoglobin 28.9 pg (27.0-33.0); Mean Corpuscular Volume 86.8 fL (80.0-98.0); Mean Platelet Volume 10.5 fL (9.4-12.3); Platelet Count 211 X10*3/uL (160-400); Red Blood Count 3.95 X10*6/uL (4.20-5.50); White Blood Count 6.1 X10*3/uL (4.8-10.8)
== END 2024-04-03 10:19 | disposition home or self-care (01) ==
LOC: HO.HHCL 10:18
PROVIDERS: Visit Provider Obstetrics & Gynecology
DX: N93.9 Abnormal uterine and vaginal bleeding, unspecified (principal)
CPT/HCPCS: 36415; 85027

== ENCOUNTER 2024-04-05 09:47 | Outpatient (AMB) | payer MEDICAID, SELFPAY ==
--- NOTE | 2024-04-05 09:48 | MHC.OFFVIS ---
Intake Visit Reasons: medication follow up Service Cleaner Required: Yes Service Cleaner Language: Polymer Specialist Services: Service Cleaner Present (in person) Service Cleaner Name: RITESH Ellis Information Interpreted: non-clinical & clinical Feller Machine Operator: Feller Machine Operator Present Accompanied by: Self / Same As Patient Allergies hydrocodone Allergy (Mild, Verified 04/05/24 09:49) Nausea HPI Comments Details: Presenting for three-month follow-up. The patient has been using Lysteda 2 tablets p.o. t.i.d. 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 H&H in 12/15 was 10/31.1, repeated in 04/18 came up to 11.4/34.3 PFSH Medical History Pre-op examination Bartholin cyst Relies on tubal ligation as primary control method Cough due to MICHEAL inhibitor Cough Potential exposure to STD Well woman exam with routine gynecological exam Hypothyroid Surgical History History of esophagogastroduodenoscopy (EGD) History of abdominoplasty Family History Father HTN (hypertension) Mother HTN (hypertension) Paternal Grandmother Heart attack Social History Household Members: Children Housing: House Alcohol intake: current Alcohol intake frequency: holidays/special occasions only Patient Tobacco Use Status: Never used Tobacco Current occupational status: employed Current occupation: [employer] Sexual orientation: Straight/Heterosexual Gender identity: Female Female Reproductive History Menstrual Age of Menarche: 14 Review of Systems Const All systems reviewed & are unremarkable except as noted in HPI and below Reports as per HPI and Reports no additional complaints GI Reports no additional complaints Reports no additional complaints Assessment & Plan Assessment & Plan (1) Abnormal uterine bleeding (AUB): Comment: with anemia Code(s): N93.9 - Abnormal uterine and vaginal bleeding, unspecified Category: Medical Plan: Recommended continue iron sulfate 325 mg p.o. q.d. repeat CBC in 3 months, continue Lysteda 650 mg 2 tablets p.o. t.i.d. from day 3-5. Instructions given to patient to schedule a 3 month follow-up and to call in case of heavy vaginal bleeding and or pain. All questions answered the patient verbalized understanding Orders: Orders Complete Blood Count no Diff Today N93.9 - Abnormal uterine and vaginal bleeding, unspecified Medications: Refilled tranexamic acid Start 1st day of menses and take it up to 3-5 days of menses. 1,300 mg (2 x 650 mg) PO TID 5 days 30 tabs 2RF Coding Level of Care Code Est Pt Level 3 (88753) Diagnoses Abnormal uterine bleeding (AUB) N93.9
--- OUTSIDE RECORDS SUMMARY | 2024-04-05 11:18 | XMS_ITS | Encounter Summary ---
Author Organization [employer] Address [address] [facility] [address] [place] [address] Care Team Providers Care Tea Bag Packer Name Role Phone Elizabeth Guo DO Primary Care Provider + [phone] Reason for Visit * Reason Onset Date Comments triage 01/27/2022 Encounter Details Date Type Department Care Team ([facility] st Contact Info) Description 01/27/2022 Telephone [facility] [address] [place], [place] [phone] Elizabeth Guo DO [address] [place], [place] [phone] triage Social History Tobacco Use Types Packs/Day [...] Miscellaneous Notes * Telephone Encounter - Sharon JADON Lopez - 01/27/2022 4:[address] [...] on filedocumented in this encounter Care Teams Tea Bag Packer Relationship Specialty Start Date End Date Elizabeth Guo DO [address] [place] [phone] PCP - General Family Medicine 03/03/21 documented as of this encounter
--- OUTSIDE RECORDS SUMMARY | 2024-04-05 11:18 | XMS_ITS | Encounter Summary ---
Author Organization [employer] [facility] Address [address] [place] [address] [address] [place] [address] Care Team Providers Care Break Out Man Name Role Phone Elizabeth Guo DO Primary Care Provider [phone] Encounter Details Date Type Department Care Team (Latest Contact Info) Description 02/01/2019 Abstract [facility] CONVERSIONS Dental, Provider, DDS Social History [...] on filedocumented in this encounter Care Teams Break Out Man Relationship Specialty Start Date End Date Elizabeth Guo DO [address] [place] [phone] PCP - General Family Medicine 03/03/21 documented as of this encounter
--- OUTSIDE RECORDS SUMMARY | 2024-04-05 11:18 | XMS_ITS | Clinical Summary ---
Author Organization [employer] Address [address] [facility] 7t [place] [address] Care Team Providers Care Sprinkler Truck Driver Name Role Phone Elizabeth Guo DO Primary Care Provider [phone] Allergies Active Allergy Reactions Criticality Noted Date [...] Description 02/14/2024 11:45 AM EST Office Visit [facility] [address] [place] [address] Elizabeth Guo DO Epigastric pain (Primary Dx) 02/14/2024 Travel 02/08/2024 Travel 02/07/2024 Telephone [facility] [address] [place] [address] Elizabeth Guo DO ER Follow-up 02/06/2024 Orders Only GENERIC EXTERNAL DATA DEPARTMENT Provider, Generic External Data 01/25/2024 Outside Procedure [facility] OPTOMETRY [address] [place] [address] Lennie Dias, OD Presbyopia (Primary Dx) 01/24/2024 9:15 AM EST Office Visit [facility] OPTOMETRY [address] [place], [place] [phone] Lennie Dias, OD Regular astigmatism of both [...] EST Narrative 02/06/2024 7:28 PM EST ? [facility] ?[address] ?[place] [address] ? CT Scan Report ? Signed ? Patient: Butler Rehman,Felipa ?MR#: MM ?? [id number] ? : 1980 ?Acct:[id number] ? Age/Sex: 43 / F ?ADM Date: 02/06/24 ? Loc: HO.ED ? Attending Dr: ? Ordering Physician: Lito Casey MD ?? Date of Service: 02/06/24 ?? Procedure(s): CT abdomen pelvis w IV con ?? Accession Number(s): [id number] ? cc: Elizabeth Guo DO; Lito Casey [...] DD/ 1904 ? TD/TT: 02/06/24 190 ? Casting Operator Helper: SR ? Procedure Note Omar, Image - 02/06/2024 [id number] [place] [address] CT Scan Report Signed Patient: Carrie Rehman,[facility]#: [id number] : 1980Acct:[id number] Age/Sex: 43 / FADM Date: 02/06/24 Loc: HO.ED Attending Dr: Ordering Physician: Lito Casey MD Date of Service: 02/06/24 Procedure(s): CT abdomen pelvis w IV con Accession Number(s): [id number] cc: Elizabeth Guo DO; Lito Casey MD [...] in OV> 02/06/241923 DD/ 03 TD/TT: 02/06/241903 Casting Operator Helper: [facility] External Provider IMG CT PROCEDURES Edited Result - Final * (ABNORMAL) CBC auto differential (02/06/2024 2:16 PM EST) White Blood Count 7.5 4.8 - 10.8 X10*3/uL [facility] Red Blood Count 4.31 4.20 - 5.50 X10*6/uL [facility] Hemoglobin 12.2 12.0 - 16.0 g/dl [facility] Hematocrit 35.7(L) 37.0 - 47.0 % [facility] Mean Corpuscular Volume 82.8 80.0 - 98.0 fL [facility] Mean Corpuscular Hemoglobin 28.3 27.0 - 33.0 pg [facility] Mean Corpuscular HGB Conc 34.2 31.0 - 35.0 g/dl [facility] Red Cell Distribution Width 16.8(H) 11.0 - 16.0 % [facility] Platelet Count 271 160 - 400 X10*3/uL [facility] Mean Platelet Volume 9.6 9.4 - 12.3 fL [facility] Neutrophils Percent Auto 49.2 45 - 73 % [facility] Imm Gran Pct Auto 0.3 0.0 - 0.4 % [facility] Lymphocytes Percent Auto 35.9 20 - 40 % [facility] Monocytes Percent Auto 11.3(H) 2 - 11 % [facility] Eosinophils Percent Auto 2.1 0 - 4 % [facility] Basophils Percent Auto 1.2 0 - 2 % [facility] NRBC Pct Auto 0.0 0.0 - 0.2 /100WBC [facility] Neutrophils Absolute Auto 3.7 2.0 - 8.3 x10*3/uL [facility] Imm Gran Abs Auto 0.02 0.00 - 0.03 X10*3/uL [facility] Lymphocytes Absolute Auto 2.7 1.2 - 4.9 X10*3/uL [facility] Monocytes Absolute Auto 0.9 0.1 - 1.2 X10*3/uL [facility] Eosinophils Absolute Auto 0.2 0.0 - 0.4 X10*3/uL [facility] Basophils Absolute Auto 0.1 0.0 - 0.2 X10*3/uL [facility] NRBC Abs Auto 0.000 0.0 - 0.012 X10*3/uL [facility] 02/06/2024 2:16 PM EST 02/06/2024 2:18 PM EST us Generic External Data Provider LAB BLOOD ORDERAB LES Final Result Performing Organization Address [facility]/State/ZIP Co de Phone Number [facility] [address] [place], [place] [phone] * (ABNORMAL) Triglycerides (02/06/2024 2:16 PM EST) Triglycerides 270(H) <150 mg/dL [facility] Comment:Desirable Triglyceri de: less than 150 mg/dLBorderline High Triglyceride 150-199 mg/dLHigh Triglyceride: 200-499 mg/dLVery High Triglyceride: greater than or equal to 5OO mg/dL 02/06/2024 2:16 PM EST 02/06/2024 2:18 PM EST us Generic External Data Provider LAB BLOOD ORDERAB LES Final Result Performing Organization Address City/[facility]/ZIP Co de Phone Number [facility] [address] [place] [address] [phone] * (ABNORMAL) Lipase (02/06/2024 2:16 PM EST) Lipase 311(H) 8 - 78 U/L [facility] 02/06/2024 2:16 PM EST 02/06/2024 2:18 PM EST us Generic External Data Provider LAB BLOOD ORDERAB LES Final Result Performing Organization Address [facility]/ZIP Co de Phone Number [facility] [address] [place] [address] [phone] * (ABNORMAL) Comprehensive Metabolic Panel (02/06/2024 2:16 PM EST) Sodium 138 135 - 145 mmol/L [facility] Potassium 4.0 3.3 - 5.1 mmol/L [facility] Chloride 109(H) 96 - 108 mmol/L [facility] Carbon Dioxide 24 22 - 29 mmol/L [facility] Anion Gap 9(L) 12 - 20 [facility] Urea Nitrogen (BUN) 14 9 - 16 mg/dL [facility] Creatinine, Serum 0.82 0.5 - 1.4 mg/dL [facility] Creatinine Clr Calc Pharmacy 77.6 [facility] Comment:Provided height and weight: 160.02 cm,63.3 kg.eGFR (calculated from the MDRD study equation) and eCrCl(calculated from the Cockcroft-Gault equation) are based ondifferent parameters and may not yield comparable results.If eCrCl result is absurd, please check patient'sheight/weight. Estimated Glomerular Filt Rate >60 [facility] Comment:Chronic Kidney Disea se: Estimated GFR < 60 mL/min/1.69n4Rzuczv Kidney Disease: Estimated GFR < 15 mL/min/1.73m2 Glucose 91 60 - 115 mg/dL [facility] Calcium 8.6 8.4 - 10.2 mg/dL [facility] Bilirubin, Total 0.2 0.0 - 1.0 mg/dL [facility] Aspartate Amino Transferase 21 5 - 31 U/L [facility] Alanine Aminotransferase 22 0 - 31 U/L [facility] Total Protein 7.6 6.5 - 8.0 g/dL [facility] Albumin Level 4.2 3.5 - 5.0 g/dL [facility] Alkaline Phosphatase 75 39 - 117 U/L [facility] 02/06/2024 2:16 PM EST 02/06/2024 2:18 PM EST us Generic External Data Provider LAB BLOOD ORDERAB LES Final Result Performing Organization Address [facility]/State/[facility] Co de Phone Number [facility] [address] [facility] [place] [address] [phone] * BI Mammogram Screening Tomosynthesis Bilateral (10/18/2023 10:10 AM EDT) Anatomical Region Laterality Modality Breast Bilateral Mammography 10/18/2023 10:1 0 AM EDT Narrative 11/12/2023 10:15 AM EDT ? [facility] [place] ? [address] ?[place] [address] ? Mammography Report ? Signed ? Patient: Butler Rehman,Felipa ?MR#: MM ?? [id number] ? : 1980 ?Acct:[id number] ? Age/Sex: 43 / F ?ADM Date: 08/26/24 ? Loc: HO.MAMMO ? Attending Dr: Becca Fung CNM ? Ordering Physician: BECCA FUNG CNM ?Results: 1 ?? Negative ? Date of Service: 10/18/23 ?Follow Up: 1 Year From Orig ?? inal Mammogram ? Procedure(s): MM tomosynthesis screening BI ?? Accession Number(s): [id number] ? cc: Elizabeth Guo DO; BECCA FUNG [...] DD/ 1010 ? TD/TT: 10/18/23 1026 ? Casting Operator Helper: ? Procedure Note Donotuseinterpreter, Image - 11/12/2023 [facility] [address] [place], [place] [address] Mammography Report Signed Patient: Haylee Fleming#: [id number] : 1980Acct:[id number] Age/Sex: 43 / FADM Date: 10/18/23 Loc: HO.MAMMO Attending Dr: Becca Fung CNM Ordering Physician: BECCA FUNGesults: 1 Negative Date of Service: 10/18/23Follow Up: 1 Year From Orig inal Mammogram Procedure(s): MM tomosynthesis screening BI Accession Number(s): [id number] cc: Elizabeth Guo DO; BECCA FUNG CNM [...] 11/12/23 1012 DD/ 1010 TD/TT: 10/18/23 1026 Casting Operator Helper: us Becca Fung [facility] IMG BI PROCEDURES Edited Result - Final * HIV-1/2 Antigen and Antibodies, Fourth Generation, with Reflexes (01/26/2023 9:05 AM EST) HIV AB/AG Nonreactive Nonreactive [facility] Comment:HIV-1 p24 Ag and/or HIV-1/HIV-2 Ab not detected.A test result that is nonreactive does not exclude thepossibility of exposure to or infection with HIV-1 and/orHIV-2. Nonreactive results in this assay for individualswith prior exposure to HIV-1 and/or HIV-2 may be due toantigen and antibody levels that are below the limit ofdetection of this assay.The [employer] HIV Ag/Ab Combo assay result andsupplemental assay results should be interpreted inconjunction with the patient's clinical presentation,history and other laboratory results. If the results areinconsistent with clinical evidence, additional testing issuggested to confirm the result. Blood Venous blood specimen / Unknown 01/26/2023 9:05 AM EST 01/26/2023 10:53 AM EST us Elizabeth Guo DO LAB BLOOD ORDERABLES Final R esult [facility] [address] [place] [phone] * (ABNORMAL) Lipid Panel, Standard (01/26/2023 9:05 AM EST) Triglycerides 148 <150 mg/dL [facility] Comment:Desirable Triglyceri de: less than 150 mg/dLBorderline High Triglyceride 150-199 mg/dLHigh Triglyceride: 200-499 mg/dLVery High Triglyceride: greater than or equal to 5OO mg/dL Cholesterol 215(H) <200 mg/dL [facility] Comment:Desirable Cholestero l: less than 200 mg/dLBorderline High Cholesterol: 200-239 mg/dLHigh Cholesterol: greater than 239 mg/dL LDL Cholesterol Calculated 146(H) <100 mg/dL [facility] Comment:Desirable LDL: less than 100 mg/dLNear Optimal/Above Optimal LDL: 110- 129 mg/dLBorderline High LDL: 130-159 mg/dLHigh LDL: 160-189 mg/dLVery High LDL: greater than or equal to 190 mg/dL HDL Cholesterol 40(L) >40 mg/dL [facility] Comment:Desirable HDL: great er than 40 mg/dL Note: This HDL assay may give artificially low results in patients with liver disease. Blood Venous blood specimen / Unknown 01/26/2023 9:05 AM EST 01/26/2023 10:53 AM EST Elizabeth Guo DO LAB BLOOD ORDERABLES Final R esult [facility] [address] [place] [phone] * THINPREP TIS PAP AND HPV mRNA E6/E7, CT/NG, TRICH (09/08/2021 9:21 AM EDT) Chlamydia trachomatis RNA, TMA, Urogenital NOT DETECTED NOT DETECTED [facility] Clinical Information: None given [facility] COMMENT SEE COMMENT [facility] Comment: The analytical performance characteristics of this assay, when used to test SurePath(TM) specimens have been determined by [employer]. The modifications have not been cleared or approved by the FDA. This assay has been validated pursuant to the CLIA regulations and is used for clinical purposes. ?? For additional information, please refer to https://education.[employer]/faq/XLS316 (This link is being provided for information/ [...] with computer assisted technology. [facility] Training And Development Officer: SEE COMMENT [facility] Comment: BK,CT(ASCP) CT screening location: [address] HPV nRNA E6/E7 Not Detected Not Detected [facility] Comment: Methodology: Gasoline Attendant-Mediated Amplification This assay detects E6/E7 viral messenger RNA (mRNA) from 14 high-risk HPV types (16,18,31,33,35,39,45,51,52,56,58,59,66,68). ? Cervical sources are required for HPV testing. If a vaginal source from a patient who has had a total hysterectomy with removal of cervix was ?? submitted, please contact the testing laboratory for alternative testing options. ?? For additional information, please refer to http://[employer]/faq/LQV105q8 (This link if provided for information/ educational purposes only.) Interpretation/Re sult: Negative for intraepithelial lesion or malignancy. [facility] LMP: NONE GIVEN [facility] N [...] of this assay have been determined by [employer]. The modifications have not been cleared or approved by the FDA. This assay has been validated pursuant to the CLIA regulations and is used for clinical purposes. ?? For additional information, please refer to http://education.[employer]/ faq/Trichomonastma (This link is being provided for information/ educational purposes only.) ?? 09/08/2021 9:21 AM EDT us Becca Fung CNM LAB PATHOLOGY ORDERABLES Final Result [facility] [address] from Last 3 Months or Most Recently Relevant to Health Maintenance Insurance C3 Care Teams Sprinkler Truck Driver Relationship Specialty Start Date End Date Elizabeth Guo DO [address] [place] [phone] PCP - General Family Medicine 03/03/21
--- OUTSIDE RECORDS SUMMARY | 2024-04-05 11:18 | XMS_ITS | Encounter Summary ---
Author Organization [employer] Address [address] [facility] [address] [place] [address] Care Team Providers Care Inventory Worker Name Role Phone Elizabeth Guo DO Primary Care Provider [phone] Encounter Details Date Type Department Care Team ([facility] st Contact Info) Description 02/13/2022 Orders Only [facility] [address] [place], [place] [phone] Shanell Ray MD [address] [place], [place] [phone] Iron deficiency (Primary Dx) Social History Tobacco [...] documented as of this encounter Care Teams Inventory Worker Relationship Specialty Start Date End Date Elizabeth Guo DO [address] [place] [address] PCP - General Family Medicine 03/03/21 documented as of this encounter
--- OUTSIDE RECORDS SUMMARY | 2024-04-05 11:19 | XMS_ITS | Encounter Summary ---
Author Organization [employer] Address [address] [facility] [address] [place] [address] Care Team Providers Care Graduating Machine Operator Name Role Phone Elizabeth Guo DO Primary Care Provider [phone] Reason for Visit * Reason Comments Med Refill Encounter Details Date Type Department Care Team ([facility] st Contact Info) Description 07/22/2023 Refill [facility] [address] [place], [place] [phone] Elizabeth Guo DO [address] [place], [place] [phone] Social History Tobacco Use Types Packs/Day Years [...] documented as of this encounter Care Teams Graduating Machine Operator Relationship Specialty Start Date End Date Elizabeth Guo DO [address] [place] [phone] PCP - General Family Medicine 03/03/21 documented as of this encounter
== END 2024-04-05 10:16 | disposition home or self-care (01) ==
LOC: HO.HWS 09:47
PROVIDERS: PCP Family Medicine; Visit Provider Obstetrics & Gynecology
DX: N93.9 Abnormal uterine and vaginal bleeding, unspecified (principal)
CPT/HCPCS: 99213

== ENCOUNTER → 2024-04-05 09:47 | Outpatient (BNVA) | payer MEDICAID, SELFPAY | PROVIDERS: PCP Family Medicine; Visit Provider Obstetrics & Gynecology | DX: N93.9 Abnormal uterine and vaginal bleeding, unspecified (principal) | CPT/HCPCS: 99212 ==

== ENCOUNTER 2024-07-04 09:52 | Outpatient (AMB) | payer MEDICAID, SELFPAY ==
--- NOTE | 2024-07-04 09:54 | MHC.OFFVIS ---
Vital Signs 07/04/24 09:55 Height 5 ft 3 in Weight 146 lb 6.191 oz BMI 25.9 BP 129/72 Blood Pressure Location Lt brachial Position Sitting Pulse 73 Pulse Source Pulse Oximeter Pulse Oximetry (%) 98 Oxygen Delivery Method Room Air Intake Visit Reasons: 6 month follow up Intake Note: Pt presents to the office today for a 6 month follow up. Pt denies any concerns at this time. Allergies hydrocodone Allergy (Mild, Verified 07/04/24 09:54) Nausea HPI HPI 6 month follow up: Details: Assessment & Plan (1) GERD (gastroesophageal reflux disease): Code(s): K21.9 - Gastro-esophageal reflux disease without esophagitis Category: Medical Qualifiers: Esophagitis bleeding: without hemorrhage Esophagitis presence: with esophagitis Qualified Code(s): K21.00 - Gastro-esophageal reflux disease with esophagitis, without bleeding (2) Pre-op examination: Code(s): Z01.818 - Encounter for other preprocedural examination Category: Medical (3) Family history of polyps in the colon: Code(s): Z83.719 - Family history of colon polyps, unspecified Category: Medical Plan Mal[place]ian #Felipa Live She has a lot of HB if I don't take the medicines, but it goes away with the medicines. She is encouraged to continue her omeprazole as it is fairly low dose. She saw the pulm, and they changed her BP pill (MICHEAL!) and after this she felt much better. She denies any cardiac or respiratory problems. NO ID problems There are no prior problems with anesthesia or sedation. No known FHX crc or polyps - but her brother had something found on a scope last year in [place]. (then she says it was a polyp) Return office visit in 6 months and after her colonoscopy. Orders: Orders Colonoscopy - GI Use Only 01/04/24 Z01.818 - Encounter for other preprocedural examination Medications: New bisacodyl (Dulcolax (bisacodyl)) 10 mg (2 x 5 mg) PO BEDTIME 4 tabs 0RF 2 days polyethylene glycol 3350 (Miralax) 238 grams PO ONCE 238 grams 0RF colonoscopy prep 1 day COLONOSCOPY BIOSPY TODAYS VISIT Teresa Sheppard She says that she was called for he colonoscopy, but they gave her a really early appt and this does not work for her r/t she has to take the children to school. She continues to do well on her omeprazole. She had an episode of pain when she ate chicken soup and swallowed a bone and she presented to the ER. She was given a temporary RX of sucralfate and it resolved. She asks me to check her thyroid on PE. It seems normal. ROV 6 mos. PFS Medical History Pre-op examination Bartholin cyst Relies on tubal ligation as primary control method Cough due to MICHEAL inhibitor Cough Potential exposure to STD Well woman exam with routine gynecological exam Hypothyroid Surgical History History of esophagogastroduodenoscopy (EGD) History of abdominoplasty Family History Father HTN (hypertension) Mother HTN (hypertension) Paternal Grandmother Heart attack Social History Household Members: Children Housing: House Alcohol intake: current Alcohol intake frequency: holidays/special occasions only Patient Tobacco Use Status: Never used Tobacco Current occupational status: employed Current occupation: [employer] Sexual orientation: Straight/Heterosexual Gender identity: Female Female Reproductive History Menstrual Age of Menarche: 14 Review of Systems Const Denies fatigue, Denies fever(s), Denies night sweats, Denies poor appetite and Denies weight loss ENT Reports Normal hearing present, Denies dental pain, Denies dysphagia, Denies hearing loss, Denies mouth pain, Denies odynophagia, Denies throat swelling, Denies tongue swelling and Reports other (Dentition adequate) Card Reports no additional complaints Resp Reports no additional complaints GI Details: Denies abdominal pain, Denies melena, Denies bloating, Denies hematochezia, Denies constipation, Denies GI cramping, Denies dysphagia, Denies excessive flatus, Denies early satiety, Reports heartburn, Denies diarrhea, Denies nausea, Denies odynophagia, Denies vomiting and Denies hematemesis Skin/Breast Denies pruritus, Denies lesions, Denies rash and Denies jaundice Neuro Reports Normal hearing present and Denies Abnormal speech present Endo Denies fatigue Aller/Immun Denies throat swelling and Denies tongue swelling Physical Exam Vital Signs: Last Vital Signs Pulse 73 07/04/24 09:55 BP 129/72 07/04/24 09:55 Pulse Ox 98 07/04/24 09:55 Oxygen Delivery Method Room Air 07/04/24 09:55 BMI result Body Mass Index 25.9 Const General: cooperative, no acute distress, well developed and well groomed Nutritional Appearance: average body habitus and well nourished Orientation/consciousness: oriented to person, oriented to place and oriented to time Limitations: language barrier HEENT Head: Yes normocephalic and Yes atraumatic Eyes General: appearance normal, both eyes and all related structures Pupils: Equal, round and reactive pupils present Neck Neck: Yes normal visual inspection and Yes no lymphadenopathy Thyroid: Thyroid normal Resp Effort & Inspection: normal respiratory effort and able to speak in complete sentences Auscultation: clear to auscultation bilaterally Cardio Rate: regular rate Rhythm: regular rhythm Heart sounds: Normal, physiologic split S2 sound present Peripheral pulses: radial pulses present and posterior tibial pulses present GI Inspection: No distended and No Abdominal panniculus present Palpation (GI): Soft to palpation, nontender, no guarding, not rigid and No hepatosplenomegaly present Percussion: Yes normal to percussion Auscultation: normal bowel sounds Rectal Exam - Female: deferred Skin General skin exam: no rashes or lesions noted, turgor normal, skin not dry, no jaundice, No spider nevi and no striae Rashes: no rashes Nails: normal Neuro General: oriented to person, oriented to place and oriented to time Cranial nerves: Yes Equal, round and reactive pupils present and Yes Normal hearing present Speech: No Abnormal speech present Extrem General: Yes normal to inspection, No clubbing, No cyanosis and No edema Psych Appearance: grossly normal and well kempt Mental Status: mental status grossly normal Speech and movement: Normal speech and movement present Affect: normal affect Attitude: cooperative Thought process: Normal thought process present and not confabulating Thought content: Normal thought content present Insight: Fair insight present (Psych) Judgement: Fair judgement present (Psych) Assessment & Plan Assessment & Plan (1) Family history of polyps in the colon: Code(s): Z83.719 - Family history of colon polyps, unspecified Category: Medical (2) GERD (gastroesophageal reflux disease): Code(s): K21.9 - Gastro-esophageal reflux disease without esophagitis Category: Medical Qualifiers: Esophagitis presence: with esophagitis Esophagitis bleeding: without hemorrhage Qualified Code(s): K21.00 - Gastro-esophageal reflux disease with esophagitis, without bleeding Plan Mal[place]ian #Abiola Silver She says that she was called for he colonoscopy, but they gave her a really early appt and this does not work for her r/t she has to take the children to school. She continues to do well on her omeprazole. She had an episode of pain when she ate chicken soup and swallowed a bone and she presented to the ER. She was given a temporary RX of sucralfate and it resolved. She asks me to check her thyroid on PE. It seems normal. ROV 6 mos. Medications: Refilled omeprazole 20 mg PO BID 60 caps 6RF K21.9 - Gastro-esophageal reflux disease without esophagitis Discontinued sucralfate Discontinued Reason: Patient Completed Course 1 g PO TID 90 tabs 0RF Coding Level of Care Code Est Pt Level 3 (79963) Diagnoses Family history of polyps in the colon Z83.719 Gastroesophageal reflux disease with esophagitis without hemorrhage K21.00 Esophagitis presence: with esophagitis Esophagitis bleeding: without hemorrhage
[2024-07-04 09:55] VITALS: BP 129/72; PULSE 73; O2SAT 98; BMI 25.9
--- OUTSIDE RECORDS SUMMARY | 2024-07-04 10:43 | XMS_ITS | Encounter Summary ---
Author Organization [employer] Address 75 [facility] [address] [place] [address] Care Team Providers Care Service Control Operator Name Role Phone Elizabeth Guo DO Primary Care Provider + [phone] Reason for Visit * Reason Onset Date Comments triage 01/27/2022 Encounter Details Date Type Department Care Team (Late st Contact Info) Description 01/27/2022 Telephone [facility] [address] [place], [place] [phone] Elizabeth Guo DO [address] [place], [place] [phone] triage Social History Tobacco Use Types Packs/Day [...] documented in this encounter Plan of Treatment Upcoming Encounters Date Type Department Care Team (Late st Contact Info) Description 08/22/2024 10:00 AM EDT Office Visit [facility] [address] [place] [address] Ligia Bravo CNM [address] [place] [address] documented as of this encounter Visit Diagnoses Not on filedocumented in this encounter Care Teams Service Control Operator Relationship Specialty Start Date End Date Elizabeth Guo DO [address] [place] [address] PCP - General Family Medicine 03/03/21 documented as of this encounter
--- OUTSIDE RECORDS SUMMARY | 2024-07-04 10:43 | XMS_ITS | Encounter Summary ---
Author Organization [employer] Address 75 [facility] [address] [place] [address] Care Team Providers Care Stripe Matcher Name Role Phone Elizabeth Guo DO Primary Care Provider [phone] Encounter Details Date Type Department Care Team (Latest Contact Info) Description 02/01/2019 Abstract [facility]VERSION[facility] Dental, Provider, DDS Social History Tobacco Use Types Packs/Day Years Used Date Smoking Tobacco: Never Assessed Comments Unknown Sex and Gender Information Value Date Recorded Sex Assigned at Female 12/22/2021 10:27 AM EDT Legal Sex Female 10:27 AM EDT Gender Identity Female 12/22/2021 10:27 AM EDT Sexual Orientation Straight 12/22/2021 10 :27 AM EDT documented as of this encounter Plan of Treatment Upcoming Encounters Date Type Department Care Team (Late st Contact Info) Description 08/22/2024 10:00 AM EDT Office Visit [facility] [address] [place] [address] Ligia Bravo CNM [address] [place] [address] documented as of this encounter Visit Diagnoses Not on filedocumented in this encounter Care Teams Stripe Matcher Relationship Specialty Start Date End Date Elizabeth Guo DO [address] [place] [address] PCP - General Family Medicine 03/03/21 documented as of this encounter
--- OUTSIDE RECORDS SUMMARY | 2024-07-04 10:43 | XMS_ITS | Encounter Summary ---
Author Organization [employer] Address 75 [facility] [address] [place] [address] Care Team Providers Care Cell Support Operator Name Role Phone Nahed Guofer Primary Care Provider + [phone] Encounter Details Date Type Department Care Team (Late st Contact Info) Description 02/13/2022 Orders Only [facility] [address] [place] [address] [phone] Shanell Ray MD [address] [place], [place] [phone] Iron deficiency (Primary Dx) Social History Tobacco [...] Description 08/22/2024 10:00 AM EDT Office Visit [facility] [address] [place] [phone] Ligia Bravo CNM [address] [place] [address] documented as of this encounter Visit Diagnoses Diagnosis Iron deficiency- Primary Disorders of iron metabolism documented in this encounter Additional Health Concerns Assessment Noted Time PHQ-9 Depression Total Score: 0 02/12/20 10:30 AM EST documented as of this encounter Care Teams Cell Support Operator Relationship Specialty Start Date End Date Elizabeth Guo DO [address] [place] [address] PCP - General Family Medicine 03/03/21 documented as of this encounter
--- OUTSIDE RECORDS SUMMARY | 2024-07-04 10:43 | XMS_ITS | Clinical Summary ---
Author Organization [employer] Address 75 [facility] [address] [place] [address] Care Team Providers Care Fish Farm Laborer Name Role Phone Sari Elizabeth Primary Care Provider + [phone] Allergies Active Allergy Reactions Criticality Noted Date [...] 8 (eight) hours. 30 tablet 3 Active omeprazole (PriLOSEC) [address] capsule Take 20 mg by mouth 2 times daily. 4 Active ferrous sulfate 325 (65 Fe) MG tablet TAKE 1 TAB (325 MG) ORALLY DAILY FOR 30 DAYS 4 Active hydroCHLOROthiazi de 12.5 MG tabletIndications :Hypertension, unspecified type Take 1 tablet (12.5 mg) by mouth in the morning. 90 tablet 3 5 Active lisinopril 5 MG tabletIndications :Essential hypertension Take 1 tablet (5 mg) by mouth Once per day. 90 tablet 3 5 04/20/19 26 Active amitriptyline (Elavil) 10 MG tabletIndications :Dyspepsia Take 1 tablet (10 mg) by mouth at bedtime. 30 tablet 5 Active levothyroxine (Synthroid, Levoxyl) 88 MCG tabletIndications :Hypothyroidism, unspecified type TAKE 1 TABLET BY MOUTH EVERY DAY 90 tablet 1 5 Active losartan (Cozaar) 25 MG tabletIndications :Essential hypertension Take 1 tablet (25 mg) by mouth Once per day. 90 tablet 3 5 Active Active Problems Problem Noted Date Diagnosed Date History of hepatitis C 08/18/2022 Chronic gastroesophageal reflux disease 03/17/19 23 Essential hypertension 03/17/2022 Uterine fibroids 01/29/2022 Hyperlipidemia 01/29/2022 Hypothyroidism 01/29/2022 BMI 25.0-25.9,adult 01/29/2022 Resolved Problems Problem Noted Date Diagnosed Date Resolved Date Gastroesophageal reflux disease 01/29/2022 03/17/2022 Encounters Date Type Department Care Team Description 05/11/2024 Refill [facility] [address] [place] [address] Elizabeth Guo DO Essential hypertension 05/05/2024 Population Health Risk [facility] [address] [place] [address] [phone] Provider, Population Health Generic 05/03/2024 Refill [facility] [address] [place] [address] Elizabeth Guo DO Hypothyroidism, unspecified type 04/20/2024 [facility]ill [facility] [address] [place] [address] [place], Chhaya, [employer] Dyspepsia 04/20/2024 Refill [facility] [address] [place] [address] Elizabeth Guo DO Essential hypertension 04/19/2024 Refill [facility] [address] [place] [address] Elizabeth Guo DO 04/19/2024 Refill [facility] [address] [place] [address] Elizabeth Guo DO Hypertension, unspecified type from Last 3 Months Immunizations Name Administration [...] is your housing situation today? I have anabarbara grace 12/14/[address] you [...] 02/14/2024 11:47 AM EST Plan of Treatment Upcoming Encounters Date Type Department Care Team (Late st Contact Info) Description 08/22/2024 10:00 AM EDT Office Visit [facility] [address] [place], [place] [phone] Becca Fung, FELIX [address] [place] [address] Health Maintenance Due Date Last Done Comments CT Colonography 1978 Colonoscopy 1978 Colorectal Cancer Screening 1978 FIT DNA/Cologuard 1978 FIT 1978 FOBT 1978 Sigmoidoscopy 1978 Alcohol/Substance Use Screening 1990 Hepatitis A Vaccines (1 of 2 - Risk 2-dose series) 1997 Depression Screening 03/17/2023 03/17/2022, 03/17/19 23 SDOH Screening 03/17/2023 03/17/2022 COVID-19 Vaccine ( [...] Procedure Name Priority Date/Time Associated Diagnosis Comments BI MAMMOGRAM SCREENING TOMOSYNTHESIS BILATERAL Routine 10/18/2023 [...] Recently Relevant to Health Maintenance Results * BI Mammogram Screening Tomosynthesis Bilateral (10/18/2023 10:10 AM EDT) Anatomical Region Laterality Modality Breast Bilateral Mammography 10/18/2023 10:1 0 AM EDT Narrative 11/12/2023 10:15 AM EDT ? [facility] ? [address] ?[place], [place] [address] ? Mammography Report ? Signed ? Patient: Butler Rehman,Felipa ?MR#: [id number] ?? [id number] ? : 1980 ?Acct:[id number] ? Age/Sex: 43 / F ?ADM Date: 10/18/23 ? Loc: HO.MAMMO ? Attending Dr: Becca Fung CNM ? Ordering Physician: BECCA FUNG CNM ?Results: 1 ?? Negative ? Date of Service: 10/18/23 ?Follow Up: 1 Year From Orig ?? inal Mammogram ? Procedure(s): MM tomosynthesis screening BI ?? Accession Number(s): [id number] ? cc: Elizabeth Guo DO; BECCA FUNG [...] ??Tanya Alanis DO ??11/12/2023 10:12 AM EDT ? Dictated By: ?Tanya Alanis DO ? Signed By: ?<Electronically signed by Tanya Alanis, DO in [place]> ? 11/12/23 1012 ? DD/ 1010 ? TD/TT: 10/18/23 1026 ? Satellite Dish Technician: ? Procedure Note Omar, Dereck - 11/12/2023 [facility] [address] [place] [address] Dr. [place], [place] [address] Mammography Report Signed Patient: Carrie RehmanAnaMR#: [id number] : 1980Acct:[id number] Age/Sex: 43 / FADM Date: 10/18/23 Loc: [facility] Attending Dr: Becca Fung CNM Ordering Physician: BECCA FUNGesults: 1 Negative Date of Service: 10/18/23Follow Up: 1 Year From Orig inal Mammogram Procedure(s): MM tomosynthesis screening BI Accession Number(s): [id number] cc: Elizabeth Guo DO; BECCA FUNG CNM [...] 11/12/23 1012 DD/ 1010 TD/TT: 10/18/23 1026 Satellite Dish Technician: Becca Fung CNM [facility] BI PROCEDURES Edited Result - Final * HIV-1/2 Antigen and Antibodies, Fourth Generation, with Reflexes (01/26/2023 9:05 AM EST) HIV AB/AG Nonreactive Nonreactive [facility] Comment:HIV-1 p24 Ag and/or HIV-1/HIV-2 Ab not detected.A test result that is nonreactive does not exclude thepossibility of exposure to or infection with HIV-1 and/orHIV-2. Nonreactive results in this assay for individualswith prior exposure to HIV-1 and/or HIV-2 may be due toantigen and antibody levels that are below the limit ofdetection of this assay.The [employer]ni[employer]est HIV Ag/Ab Combo assay result andsupplemental assay results should be interpreted inconjunction with the patient's clinical presentation,history and other laboratory results. If the results areinconsistent with clinical evidence, additional testing issuggested to confirm the result. Blood Venous blood specimen / Unknown 01/26/2023 9:05 AM EST 01/26/2023 10:53 AM EST Elizabeth Guo DO LAB BLOOD ORDERABLES Final R esult [facility] [address] [place] [phone] * (ABNORMAL) Lipid Panel, Standard (01/26/2023 9:05 AM EST) Triglycerides 148 <150 mg/dL [facility] Comment:Desirable Triglyceri de: less than 150 mg/dLBorderline High Triglyceride 150-199 mg/dLHigh Triglyceride: 200-499 mg/dLVery High Triglyceride: greater than or equal to 5OO mg/dL Cholesterol 215(H) <200 mg/dL [facility] Comment:Desirable Cholestero l: less than 200 mg/dLBorderline High Cholesterol: 200-239 mg/dLHigh Cholesterol: greater than 239 mg/dL LDL Cholesterol Calculated 146(H) <100 mg/dL [facility] Comment:Desirable LDL: less than 100 mg/dLNear Optimal/Above Optimal LDL: 110- 129 mg/dLBorderline High LDL: 130-159 mg/dLHigh LDL: 160-189 mg/dLVery High LDL: greater than or equal to 190 mg/dL HDL Cholesterol 40(L) >40 mg/dL [facility] Comment:Desirable HDL: great er than 40 mg/dL Note: This HDL assay may give artificially low results in patients with liver disease. Blood Venous blood specimen / Unknown 01/26/2023 9:05 AM EST 01/26/2023 10:53 AM EST Elizabeth Jurcsak DO LAB BLOOD ORDERABLES Final R esult [facility] [address] [place] [address] [phone] * THINPREP TIS PAP AND HPV mRNA E6/E7, CT/NG, TRICH (09/08/2021 9:21 AM EDT) Chlamydia trachomatis RNA, TMA, Urogenital NOT DETECTED NOT DETECTED [facility] Clinical Information: None given [facility] COMMENT SEE COMMENT [facility] Comment: The analytical performance characteristics of this assay, when used to test SurePath(TM) specimens have been determined by [employer]. The modifications have not been cleared or approved by the FDA. This assay has been validated pursuant to the CLIA regulations and is used for clinical purposes. ?? For additional information, please refer to https://education.TravelPi/faq/MJF947 (This link is being provided for information/ [...] has been evaluated with computer assisted technology. [facility] Bit Gatherer: SEE COMMENT [facility] Comment: BK,CT(ASCP) CT screening location: [address] HPV nRNA E6/E7 Not Detected Not Detected [facility] Comment: Methodology: Insolvency Practitioner-Mediated Amplification This assay detects E6/E7 viral messenger RNA (mRNA) from 14 high-risk HPV types (16,18,31,33,35,39,45,51,52,56,58,59,66,68). ? Cervical sources are required for HPV testing. If a vaginal source from a patient who has had a total hysterectomy with removal of cervix was ?? submitted, please contact the testing laboratory for alternative testing options. ?? For additional information, please refer to http://SoloLearn.TravelPi/faq/STS259m5 (This link if provided for information/ educational purposes only.) Interpretation/Re sult: Negative for intraepithelial lesion or malignancy. [facility] LMP: NONE GIVEN [facility] N [...] of this assay have been determined by [employer]. The modifications have not been cleared or approved by the FDA. This assay has been validated pursuant to the CLIA regulations and is used for clinical purposes. ?? For additional information, please refer to http://SoloLearn.TravelPi/ faq/Trichomonastma (This link is being provided for information/ educational purposes only.) ?? 09/08/2021 9:21 AM EDT Becca Fung CNM LAB PATHOLOGY ORDERABLES Final Result Performing Organization Address City/State/[facility] Co de Phone Number [facility] [address] from Last 3 Months or Most Recently Relevant to Health Maintenance Insurance [facility] C3 Care Teams Fish Farm Laborer Relationship Specialty Start Date End Date Elizabeth Guo DO [address] [place] [phone] PCP - General Family Medicine 03/03/21
--- OUTSIDE RECORDS SUMMARY | 2024-07-04 10:43 | XMS_ITS | Encounter Summary ---
Author Organization [employer] Address 75 [facility] [address] [place] [address] Care Team Providers Care Real Estate Inspector Name Role Phone Elizabeth Guo DO Primary Care Provider + [phone] Reason for Visit * Reason Comments Med Refill Encounter Details Date Type Department Care Team ([facility] st Contact Info) Description 07/22/[address] [facility] [address] [place], [place] [phone] Elizabeth Guo DO [address] [place], [place] [phone] Social History Tobacco Use Types Packs/Day Years [...] Description 08/22/2024 10:00 AM EDT Office Visit [facility] [address] [place] [address] Ligia Bravo CNM [address] [place] [address] documented as of this encounter Visit Diagnoses Not on filedocumented in this encounter Additional Health Concerns Assessment Noted Time PHQ-9 Depression Total Score: 0 03/17/19 23 10:03 AM EST documented as of this encounter Care Teams Real Estate Inspector Relationship Specialty Start Date End Date Elizabeth Guo DO [address] [place] [address] PCP - General Family Medicine 03/03/21 documented as of this encounter
--- OUTSIDE RECORDS SUMMARY | 2024-07-04 10:43 | XMS_ITS | Encounter Summary ---
Author Organization [employer] Address 75 [facility] [address] [place] [address] Care Team Providers Care Director Of Recruitment And Admissions Name Role Phone Elizabeth Guo DO Primary Care Provider + [phone] Reason for Visit * Reason Comments Med Refill Encounter Details Date Type Department Care Team ([facility] st Contact Info) Description 04/19/2024 Refill [facility] [address] [place], [place] [phone] Elizabeth Guo DO [address] [place], [place] [phone] Social History Tobacco Use Types Packs/Day Years [...] 08/22/2024 10:00 AM EDT Office Visit [facility] [address] [place] [address] Ligia Bravo CNM [address] [place] [address] documented as of this encounter Visit Diagnoses Not on filedocumented in this encounter Additional Health Concerns Assessment Noted Time PHQ-9 Depression Total Score: 0 03/17/19 23 10:03 AM EST documented as of this encounter Care Teams Director Of Recruitment And Admissions Relationship Specialty Start Date End Date Elizabeth Guo DO [address] [place] [address] PCP - General Family Medicine 03/03/21 documented as of this encounter
== END 2024-07-04 10:14 | disposition home or self-care (01) ==
LOC: HO.HGI 09:53
PROVIDERS: PCP Family Medicine; Visit Provider Nurse Practitioner
DX: Z83.719 Family history of colon polyps, unspecified (principal); K21.00 Gastro-esophageal reflux disease with esophagitis, without bleeding
CPT/HCPCS: 99213

== ENCOUNTER → 2024-07-04 09:52 | Outpatient (BNVA) | payer MEDICAID, SELFPAY | PROVIDERS: PCP Family Medicine; Visit Provider Nurse Practitioner | DX: K21.00 Gastro-esophageal reflux disease with esophagitis, without bleeding (principal); Z83.719 Family history of colon polyps, unspecified | CPT/HCPCS: 99212 ==

== ENCOUNTER 2024-07-31 15:23 | Outpatient (REF) | payer MEDICAID, SELFPAY ==
--- NOTE | ~2024-07-31 | US_ITS ---
EXAMINATION: US PELVIS CLINICAL INFORMATION: Uterine leiomyoma COMPARISON: CT on February 06, 2024 TECHNIQUE: Ultrasound of the pelvis is performed using both transabdominal and transvaginal transducers along with Doppler. Transvaginal imaging is performed due to inadequate visualization transabdominally. FINDINGS: Uterus: The uterus measures 10.4 x 7.6 x 9.2 cm. cm. Cystic change in the cervix is consistent with nabothian cysts. The endometrial stripe is 14 mm. The uterus mildly increased in size. It demonstrates a coarse echotexture. There is a heterogeneous region in the posterior upper body that measures 4.3 x 5.1 x 6.0 cm, similar to the prior CT. There is a smaller hypoechoic region just cephalad to the aforementioned leiomyoma measuring 8 mm diameter. Adnexa: Both ovaries are visualized. There is normal color flow to the adnexa. There is no ovarian torsion. There is no pelvic ascites or fluid collection. Right ovary measures 4.6 x 2.2 x 2.4 cm cm. A few small follicles are visible. Left ovary measures 4.5 x 2.7 x 2.6 cm . Homogeneous. US/US pelvic and transvaginal IMPRESSION: Uterine leiomyoma, 2 adjacent are demonstrated on today's exam. The largest measures 6 cm long axis. It is in the myometrium, possibly extending to the submucosal region. Endometrial stripe thickness is at the upper limits of normal. Electronically signed by: Neal Williamson MD 07/31/2024 06:12 PM EDT
--- OUTSIDE RECORDS SUMMARY | 2024-07-31 17:05 | XMS_ITS | Clinical Summary ---
Author Organization [employer] Address [address] [facility] [address] [place] [address] Care Team Providers Care Float Remover Name Role Phone Elizabeth Guo DO Primary Care Provider [phone] Allergies Active Allergy Reactions Criticality Noted Date [...] Type Department Care Team Description 05/11/2024 Refill [facility] [address] [place] [address] Elizabeth Guo DO Essential hypertension 05/05/2024 Population Health Risk [facility] Department [address] [phone] Provider, Population Health Generic 05/03/2024 Refill [facility] [address] [place] [address] Elizabeth Guo DO Hypothyroidism, unspecified type from Last 3 Months Immunizations Immunization Administration Dates Next Due Hep B, adult [...] Description 08/22/2024 10:00 AM EDT Office Visit [facility] [address] [place] [address] PengtonyBecca sommer, CNM [address] [place] [address] Health Maintenance Due Date Last Done Comments CT Colonography 1978 Colonoscopy 1978 Colorectal Cancer Screening 1978 FIT DNA/Cologuard 1978 FIT 1978 FOBT 1978 Sigmoidoscopy 1978 Alcohol/Substance Use Screening 1990 Hepatitis A Vaccines (1 of 2 - Risk 2-dose series) 1997 Depression Screening 03/17/2023 03/17/2022, 03/17/19 23 SDOH Screening 03/17/2023 03/17/2022 COVID-19 Vaccine ( season) 2023 09/06/2020, 08/16/2020 Family Planning (PISQ) 08/22/2024 08/23/2023 Influenza Vaccine (Season Ended) 2024 11/17/2018, 04/09/2016 Disability Screening 02/07/2025 02/08/2024 Tobacco Screening 02/13/2025 02/14/2024 Mammogram 10/17/2025 10/18/2023, 09/23, 10/13/2022, Additional history exists Cervical Cancer Screening 09/08/2026 HPV/Cotest 09/08/2026 09/08/2021, 09/09/2016 Pap Smear 09/08/2026 09/08/2021, 01/21/2018 Lipid Panel 01/27/2028 01/26/2023, 01/23, 03/04/2021, Additional [...] patient's age to complete this topic Meningococcal B Vaccine Aged Out No l onger eligible based on patient's age to complete [...] EDT Narrative 11/12/2023 10:15 AM EDT ? [facility] ? [address] ?[place] [address] ? Mammography Report ? Signed ? Patient: Butler Rehman,Felipa ?MR#: [id number] ?? [id number] ? : 1980 ?Acct:[id number] ? Age/Sex: 43 / F ?ADM Date: 10/18/23 ? Loc: HO.MAMMO ? Attending Dr: Becca Fung CNM ? Ordering Physician: BECCA FUNG CNAnaly ?Results: 1 ?? Negative ? Date of Service: 10/18/23 ?Follow Up: 1 Year From Orig ?? inal Mammogram ? Procedure(s): MM tomosynthesis screening BI ?? Accession Number(s): [id number] ? cc: Elizabeth Guo DO; BECCA FUNG [...] DD/ 1010 ? TD/TT: 10/18/23 1026 ? Mainframe Analyst: ? Procedure Note Omar, Dereck - 11/12/2023 [facility] [address] [place] [address] Mammography Report Signed Patient: Haylee lFeming#: [id number] : 1980Acct:[id number] Age/Sex: 43 / FADM Date: 10/18/23 Loc: HO.MAMMO Attending Dr: Becca Fung CNM Ordering Physician: BECCA FUNGesults: 1 Negative Date of Service: 10/18/23Follow Up: 1 Year From Orig inal Mammogram Procedure(s): MM tomosynthesis screening BI Accession Number(s): [id number] cc: Elizabeth Guo DO; BECCA FUNG CNM [...] Tanya Alanis DO 11/12/2023 10:12 AM EDT RP Dictated By: Tanya Alanis DO Signed By: <Electronically signed by Tanya Alnais DO in OV> 11/12/23 1012 DD/ 1010 TD/TT: 10/18/23 1026 Mainframe Analyst: Becca WASHINGTON IM BI PROCEDURES Edited Result - Final * HIV-1/2 Antigen and Antibodies, Fourth Generation, with Reflexes (01/26/2023 9:05 AM EST) HIV AB/AG Nonreactive Nonreactive [facility] Comment:HIV-1 p24 Ag and/or HIV-1/HIV-2 Ab not detected.A test result that is nonreactive does not exclude thepossibility of exposure to or infection with HIV-1 and/orHIV-2. Nonreactive results in this assay for individualswith prior exposure to HIV-1 and/or HIV-2 may be due toantigen and antibody levels that are below the limit ofdetection of this assay.The etouches HIV Ag/Ab Combo assay result andsupplemental assay results should be interpreted inconjunction with the patient's clinical presentation,history and other laboratory results. If the results areinconsistent with clinical evidence, additional testing issuggested to confirm the result. Blood Venous blood specimen / Unknown 01/26/2023 9:05 AM EST 01/26/2023 10:53 AM EST us Elizabeth Guo DO LAB BLOOD ORDERABLES Final R esult Performing Organization Address City/[facility]/ZIP Co de Phone Number [facility] [address] [place] [phone] [phone] * (ABNORMAL) Lipid Panel, Standard (01/26/2023 9:05 AM EST) Triglycerides 148 <150 mg/dL [facility] Comment:Desirable Triglyceri de: less than 150 mg/dLBorderline High Triglyceride 150-199 mg/dLHigh Triglyceride: 200-499 mg/dLVery High Triglyceride: greater than or equal to 5OO mg/dL Cholesterol 215(H) <200 mg/dL [facility] Comment:Desirable Cholestero l: less than 200 mg/dLBorderline High Cholesterol: 200-239 mg/dLHigh Cholesterol: greater than 239 mg/dL LDL Cholesterol Calculated 146(H) <100 mg/dL [facility] Comment:Desirable LDL: less than 100 mg/dLNear Optimal/Above Optimal LDL: 110- 129 mg/dLBorderline High LDL: 130-159 mg/dLHigh LDL: 160-189 mg/dLVery High LDL: greater than or equal to 190 mg/dL HDL Cholesterol 40(L) >40 mg/dL [facility] Comment:Desirable HDL: great er than 40 mg/dL Note: This HDL assay may give artificially low results in patients with liver disease. Blood Venous blood specimen / Unknown 01/26/2023 9:05 AM EST 01/26/2023 10:53 AM EST Elizabeth Ortizada DO LAB BLOOD ORDERABLES Final R esult [facility] [address] [place] [address] [phone] * THINPREP TIS PAP AND HPV mRNA E6/E7, CT/NG, TRICH (09/08/2021 9:21 AM EDT) Chlamydia trachomatis RNA, TMA, Urogenital NOT DETECTED NOT DETECTED [facility] Clinical Information: None given [facility] COMMENT SEE COMMENT [facility] Comment: The analytical performance characteristics of this assay, when used to test SurePath(TM) specimens have been determined by [employer]. The modifications have not been cleared or approved by the FDA. This assay has been validated pursuant to the CLIA regulations and is used for clinical purposes. ?? For additional information, please refer to https://education.Lumific/faq/LVT621 (This link is being provided for information/ [...] has been evaluated with computer assisted technology. [facility] Casing Inspector: SEE COMMENT [facility] Comment: BK,CT(ASCP) CT screening location: [address] HPV nRNA E6/E7 Not Detected Not Detected [facility] Comment: Methodology: Solutions Developer-Mediated Amplification This assay detects E6/E7 viral messenger RNA (mRNA) from 14 high-risk HPV types (16,18,31,33,35,39,45,51,52,56,58,59,66,68). ? Cervical sources are required for HPV testing. If a vaginal source from a patient who has had a total hysterectomy with removal of cervix was ?? submitted, please contact the testing laboratory for alternative testing options. ?? For additional information, please refer to http://education.Lumific/faq/PDV620j6 (This link if provided for information/ educational purposes only.) Interpretation/Re sult: Negative for intraepithelial lesion or malignancy. [facility] LMP: NONE GIVEN [facility] Neisseria gonorrhoeae RNA, TMA, Urogenital NOT DETECTED NOT DETECTED [facility] Prev. BX: NONE [facility]IV[facility] Prev. PAP: NONE [facility]IV[facility] SOURCE: None given [facility] Statement Of Adequacy: SEE COMMENT [facility] Comment: Satisfactory for evaluation. Endocervical/transformation zone component absent. Trichomonas vaginalis, QL, TMA, PAP Vial NOT DETECTED NOT DETECTED [facility] Comment: The analytical performance characteristics of this assay have been determined by [facility]. The modifications have not been cleared or approved by the FDA. This assay has been validated pursuant to the CLIA regulations and is used for clinical purposes. ?? For additional information, please refer to http://education.Lumific/ faq/Trichomonastma (This link is being provided for information/ educational purposes only.) ?? 09/08/2021 9:21 AM EDT us Becca Fung CNM LAB PATHOLOGY ORDERABLES Final Result Performing Organization Address City/State/[facility] Co de Phone Number [facility] [address] from Last 3 Months or Most Recently Relevant to Health Maintenance Insurance [employer] C3 Care Teams Float Remover Relationship Specialty Start Date End Date Elizabeth Guo DO [address] [place] [address] PCP - General Family Medicine 03/03/21
== END 2024-07-31 15:24 | disposition home or self-care (01) ==
LOC: HO.US 15:23
PROVIDERS: PCP Family Medicine; Visit Provider Obstetrics & Gynecology
DX: D25.9 Leiomyoma of uterus, unspecified (principal)
CPT/HCPCS: 76830; 76856

== ENCOUNTER → 2024-07-31 15:25 | Outpatient (BNV) | payer MEDICAID, SELFPAY | PROVIDERS: PCP Family Medicine; Visit Provider Radiology Diagnostic Radiology | DX: D25.9 Leiomyoma of uterus, unspecified (principal); N85.00 Endometrial hyperplasia, unspecified | CPT/HCPCS: 76830; 76856 ==

== ENCOUNTER 2024-08-14 12:52 | Outpatient (AMB) | payer MEDICAID, SELFPAY ==
--- NOTE | 2024-08-14 13:24 | A.OFFVIS_ITS ---
Vital Signs 08/14/24 13:25 Height 5 ft 3 in Weight 146 lb BMI 25.9 Intake Visit Reasons: ultrasound follow up Fingerprint Expert Required: Yes Fingerprint Expert Language: Sql Data Architect Services: Fingerprint Expert Present (in person) Information Interpreted: non-clinical & clinical Accompanied by: Self / Same As Patient Allergies hydrocodone Allergy (Mild, Verified 08/14/24 13:25) Nausea HPI Comments Details: Presenting for ultrasound follow-up regarding myomas Pelvic ultrasound done on 07/31/2024 showed the following: Uterus: The uterus measures 10.4 x 7.6 x 9.2 cm. cm. Cystic change in the cervix is consistent with nabothian cysts. The endometrial stripe is 14 mm. The uterus mildly increased in size. It demonstrates a coarse echotexture. There is a heterogeneous region in the posterior upper body that measures 4.3 x 5.1 x 6.0 cm, similar to the prior CT. There is a smaller hypoechoic region just cephalad to the aforementioned leiomyoma measuring 8 mm diameter. Adnexa: Both ovaries are visualized. There is normal color flow to the adnexa. There is no ovarian torsion. There is no pelvic ascites or fluid collection. Right ovary measures 4.6 x 2.2 x 2.4 cm cm. A few small follicles are visible. Left ovary measures 4.5 x 2.7 x 2.6 cm . Homogeneous. US/US pelvic and transvaginal IMPRESSION: Uterine leiomyoma, 2 adjacent are demonstrated on today's exam. The largest measures 6 cm long axis. It is in the myometrium, possibly extending to the submucosal region. Endometrial stripe thickness is at the upper limits of normal. 09/14 pelvic ultrasound showed the following myoma sizes: Uterine fibroids: 1. Anterior mid body 3.3 x 3.1 x 3.1 cm. Previous measurement 1.2 x 0.8 x 1.4 cm. 2. Anterior submucosal near the fundus. 1.3 x 0.9 x 1.5 cm. This fibroid was not evident previously. 3. Fundal fibroid. 1.2 x 0.9 x 1 cm. Previous measurement 1 x 1 x 1 cm. 01/15 EMB pathology showed the following: Proliferative endometrium; few strips of endocervical epithelium within normal limits; no atypia or hyperplasia identified 12/15 co testing negative [facility] Medical History Pre-op examination Bartholin cyst Relies on tubal ligation as primary control method Cough due to MICHEAL inhibitor Cough Potential exposure to STD Well woman exam with routine gynecological exam Hypothyroid Surgical History History of esophagogastroduodenoscopy (EGD) History of abdominoplasty Family History Father HTN (hypertension) Mother HTN (hypertension) Paternal Grandmother Heart attack Social History Household Members: Children Housing: House Alcohol intake: current Alcohol intake frequency: holidays/special occasions only Patient Tobacco Use Status: Never used Tobacco Current occupational status: employed 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 Sexual orientation: Straight/Heterosexual Gender identity: Female Female Reproductive History Menstrual Age of Menarche: 14 Review of Systems Const All systems reviewed & are unremarkable except as noted in HPI and below Reports as per HPI and Reports no additional complaints GI Reports no additional complaints Reports no additional complaints Assessment & Plan Assessment & Plan (1) Uterine myoma: Comment: Increasing in size Code(s): D25.9 - Leiomyoma of uterus, unspecified Category: Medical Plan: Discussed with the patient the findings on pelvic ultrasound & the risk of myosarcoma; in addition reviewed with the patient that malignancy and pre malignancy cannot be ruled out without hysterectomy for pathological evaluation ; furthermore, explained to the patient the limitation of pelvic ultrasound and endometrial biopsy in the setting. In addition, discussed with the patient options of treatment for myomas including: Serial ultrasounds periodically to follow-up on the size of the myoma while targeting the treatment against fibroids related symptoms ( control pills, Mirena IUD, progesterone treatment, GnRH agonist/antagonist, uterine artery embolization or endometrial ablation) versus surgical treatment including hysterectomy and /or myomectomy. All pros and cons, risks and benefits of all options were discussed with the patient. The patient decided to proceed with definitive surgical management, hysterectomy. Discussed with the patient the different types of hysterectomies including, vaginal, laparoscopic assisted vaginal, robotic assisted laparoscopic,& abdominal with BSO. All pros, cons, r/b of each approach were discussed the patient including evidence that morbidity is less and recovery is shorter with minimally invasive approaches to hysterectomy. Discussed with the patient the lack of availability of the robot DaVinci robot and/or minimally invasive bleacher kraft pulp specialist at [facility]. Will refer to [facility] minimally invasive arborer surgery. Instructed the patient to call our office back in case a referral appointment is not scheduled, missed or canceled so that we will assist on rescheduling another appointment, the patient verbalized understanding agreed with the plan. Coding Level of Care Code Est Pt Level 3 (20440) Diagnoses Uterine myoma D25.9
[2024-08-14 13:25] VITALS: BMI 25.9
--- OUTSIDE RECORDS SUMMARY | 2024-08-14 14:11 | XMS_ITS | Encounter Summary ---
Author Organization [employer] Address [address] [facility] [address] [place] [address] Care Team Providers Care Hvac Services Professional Name Role Phone Elizabeth Guo DO Primary Care Provider [phone] Encounter Details Date Type Department Care Team (Late st Contact Info) Description 08/14/2024 Orders Only GENERIC EXTERNAL DATA DEPARTMENT Provider, Generic External Data Social History Tobacco Use Types Packs/Day Years [...] Description 08/22/2024 10:00 AM EDT Office Visit [facility] [address] [place], [place] [phone] Ligia Bravo CNM [address] [place], [place] [phone] 08/28/2024 11:15 AM EDT Office Visit [facility] [address] [place], [place] [phone] Elizabeth Guo DO [address] [place], [place] [phone] documented as of this encounter Procedures Procedure Name Priority Date/Time Associated Diagnosis Comments CBC Routine 08/14/2024 1:50 PM EDT documented in this encounter Results * (ABNORMAL) CBC (08/14/2024 1:50 PM EDT) White Blood Count 6.5 4.8 - 10.8 X10*3/uL [facility] Red Blood Count 3.92(L) 4.20 - 5.50 X10*6/uL [facility] Hemoglobin 12.1 12.0 - 16.0 g/dl [facility] Hematocrit 34.4(L) 37.0 - 47.0 % [facility] Mean Corpuscular Volume 87.8 80.0 - 98.0 fL [facility] Mean Corpuscular Hemoglobin 30.9 27.0 - 33.0 pg [facility] Mean Corpuscular HGB Conc 35.2(H) 31.0 - 35.0 g/dl [facility] Red Cell Distribution Width 12.4 11.0 - 16.0 % [facility] Platelet Count 239 160 - 400 X10*3/uL [facility] Mean Platelet Volume 9.3(L) 9.4 - 12.3 fL [facility] NRBC Pct Auto 0.0 0.0 - 0.2 /100WBC [facility] NRBC Abs Auto 0.000 0.0 - 0.012 X10*3/uL [facility] 08/14/2024 1:50 PM EDT 08/14/2024 1:50 PM EDT us Generic External Data Provider LAB BLOOD ORDERAB LES Final Result Performing Organization Address City/State/[facility] Co de Phone Number [facility] [address] [place] [address] [phone] documented in this encounter Visit Diagnoses Not on filedocumented in this encounter Additional Health Concerns Assessment Noted Time PHQ-9 Depression Total Score: 0 03/17/19 23 10:03 AM EST documented as of this encounter Care Teams Hvac Services Professional Relationship Specialty Start Date End Date Elizabeth Guo DO [address] [place] [address] PCP - General Family Medicine 03/03/21 documented as of this encounter
== END 2024-08-14 13:38 | disposition home or self-care (01) ==
LOC: HO.HWS 12:52
PROVIDERS: PCP Family Medicine; Visit Provider Obstetrics & Gynecology
DX: D25.9 Leiomyoma of uterus, unspecified (principal)
CPT/HCPCS: 99213

== ENCOUNTER 2024-08-14 12:52 | Outpatient (REF) | payer MEDICAID, SELFPAY ==
[2024-08-14 13:55] LABS: Hematocrit 34.4 % (37.0-47.0); Hemoglobin 12.1 g/dl (12.0-16.0); Mean Corpuscular HGB Conc 35.2 g/dl (31.0-35.0); Mean Corpuscular Hemoglobin 30.9 pg (27.0-33.0); Mean Corpuscular Volume 87.8 fL (80.0-98.0); Mean Platelet Volume 9.3 fL (9.4-12.3); Platelet Count 239 X10*3/uL (160-400); Red Blood Count 3.92 X10*6/uL (4.20-5.50); Red Cell Distribution Width 12.4 % (11.0-16.0); White Blood Count 6.5 X10*3/uL (4.8-10.8)
== END 2024-08-14 12:53 | disposition home or self-care (01) ==
LOC: HO.LAB 12:52
PROVIDERS: PCP Family Medicine; Visit Provider Obstetrics & Gynecology
DX: N93.9 Abnormal uterine and vaginal bleeding, unspecified (principal); D25.9 Leiomyoma of uterus, unspecified
CPT/HCPCS: 36415; 85027; 99212

== ENCOUNTER 2024-08-29 08:45 | Outpatient (REF) | payer MEDICAID, SELFPAY ==
--- OUTSIDE RECORDS SUMMARY | 2024-08-29 09:03 | XMS_ITS | Clinical Summary ---
Author Organization [employer] Address [address] [facility] [address] [place] [address] Care Team Providers Care Armature Straightener Name Role Phone Elizabeth Guo DO Primary Care Provider + [phone] Allergies Active Allergy Reactions Criticality Noted Date Comments Hydrocodone-Acetaminophen Nausea Only Low 4 Medications baclofen (Lioresal) 10 MG tablet Take 1 tablet by mouth in the morning and 1 tablet at noon and 1 tablet in the evening. 10/21/19 22 Active Diclofenac Sodium 1 % gel apply (2G) by topical route 3 times every day to the affected area(s) 08/20/19 22 Active naproxen (Naprosyn) 500 MG tablet Take 1 tablet by mouth in the morning and 1 tablet in the evening. 10/21/19 22 Active Multiple Vitamins-Iron (Daily Alexander Multivitamin/Ir on) tabletIndicatio ns:Iron deficiency One tab po daily 90 tablet 3 02/14/20 22 Active acetaminophen (Tylenol) 500 MG tablet Take 2 tablets (1,000 mg) by mouth every 8 (eight) hours. 30 tablet 12/25/19 23 Active omeprazole (PriLOSEC) [address] capsule Take 20 mg by mouth 2 times daily. 08/02/19 24 Active ferrous sulfate 325 (65 Fe) MG tablet TAKE 1 TAB (325 MG) ORALLY DAILY FOR 30 DAYS 12/10/19 24 Active hydroCHLOROthia zide 12.5 MG tabletIndicatio ns:Hypertension , unspecified type Take 1 tablet (12.5 mg) by mouth in the morning. 90 tablet 3 04/19/19 25 Active amitriptyline (Elavil) 10 MG tabletIndicatio ns:Dyspepsia Take 1 tablet (10 mg) by mouth at bedtime. 30 tablet 04/20/19 25 Active levothyroxine (Synthroid, Levoxyl) 88 MCG tabletIndicatio ns:Hypothyroidi sm, unspecified type TAKE 1 TABLET BY MOUTH EVERY DAY 90 tablet 1 05/04/19 25 Active losartan (Cozaar) 25 MG tabletIndicatio ns:Essential hypertension Take 1 tablet (25 mg) by mouth Once per day. 90 tablet 3 05/12/19 25 Active cetirizine (ZyrTEC) 10 MG tablet Take 1 tablet (10 mg) by mouth Once per day. 90 tablet 3 08/29/19 25 026 Active fluticasone (Flonase) 50 MCG/ACT nasal spray Administer 2 sprays into each nostril Once per day. Shake gently. Before first use, prime pump. After use, clean tip and replace cap. 16 g 3 08/29/19 25 026 Active tranexamic acid (Lysteda) 650 MG tablet tablet TAKE 2 TABLETS BY MOUTH THREE TIMES DAILY FOR 5 DAYS. START ON DAY 1 OF MENSES AND TAKE UP TO 3-5 DAYS OF MENSES 30 tablet 1 08/29/19 25 Active lisinopril 5 MG tabletIndicatio ns:Essential hypertension Take 1 tablet (5 mg) by mouth Once per day. 90 tablet 3 04/20/19 25 025 Discontinued(S victor hugo effects) tranexamic acid (Lysteda) 650 MG tablet tablet TAKE 2 TABLETS BY MOUTH THREE TIMES DAILY FOR 5 DAYS. START ON DAY 1 OF MENSES AND TAKE UP TO 3-5 DAYS OF MENSES 08/04/19 25 025 Discontinued(R eorder (will not trigger notification to Pharmacy)) Active Problems Problem Noted Date Diagnosed Date History of hepatitis C 08/18/2022 Chronic gastroesophageal reflux disease 03/17/19 23 Essential hypertension 03/17/2022 Uterine fibroids 01/29/2022 Hyperlipidemia 01/29/2022 Hypothyroidism 01/29/2022 BMI 25.0-25.9,adult 01/29/2022 Resolved Problems Problem Noted Date Diagnosed Date Resolved Date Gastroesophageal reflux disease 01/29/2022 03/17/2022 Encounters Date Type Department Care Team Description 08/28/2024 11:15 AM EDT Office Visit [facility] [address] [place] [address] Elizabeth Guo DO Essential hypertension (Primary Dx); Other hyperlipidemia; Hypothyroidism, unspecified type; Chronic gastroesophageal reflux disease; Menorrhagia with regular cycle; Globus sensation; Healthcare maintenance; Encounter for screening mammogram for malignant neoplasm of breast 08/28/2024 Travel 08/21/2024 Travel 08/18/2024 Patient Outreach [facility] [address] [place] [address] Elizabeth Guo DO Pre-visit Planning (SDOH unable to reach [facility] ) 08/17/2024 Telephone [facility] [address] [place] [address] Elizabeth Guo DO Chart Prep 08/14/2024 Orders Only GENERIC EXTERNAL DATA DEPARTMENT Provider, Generic External Data 08/01/[address] [address] Elizabeth Guo DO Recall Letter (Recall Letter sent 08/01/24.) 07/31/2024 Orders Only [facility] External Provider, [facility] from Last 3 Months Immunizations Immunization Administration [...] Date Recorded Patient Health Questionnaire-9 Score 0 08/28/2024 Patient Health Questionnaire-9 Score 0 08/28/2024 Last PHQ-9: Questionnaire Data Not on file 0 08/28/2024 Housing Stability Answer Date Recorded What is your housing situation today? I have ana grace 08/28/[address] you li ve. Do you have problems with any of the following? None of the above 08/28/2024 Food Insecurity Answer Date Recorded Within the past 12 months, y ou worried that your food would run out before you got money to buy more: Never True 08/28/2024 Within the past 12 months,th e food you bought just didn't last and you didn't have enough money to get more: Never True 08/2024 Transportation Answer Date Recorded In the past 12 months, has l ack of transportation kept you from medical appts, meetings, work or from getting things needed for daily living? No 08/28/2024 Utilities Answer Date Recorded In the past 12 months, has t he electric, gas, oil or water company threatened to shut off services in your home? No 08/28/2024 Depression Answer Date Recorded Patient Health Questionnaire-2 Score 0 08/28/2024 Internet Access Answer Date Recorded Internet Access Q1 Yes 08/28/2024 Internet Access Q2 Not on file 08/28/2024 Comments No Sex and Gender Information Value Date Recorded Sex Assigned at Female 12/22/2021 10:27 AM EDT Legal Sex Female 10:27 AM EDT Gender Identity Female 12/22/2021 10:27 AM EDT Sexual Orientation Straight 12/22/2021 10 :27 AM EDT Last Filed Vital Signs Vital Sign Reading Time Taken Comments Blood Pressure 130/78 08/28/2024 11:32 AM EDT Pulse 84 08/28/2024 11:32 AM EDT Temperature 36.7 C (98.1 F) 08/28/2024 11:32 AM EDT Respiratory Rate 18 08/28/2024 11:32 AM EDT Oxygen Saturation 100% 08/23/2023 11:11 AM EDT Inhaled Oxygen Concentration - - Weight 68.7 kg (151 lb 6.4 oz) 08/28/2024 11:32 AM EDT Height 160 cm (5' 3 ) 08/28/2024 11:32 AM EDT Body Mass Index 26.82 08/28/2024 11:32 AM EDT Plan of Treatment Health Maintenance Due Date Last Done Comments CT Colonography 1978 Colonoscopy 1978 Colorectal Cancer Screening 1978 FIT DNA/Cologuard 1978 FIT 1978 FOBT 1978 Sigmoidoscopy 1978 Alcohol/Substance Use Screening 1990 Family Planning (PISQ) 1993 Hepatitis A Vaccines (1 of 2 - Risk 2-dose series) 1997 COVID-19 Vaccine ( season) 2023 09/06/2020, 08/16/2020 Influenza Vaccine (#1) 2024 11/17/2018, 2016 Depression Screening 08/28/2025 08/28/2024, 08/29/19 25 Disability Screening 08/28/2025 08/28/2024 SDOH Screening 08/28/2025 08/28/2024 Tobacco Screening 08/28/2025 08/28/2024 Mammogram 10/17/2025 10/18/2023, 09/23, 10/13/2022, Additional history [...] Years) and At-Risk Patients (6 to 49) Years Aged Out No longer eligible based on patient's age to complete this topic RSV under 20 months Aged Out No longe r eligible based on patient's age to complete this topic Rotavirus Vaccines Aged Out No longer eligible based on patient's age to complete this topic Procedures Procedure Name Priority Date/Time Associated Diagnosis Comments CBC Routine 08/14/2024 1:50 PM EDT US PELVIS TRANSVAGINAL Routine 07/31/2024 3:42 PM EDT BI MAMMOGRAM SCREENING TOMOSYNTHESIS BILATERAL Routine 10/18/2023 [...] Recently Relevant to Health Maintenance Results * (ABNORMAL) CBC (08/14/2024 1:50 PM EDT) White Blood Count 6.5 4.8 - 10.8 X10*3/uL [facility] Red Blood Count 3.92(L) 4.20 - 5.50 X10*6/uL [facility] Hemoglobin 12.1 12.0 - 16.0 g/dl [facility] Hematocrit 34.4(L) 37.0 - 47.0 % [facility] Mean Corpuscular Volume 87.8 80.0 - 98.0 fL [facility] Mean Corpuscular Hemoglobin 30.9 27.0 - 33.0 pg [facility] Mean Corpuscular HGB Conc 35.2(H) 31.0 - 35.0 g/dl [facility] Red Cell Distribution Width 12.4 11.0 - 16.0 % [facility] Platelet Count 239 160 - 400 X10*3/uL [facility] Mean Platelet Volume 9.3(L) 9.4 - 12.3 fL [facility] NRBC Pct Auto 0.0 0.0 - 0.2 /100WBC [facility] NRBC Abs Auto 0.000 0.0 - 0.012 X10*3/uL [facility] 08/14/2024 1:50 PM EDT 08/14/2024 1:50 PM EDT us Generic External Data Provider LAB BLOOD ORDERAB LES Final Result Performing Organization Address City/State/[facility] Co de Phone Number [facility] [address] [place] [phone] * US Pelvis Transvaginal (07/31/2024 3:42 PM EDT) Anatomical Region Laterality Modality Pelvis Ultrasound 07/31/2024 3:42 PM EDT Narrative 07/31/2024 6:15 PM EDT [address] [address] Ultrasound Report Signed Patient: Felipa Fleming MR#: [id number] : 1980 Acct:[id number] Age/Sex: 44 / F ADM Date: 07/31/24 Loc: HO.US Attending Dr: Robb Mena MD Ordering Physician: Robb Mena MD Date of Service: 07/31/24 Procedure(s): US pelvic and transvaginal Accession Number(s): [id number] cc: Elizabeth Guo Marc J MD EXAMINATION: US PELVIS CLINICAL INFORMATION: Uterine leiomyoma COMPARISON: CT on February 06, 2024 TECHNIQUE: Ultrasound of the pelvis is performed using both transabdominal and transvaginal transducers along with Doppler. Transvaginal imaging is performed due to inadequate visualization transabdominally. FINDINGS: Uterus: The uterus measures 10.4 x 7.6 x 9.2 cm. cm. Cystic change in the cervix is consistent with nabothian cysts. The endometrial stripe is 14 mm. The uterus mildly increased in size. It demonstrates a coarse echotexture. There is a heterogeneous region in the posterior upper body that measures 4.3 x 5.1 x 6.0 cm, similar to the prior CT. There is a smaller hypoechoic region just cephalad to the aforementioned leiomyoma measuring 8 mm diameter. Adnexa: Both ovaries are visualized. There is normal color flow to the adnexa. There is no ovarian torsion. There is no pelvic ascites or fluid collection. Right ovary measures 4.6 x 2.2 x 2.4 cm cm. A few small follicles are visible. Left ovary measures 4.5 x 2.7 x 2.6 cm . Homogeneous. US/US pelvic and transvaginal IMPRESSION: Uterine leiomyoma, 2 adjacent are demonstrated on today's exam. The largest measures 6 cm long axis. It is in the myometrium, possibly extending to the submucosal region. Endometrial stripe thickness is at the upper limits of normal. Electronically signed by: Neal Williamson MD 07/31/2024 06:12 PM EDT Dictated By: Neal Williamson MD Signed By: <Electronically signed by Neal Williamson MD in OV> 07/31/24 1812 DD/ 1542 TD/TT: 07/31/24 1610 Preschool Teacher: Procedure Note Donotuseinterpreter, Image - 07/31/[address] [address] Ultrasound Report Signed Patient: Haylee Fleming#: [id number] : 1980Acct:[id number] Age/Sex: 44 / FADM Date: 07/31/24 Loc: HO.US Attending Dr: Robb Mena MD Ordering Physician: Robb Mena MD Date of Service: 07/31/24 Procedure(s): US pelvic and transvaginal Accession Number(s): [id number] cc: Elizabeth Guo DO; Robb Mena MD EXAMINATION: US PELVIS CLINICAL INFORMATION: Uterine leiomyoma COMPARISON: CT on February 06, 2024 TECHNIQUE: Ultrasound of the pelvis is performed using both transabdominal and transvaginal transducers along with Doppler. Transvaginal imaging is performed due to inadequate visualization transabdominally. FINDINGS: Uterus: The uterus measures 10.4 x 7.6 x 9.2 cm. cm. Cystic change in the cervix is consistent with nabothian cysts. The endometrial stripe is 14 mm. The uterus mildly increased in size. It demonstrates a coarse echotexture. There is a heterogeneous region in the posterior upper body that measures 4.3 x 5.1 x 6.0 cm, similar to the prior CT. There is a smaller hypoechoic region just cephalad to the aforementioned leiomyoma measuring 8 mm diameter. Adnexa: Both ovaries are visualized. There is normal color flow to the adnexa. There is no ovarian torsion. There is no pelvic ascites or fluid collection. Right ovary measures 4.6 x 2.2 x 2.4 cm cm. A few small follicles are visible. Left ovary measures 4.5 x 2.7 x 2.6 cm . Homogeneous. US/US pelvic and transvaginal IMPRESSION: Uterine leiomyoma, 2 adjacent are demonstrated on today's exam. The largest measures 6 cm long axis. It is in the myometrium, possibly extending to the submucosal region. Endometrial stripe thickness is at the upper limits of normal. Electronically signed by: Neal Williamson MD 07/31/2024 06:12 PM EDT Dictated By: Neal Williamson MD Signed By: <Electronically signed by Neal Williamson MD in OV> 07/31/24 1812 DD/ 1542 TD/TT: 07/31/24 1610 Preschool Teacher: us [facility] External Provider IMG US PROCEDURES Edited Result - Final * BI Mammogram Screening Tomosynthesis Bilateral (10/18/2023 10:10 AM EDT) Anatomical Region Laterality Modality Breast Bilateral Mammography 10/18/2023 10:1 0 AM EDT Narrative 11/12/2023 10:15 AM EDT [facility] [address] [place] [address] Mammography Report Signed Patient: Felipa Fleming MR#: [id number] : 1980 Acct:[id number] Age/Sex: 43 / F ADM Date: 10/18/23 Loc: HO.MAMMO Attending Dr: Ligia Fung CNM Ordering Physician: LIGIA FUNG CNM Results: 1 Negative Date of Service: 10/18/23 Follow Up: 1 Year From Orig inal Mammogram Procedure(s): MM tomosynthesis screening BI Accession Number(s): [id number] cc: Elizabeth Guo DO; LIGIA FUNG CNM EXAMINATION: MM SCREENING DIGITAL BREAST [...] 11/12/23 1012 DD/ 1010 TD/TT: 10/18/23 1026 Preschool Teacher: Procedure Note Donotuseinterpreter, Image - 11/12/2023 [facility] [address] [place] [address] Mammography Report Signed Patient: Haylee Fleming#: [id number] : 1980Acct:[id number] Age/Sex: 43 / FADM Date: 10/18/23 Loc: HO.MAMMO Attending Dr: Ligia Fung CNM Ordering Physician: LIGIA FUNGesults: 1 Negative Date of Service: 10/18/23Follow Up: 1 Year From Orig inal Mammogram Procedure(s): MM tomosynthesis screening BI Accession Number(s): [id number] cc: Elizabeth Guo DO; LGIIA FUNG CNM EXAMINATION: MM SCREENING DIGITAL BREAST [...] 11/12/23 1012 DD/ 1010 TD/TT: 10/18/23 1026 Preschool Teacher: Ligia Fung [facility] IMG BI PROCEDURES Edited Result - Final * HIV-1/2 Antigen and Antibodies, Fourth Generation, with Reflexes (01/26/2023 9:05 AM EST) HIV AB/AG Nonreactive Nonreactive [facility] Comment:HIV-1 p24 Ag and/or HIV-1/HIV-2 Ab not detected.A test result that is nonreactive does not exclude thepossibility of exposure to or infection with HIV-1 and/orHIV-2. Nonreactive results in this assay for individualswith prior exposure to HIV-1 and/or HIV-2 may be due toantigen and antibody levels that are below the limit ofdetection of this assay.The sunne.ws HIV Ag/Ab Combo assay result andsupplemental assay results should be interpreted inconjunction with the patient's clinical presentation,history and other laboratory results. If the results areinconsistent with clinical evidence, additional testing issuggested to confirm the result. Blood Venous blood specimen / Unknown 01/26/2023 9:05 AM EST 01/26/2023 10:53 AM EST Elizabeth Guo DO LAB BLOOD ORDERABLES Final R esult [facility] [address] [place] [phone] * (ABNORMAL) Lipid Panel, Standard (01/26/2023 9:05 AM EST) Triglycerides 148 <150 mg/dL [facility] Comment:Desirable Triglyceri de: less than 150 mg/dLBorderline High Triglyceride 150-199 mg/dLHigh Triglyceride: 200-499 mg/dLVery High Triglyceride: greater than or equal to 5OO mg/dL Cholesterol 215(H) <200 mg/dL [facility] Comment:Desirable Cholestero l: less than 200 mg/dLBorderline High Cholesterol: 200-239 mg/dLHigh Cholesterol: greater than 239 mg/dL LDL Cholesterol Calculated 146(H) <100 mg/dL [facility] Comment:Desirable LDL: less than 100 mg/dLNear Optimal/Above Optimal LDL: 110- 129 mg/dLBorderline High LDL: 130-159 mg/dLHigh LDL: 160-189 mg/dLVery High LDL: greater than or equal to 190 mg/dL HDL Cholesterol 40(L) >40 mg/dL [facility] Comment:Desirable HDL: great er than 40 mg/dL Note: This HDL assay may give artificially low results in patients with liver disease. Blood Venous blood specimen / Unknown 01/26/2023 9:05 AM EST 01/26/2023 10:53 AM EST us Elizabeth Guo DO LAB BLOOD ORDERABLES Final R esult [facility] [address] [place] [phone] * THINPREP TIS PAP AND HPV mRNA E6/E7, CT/NG, TRICH (09/08/2021 9:21 AM EDT) Chlamydia trachomatis RNA, TMA, Urogenital NOT DETECTED NOT DETECTED [facility] Clinical Information: None given [facility] COMMENT SEE COMMENT [facility] Comment: The analytical performance characteristics of this assay, when used to test SurePath(TM) specimens have been determined by [employer]. The modifications have not been cleared or approved by the FDA. This assay has been validated pursuant to the CLIA regulations and is used for clinical purposes. For additional information, please refer to https://education.[employer]/faq/FHA641 (This link is being provided for information/ educational purposes only.) COMMENT SEE COMMENT [facility] Comment: EXPLANATORY NOTE: The Pap is a screening test for cervical cancer. It is not a diagnostic test and is subject to false negative and false positive results. It is most reliable when a satisfactory sample, regularly obtained, is submitted with relevant clinical findings and history, and when the Pap result is evaluated along with historic and current clinical information. COMMENT: This Pap test has been evaluated with computer assisted technology. [facility] Instrumentation And Controls Designer: SEE COMMENT [facility] Comment: BK,CT(ASCP) CT screening location: [address] HPV nRNA E6/E7 Not Detected Not Detected [facility] Comment: Methodology: Transplant Immunologist-Mediated Amplification This assay detects E6/E7 viral messenger RNA (mRNA) from 14 high-risk HPV types (16,18,31,33,35,39,45,51,52,56,58,59,66,68). Cervical sources are required for HPV testing. If a vaginal source from a patient who has had a total hysterectomy with removal of cervix was submitted, please contact the testing laboratory for alternative testing options. For additional information, please refer to http://[employer]/faq/LES090w9 (This link if provided for information/ educational [...] of this assay have been determined by [employer]. The modifications have not been cleared or approved by the FDA. This assay has been validated pursuant to the CLIA regulations and is used for clinical purposes. For additional information, please refer to http://education.[employer]/ faq/Trichomonastma (This link is being provided for information/ educational purposes only.) 09/08/2021 9:21 AM EDT us Ligia Fung CNM LAB PATHOLOGY ORDERABLES Final Result [facility] [address] from Last 3 Months or Most Recently Relevant to Health Maintenance Insurance [facility] ST[facility] Care Teams Armature Straightener Relationship Specialty Start Date End Date Elizabeth Guo DO [address] [place] [phone] PCP - General Family Medicine 03/03/21
[2024-08-29 12:23] LABS: MANUAL DIFF FLAG NO
[2024-08-29 12:30] LABS: Hematocrit 39.1 % (37.0-47.0); Hemoglobin 13.3 g/dl (12.0-16.0); Imm Gran Abs Auto 0.02 X10*3/uL (0.00-0.03); Imm Gran Pct Auto 0.3 % (0.0-0.4); Lymphocytes Absolute Auto 2.3 X10*3/uL (1.2-4.9); Mean Corpuscular HGB Conc 34.0 g/dl (31.0-35.0); Mean Corpuscular Hemoglobin 30.2 pg (27.0-33.0); Mean Corpuscular Volume 88.7 fL (80.0-98.0); NRBC Abs Auto 0.000 X10*3/uL (0.0-0.012); NRBC Pct Auto 0.0 /100WBC (0.0-0.2); Platelet Count 248 X10*3/uL (160-400); Red Blood Count 4.41 X10*6/uL (4.20-5.50); White Blood Count 6.2 X10*3/uL (4.8-10.8)
[2024-08-29 12:47] LABS: Hemoglobin A1C 129.4310 umol/L; Total Hemoglobin (HGBA1C) 3529.8239 umol/L
[2024-08-29 12:52] LABS: Microalbum/Creatinine Ratio Ur 8.9 ug/mg cr (<30)
[2024-08-29 13:03] LABS: HIV Num 1 0.06 S/CO (0.00-0.99); ~HepC Num1 0.25 S/CO (0.00-0.79); ~Hepatitis C Antibody Nonreactive (Nonreactive)
[2024-08-29 13:16] LABS: Folate 9.8 ng/mL (> or = 4.0); Vitamin B12 1312 pg/mL (200-900)
[2024-08-29 14:49] LABS: Alanine Aminotransferase 33 U/L (0-31); Albumin Level 4.4 g/dL (3.5-5.0); Alkaline Phosphatase 65 U/L (39-117); Anion Gap 10 (12-20); Aspartate Amino Transferase 32 U/L (5-31); Blood Urea Nitrogen 14 mg/dL (9-16); Calcium 9.2 mg/dL (8.4-10.2); Carbon Dioxide 26 mmol/L (22-29); Chloride 106 mmol/L (96-108); Cholesterol 216 mg/dL (<200); Estimated Glomerular Filt Rate > 60; HDL Cholesterol 41 mg/dL (>40); Iron 96 mcg/dL (30-160); Percent Iron Saturation 32 % (15-50); Potassium 3.6 mmol/L (3.3-5.1); Sodium 138 mmol/L (135-145); Total Iron Binding Capacity 301 mcg/dL (228-428); Total Protein 7.4 g/dL (6.5-8.0); Triglycerides 169 mg/dL (<150); Unsaturated Iron Binding 205 ug/dL
[2024-08-29 14:53] LABS: Ferritin 14 ng/mL (10-250); Free T4 (Free Thyroxine) 1.04 ng/dL (0.71-1.85); Thyroid Stimulating Hormone 3.19 uIU/mL (0.32-4.0)
[2024-08-29 15:00] LABS: CT PCR Urine NOT DETECTED (Not Detect.); NG PCR Urine NOT DETECTED (Not Detect.)
== END 2024-08-29 08:46 | disposition home or self-care (01) ==
LOC: HO.HHCL 08:45
PROVIDERS: PCP Family Medicine; Visit Provider Family Medicine
DX: Z00.00 Encounter for general adult medical examination without abnormal findings (principal); R09.A2 Foreign body sensation, throat; N92.0 Excessive and frequent menstruation with regular cycle; K21.9 Gastro-esophageal reflux disease without esophagitis; E03.9 Hypothyroidism, unspecified; E78.49 Other hyperlipidemia; I10 Essential (primary) hypertension; Z11.59 Encounter for screening for other viral diseases; Z11.3 Encounter for screening for infections with a predominantly sexual mode of transmission; Z11.4 Encounter for screening for human immunodeficiency virus [HIV]; Z11.8 Encounter for screening for other infectious and parasitic diseases
CPT/HCPCS: 36415; 80048; 80061; 80076; 82043; 82306; 82570; 82607; 82728; 82746; 83036; 83540; 84439; 84443; 85025; 86592; 86803; 87389; 87491; 87591

== ENCOUNTER 2024-10-30 09:48 | Outpatient (REF) | payer MEDICAID, SELFPAY ==
--- NOTE | ~2024-10-30 | MM_ITS ---
EXAMINATION: MM SCREENING DIGITAL BREAST TOMOSYNTHESIS, BILATERAL CLINICAL INFORMATION: Screening. Asymptomatic. COMPARISON: Mammography: Comparison is made with available priors TECHNIQUE: Digital breast mammography with tomosynthesis is performed in both the craniocaudal and mediolateral oblique views along with computer-aided detection (CAD). FINDINGS: The breasts are heterogeneously dense, which may obscure small masses (ACR BI-RADS breast composition Category c). There are no significant masses, abnormal calcifications, or other abnormalities. MM/MM tomosynthesis screening BI IMPRESSION: No mammographic evidence of malignancy. ASSESSMENT: BI-RADS BI-RADS 1 - Negative RECOMMENDATION: Routine annual mammography screening. 1 year F/U This examination should not preclude the clinical evaluation of a suspicious palpable abnormality. This patient's information was entered into a reminder system with a target due date for their next mammogram. Electronically signed by: Tanya Alanis DO 10/31/2024 04:41 PM EDT
--- OUTSIDE RECORDS SUMMARY | 2024-10-30 11:20 | XMS_ITS | Encounter Summary ---
Author Organization [employer] Address [address] [facility] [address] [place] [address] Care Team Providers Care Draw Hand Name Role Phone Elizabeth Guo DO Primary Care Provider + [phone] Encounter Details Date Type Department Care Team ([facility] st Contact Info) Description 02/13/2022 Orders Only [facility] [address] [place], [place] [phone] Shanell Ray MD [address] [place], [place] [phone] Iron deficiency (Primary Dx) Social History Tobacco [...] documented as of this encounter Care Teams Draw Hand Relationship Specialty Start Date End Date Elizabeth Guo DO [address] [place] [phone] PCP - General Family Medicine 03/03/21 documented as of this encounter
--- OUTSIDE RECORDS SUMMARY | 2024-10-30 11:20 | XMS_ITS | Encounter Summary ---
Author Organization [employer] Address [address] [facility] [address] [place] [address] Care Team Providers Care Digital Marketing Consultant Name Role Phone Elizabeth Guo DO Primary Care Provider + [phone] Reason for Visit * Reason Onset Date Comments triage 01/27/2022 Encounter Details Date Type Department Care Team (Late st Contact Info) Description 01/27/2022 Telephone [facility] [address] [place], [place] [phone] Elizabeth Guo DO [address] [place], [place] [phone] triage Social History Tobacco Use Types Packs/Day [...] on filedocumented in this encounter Care Teams Digital Marketing Consultant Relationship Specialty Start Date End Date Elizabeth Guo DO [address] [place] [phone] PCP - General Family Medicine 03/03/21 documented as of this encounter
--- OUTSIDE RECORDS SUMMARY | 2024-10-30 11:20 | XMS_ITS | Encounter Summary ---
Author Organization [employer] Address [address] [facility] [address] [place] [address] Care Team Providers Care Data Center Engineer Name Role Phone Elizabeth Guo DO Primary Care Provider + [phone] Reason for Visit * Reason Comments Med Refill Encounter Details Date Type Department Care Team ([facility] st Contact Info) Description 10/04/2024 Refill [facility] [address] [place], [place] [phone] Elizabeth Guo DO [address] [place], [place] [phone] Social History Tobacco Use Types Packs/Day Years [...] Noted Time PHQ-9 Depression Total Score: 0 08/29/19 25 11:36 AM EDT documented as of this encounter Care Teams Data Center Engineer Relationship Specialty Start Date End Date Elizabeth Guo DO [address] [place] [address] PCP - General Family Medicine 03/03/21 documented as of this encounter
--- OUTSIDE RECORDS SUMMARY | 2024-10-30 11:20 | XMS_ITS | Clinical Summary ---
Author Organization [employer] Address [address] [place] [address] Care Team Providers Care Noise Tester Name Role Phone Elizabeth Guo DO Primary Care Provider [phone] Allergies Active Allergy Reactions Criticality Noted Date [...] the morning. 90 tablet 3 5 Active amitriptyline (Elavil) 10 MG tabletIndications :Dyspepsia Take 1 tablet (10 mg) by mouth at bedtime. 30 tablet 5 Active levothyroxine (Synthroid, Levoxyl) 88 MCG tabletIndications :Hypothyroidism, unspecified type TAKE 1 TABLET BY MOUTH EVERY DAY 90 tablet 1 5 Active losartan (Cozaar) 25 MG tabletIndications :Essential hypertension Take 1 tablet (25 mg) by mouth Once per day. 90 tablet 3 5 Active cetirizine (ZyrTEC) 10 MG tablet Take 1 tablet (10 mg) by mouth Once per day. 90 tablet 3 5 08/29/19 26 Active fluticasone (Flonase) 50 MCG/ACT nasal spray Administer 2 sprays into each nostril Once per day. Shake gently. Before first use, prime pump. After use, clean tip and replace cap. 16 g 3 5 08/29/19 26 Active tranexamic acid (Lysteda) 650 MG tablet tablet TAKE 2 TABLETS BY MOUTH THREE TIMES DAILY FOR 5 DAYS. START ON DAY 1 OF MENSES AND TAKE UP TO 3-5 DAYS OF MENSES 30 tablet 1 5 Active Active Problems Problem Noted Date Diagnosed Date History of hepatitis C 08/18/2022 Chronic gastroesophageal reflux disease 03/17/19 23 Essential hypertension 03/17/2022 Uterine fibroids 01/29/2022 Hyperlipidemia 01/29/2022 Hypothyroidism 01/29/2022 BMI 25.0-25.9,adult 01/29/2022 Resolved Problems Problem Noted Date Diagnosed Date Resolved Date Gastroesophageal reflux disease 01/29/2022 03/17/2022 Encounters Date Type Department Care Team Description 10/04/2024 Refill [facility] [address] [place] [address] Elizabeth Guo DO 09/15/2024 Telephone [facility] [address] [place] [address] Elizabeth Guo DO Results 08/29/2024 Orders Only [facility] [address] [facility] [place] [address] Elizabeth Guo DO 08/28/2024 11:15 AM EDT Office Visit [facility] [address] [place] [address] Elizabeth Guo DO Essential hypertension (Primary Dx); Other hyperlipidemia; Hypothyroidism, unspecified type; Chronic gastroesophageal reflux disease; Menorrhagia with regular cycle; Globus sensation; Healthcare maintenance; Encounter for screening mammogram for malignant neoplasm of breast 08/28/2024 Travel 08/21/2024 Travel 08/18/2024 Patient Outreach [facility] [address] [place] [address] Elizabeth Guo DO Pre-visit Planning ([facility]OH unable to reach [facility] ) 08/17/2024 Telephone [facility] [address] [place] [address] Elizabeth Guo DO Chart Prep 08/14/2024 Orders Only GENERIC EXTERNAL DATA DEPARTMENT Provider, Generic External Data 08/01/2024 Telephone [facility] [address] [place] [address] Elizabeth Guo DO Recall Letter (Recall Letter sent 08/01/24.) 07/31/2024 Orders Only [facility] External Provider, [facility] from Last 3 Months Immunizations Immunization [...] - Risk 2-dose series) 1997 COVID-19 Vaccine (3 - season) 2024 09/06/2020, 08/16/2020 Influenza Vaccine (#1) 2024 11/17/2018, 2016 Depression Screening 08/28/2025 08/28/2024, 08/29/19 25 Disability Screening 08/28/2025 08/28/2024 SDOH Screening 08/28/2025 08/28/2024 Tobacco Screening 08/28/2025 08/28/2024 Mammogram 10/17/2025 10/18/2023, 09/23, 10/13/2022, Additional history exists Cervical Cancer Screening 09/08/2026 HPV/Cotest 09/08/2026 09/08/2021, 09/09/2016 Pap Smear 09/08/2026 09/08/2021, 01/21/2018 Zoster Vaccines (1 of 2) 2028 Lipid Panel 08/29/2029 08/29/2024, 06/2022, 02/12/2022, Additional history exists DTaP/Tdap/Td Vaccines (4 - Td or Tdap) 12/24/2032 12/24/2022, 02/18/2016, 08/03/2013 RSV Patients and Patients Aged 60 years or older (1 - 1-dose 75+ series) 2053 Hepatitis B Vaccines Completed 10/08/2016, 05/07/2016, 04/09/2016 HIV Screening Completed 08/29/2024, 06/2022, 02/12/2022, Additional history exists HIB Vaccines Aged Out No longer eligi [...] Procedure Name Priority Date/Time Associated Diagnosis Comments CHLAMYDIA/TRICHOMONA S/NEISSERIA GONORRHOEAE, PCR, URINE Routine 08/29/2024 8:52 AM EDT CBC WITH AUTO DIFFERENTIAL Routine 08/29/2024 8:52 AM EDT Essential hypertension Other hyperlipidemia Hypothyroidism, unspecified type Chronic gastroesophageal reflux disease Menorrhagia with regular cycle Globus sensation Healthcare maintenance Encounter for screening mammogram for malignant neoplasm of breast IRON AND TOTAL IRON BINDING CAPACITY Routine 08/29/2024 8:52 AM EDT Essential hypertension Other hyperlipidemia Hypothyroidism, unspecified type Chronic gastroesophageal reflux disease Menorrhagia with regular cycle Globus sensation Healthcare maintenance Encounter for screening mammogram for malignant neoplasm of breast FERRITIN Routine 08/29/2024 8:52 AM EDT Essential hypertension Other hyperlipidemia Hypothyroidism, unspecified type Chronic gastroesophageal reflux disease Menorrhagia with regular cycle Globus sensation Healthcare maintenance Encounter for screening mammogram for malignant neoplasm of breast VITAMIN B12/FOLATE, SERUM PANEL Routine 08/29/2024 8:52 AM EDT Essential hypertension Other hyperlipidemia Hypothyroidism, unspecified type Chronic gastroesophageal reflux disease Menorrhagia with regular cycle Globus sensation Healthcare maintenance Encounter for screening mammogram for malignant neoplasm of breast RPR (MONITOR) W/REFL TITER Routine 08/29/2024 8:52 AM EDT Essential hypertension Other hyperlipidemia Hypothyroidism, unspecified type Chronic gastroesophageal reflux disease Menorrhagia with regular cycle Globus sensation Healthcare maintenance Encounter for screening mammogram for malignant neoplasm of breast HEPATITIS C AB W/REFL TO HCV RNA, QN, PCR Routine 08/29/2024 8:52 AM EDT Essential hypertension Other hyperlipidemia Hypothyroidism, unspecified type Chronic gastroesophageal reflux disease Menorrhagia with regular cycle Globus sensation Healthcare maintenance Encounter for screening mammogram for malignant neoplasm of breast HIV 1/2 ANTIGEN/ANTIBODY, FOURTH GENERATION W/RFL Routine 08/29/2024 8:52 AM EDT Essential hypertension Other hyperlipidemia Hypothyroidism, unspecified type Chronic gastroesophageal reflux disease Menorrhagia with regular cycle Globus sensation Healthcare maintenance Encounter for screening mammogram for malignant neoplasm of breast ALBUMIN, RANDOM URINE W/CREATININE Routine 08/29/2024 8:52 AM EDT Essential hypertension Other hyperlipidemia Hypothyroidism, unspecified type Chronic gastroesophageal reflux disease Menorrhagia with regular cycle Globus sensation Healthcare maintenance Encounter for screening mammogram for malignant neoplasm of breast BASIC METABOLIC PANEL Routine 08/29/2024 8:52 AM EDT Essential hypertension Other hyperlipidemia Hypothyroidism, unspecified type Chronic gastroesophageal reflux disease Menorrhagia with regular cycle Globus sensation Healthcare maintenance Encounter for screening mammogram for malignant neoplasm of breast HEMOGLOBIN A1C Routine 08/29/2024 8:52 AM EDT Essential hypertension Other hyperlipidemia Hypothyroidism, unspecified type Chronic gastroesophageal reflux disease Menorrhagia with regular cycle Globus sensation Healthcare maintenance Encounter for screening mammogram for malignant neoplasm of breast HEPATIC FUNCTION PANEL Routine 08/29/2024 8:52 AM EDT Essential hypertension Other hyperlipidemia Hypothyroidism, unspecified type Chronic gastroesophageal reflux disease Menorrhagia with regular cycle Globus sensation Healthcare maintenance Encounter for screening mammogram for malignant neoplasm of breast TSH Routine 08/29/2024 8:52 AM EDT Essential hypertension Other hyperlipidemia Hypothyroidism, unspecified type Chronic gastroesophageal reflux disease Menorrhagia with regular cycle Globus sensation Healthcare maintenance Encounter for screening mammogram for malignant neoplasm of breast LIPID PANEL, STANDARD Routine 08/29/2024 8:52 AM EDT Essential hypertension Other hyperlipidemia Hypothyroidism, unspecified type Chronic gastroesophageal reflux disease Menorrhagia with regular cycle Globus sensation Healthcare maintenance Encounter for screening mammogram for malignant neoplasm of breast VITAMIN D,25-OH,TOTAL,IA Routine 08/29/2024 8:52 AM EDT Essential hypertension Other hyperlipidemia Hypothyroidism, unspecified type Chronic gastroesophageal reflux disease Menorrhagia with regular cycle Globus sensation Healthcare maintenance Encounter for screening mammogram for malignant neoplasm of breast T4, FREE Routine 08/29/2024 8:52 AM EDT Essential hypertension Other hyperlipidemia Hypothyroidism, unspecified type Chronic gastroesophageal reflux disease Menorrhagia with regular cycle Globus sensation Healthcare maintenance Encounter for screening mammogram for malignant neoplasm of breast CBC Routine 08/14/2024 1:50 PM EDT US PELVIS TRANSVAGINAL Routine 07/31/2024 3:42 PM EDT BI MAMMOGRAM SCREENING TOMOSYNTHESIS BILATERAL Routine 10/18/2023 10:10 AM EDT Breast cancer screening by mammogram THINPREP IMAGING PAP AND HPV MRNA E6/E7, WITH CT/NG, TRICHOMONAS Routine 09/08/2021 9:21 AM EDT from Last 3 Months or Most Recently Relevant to Health Maintenance Results * Chlamydia/Trichomonas/Neisseria gonorrhoeae, PCR, Urine (08/29/2024 8:52 AM EDT) CT PCR, Urine NOT DETECTED Not Detect. [facility] Comment:A not detected test result does not exclude the possibilityof infection because test results can be affected byimproper specimen collection, concurrent antibiotic therapy,or the number of organisms in the specimen which may bebelow the sensitivity of the test. As with many diagnostictests, results from the Xpert CT/NG assay should beinterpreted in conjunction with other laboratory andclinical data available to the clinician.The Xpert CT/NG assay should not be used for the evaluationof suspected sexual abuse or for other medico-legalindications. Additional testing is recommended in anycircumstance when false positive or false negative resultscould lead to adverse medical, social or psychologicalconsequences. NG PCR, Urine NOT DETECTED Not Detect. [facility] Comment:A not detected test result does not exclude the possibilityof infection because test results can be affected byimproper specimen collection, concurrent antibiotic therapy,or the number of organisms in the specimen which may bebelow the sensitivity of the test. As with many diagnostictests, results from the Xpert CT/NG assay should beinterpreted in conjunction with other laboratory andclinical data available to the clinician.The Xpert CT/NG assay should not be used for the evaluationof suspected sexual abuse or for other medico-legalindications. Additional testing is recommended in anycircumstance when false positive or false negative resultscould lead to adverse medical, social or psychologicalconsequences. 08/29/2024 8:52 AM EDT 08/29/2024 12:18 PM EDT us Elizabeth Guo DO LAB URINE ORDERABLES Final R esult [facility] [address] [place] [phone] * Vitamin D, 25-Hydroxy, Total, Immunoassay (08/29/2024 8:52 AM EDT) Vitamin D 25-OH Total 76.3 >30 ng/mL [facility] Comment: Health Based Reference Values*< 20 ng/mL [id number] ng/mL Insufficient> 30 ng/mL Sufficient*Raeann COLON. N Engl J Med. 2007;357:266-280There is no well-established upper level of normal vitamin Dlevels. Some laboratories use 50 ng/mL as an upper limit ofnormal. However, toxicity is patient-dependent and may occurat any level. Careful correlation with the patient'spresentation is necessary and, if there is concern forvitamin D toxicity, treatment should be consideredirrespective of the serum level.Care must be taken in interpreting Vitamin D results fromdifferent laboratories and methodologies. Published datademonstrated that results from patients undergoinghemodialysis may show a negative bias when tested withvarious automated 25-OH vitamin D assays when compared toLC-MS/MS.When testing samples from patients whose predominant form ofVitamin D is Vitamin D2, such as patients receiving VitaminD2 supplementation, results that are subtherapeutic shouldbe confirmed with another method such as LC-MS/MS. Blood Venous blood specimen / Unknown 08/29/2024 8:52 AM EDT 08/29/2024 12:18 PM EDT Elizabeth Guo DO LAB BLOOD ORDERABLES Final R esult Performing Organization Address [facility] Co de Phone Number [facility] [address] [place] [phone] * (ABNORMAL) Vitamin B12 (Cobalamin) and Folate Panel, Serum (08/29/2024 8:52 AM EDT) Vitamin B12 1,312(H) 200 - 900 pg/mL [facility] Comment:NORMAL 200-900 PG/ML INDETERMINATE 160-199 PG/ML DEFICIENT < 160 PG/ML Folate 9.8 > or = 4.0 ng/mL [facility] Comment:Reference Values:> o r = 4.0 ng/mL< 4.0 ng/mL suggests folate deficiency Methotrexate, aminopterin and folinic acid(leucovorin) are chemotherapeutic agents whose molecularstructures are similar to folate; therefore, the Architectfolate assay cannot be used for patients using these drugs. Blood 08/29/2024 8:52 AM EDT 08/29/2024 12:18 PM EDT us Elizabeth Guo DO LAB BLOOD ORDERABLES Final R esult Performing Organization Address [facility] Co de Phone Number [facility] [address] [place] [phone] * Albumin, Random Urine W/Creatinine (08/29/2024 8:52 AM EDT) Creatinine, Urine 89.67 mg/dL [facility] Microalbumin Urine 8.0 mg/L [facility] Microalbum Creatinine Ratio Ur 8.9 <30 ug/mg cr [facility] Comment:Albumin/Creatinine R atio Reference Ranges: Normal: < 30 ug/mg creatinine Microalbuminuria: 30 - 300 ug/mg creatinineClinical Albuminuria: > 300 ug/mg creatinine Urine (Urine, Random) 08/29/2024 8:52 AM EDT 08/29/2024 12:14 PM EDT Elizabeth Guo DO LAB URINE ORDERABLES Final R esult [facility] [address] [place] [phone] * (ABNORMAL) CBC auto differential (08/29/2024 8:52 AM EDT) White Blood Count 6.2 4.8 - 10.8 X10*3/uL [facility] Red Blood Count 4.41 4.20 - 5.50 X10*6/uL [facility] Hemoglobin 13.3 12.0 - 16.0 g/dl [facility] Hematocrit 39.1 37.0 - 47.0 % [facility] Mean Corpuscular Volume 88.7 80.0 - 98.0 fL [facility] Mean Corpuscular Hemoglobin 30.2 27.0 - 33.0 pg [facility] Mean Corpuscular HGB Conc 34.0 31.0 - 35.0 g/dl [facility] Red Cell Distribution Width 12.8 11.0 - 16.0 % [facility] Platelet Count 248 160 - 400 X10*3/uL [facility] Mean Platelet Volume 10.1 9.4 - 12.3 fL [facility] Neutrophils Percent Auto 47.3 45 - 73 % [facility] Imm Gran Pct Auto 0.3 0.0 - 0.4 % [facility] Lymphocytes Percent Auto 37.9 20 - 40 % [facility] Monocytes Percent Auto 11.2(H) 2 - 11 % [facility] Eosinophils Percent Auto 2.3 0 - 4 % [facility] Basophils Percent Auto 1.0 0 - 2 % [facility] NRBC Pct Auto 0.0 0.0 - 0.2 /100WBC [facility] Neutrophils Absolute Auto 2.9 2.0 - 8.3 x10*3/uL [facility] Imm Gran Abs Auto 0.02 0.00 - 0.03 X10*3/uL [facility] Lymphocytes Absolute Auto 2.3 1.2 - 4.9 X10*3/uL [facility] Monocytes Absolute Auto 0.7 0.1 - 1.2 X10*3/uL [facility] Eosinophils Absolute Auto 0.1 0.0 - 0.4 X10*3/uL [facility] Basophils Absolute Auto 0.1 0.0 - 0.2 X10*3/uL [facility] NRBC Abs Auto 0.000 0.0 - 0.012 X10*3/uL [facility] Blood Venous blood specimen / Unknown 08/29/2024 8:52 AM EDT 08/29/2024 12:18 PM EDT Elizabeth Jurnaepa [employer] LAB BLOOD ORDERABLES Final R esult Performing Organization Address [facility] Co de Phone Number [facility] [address] [place] [phone] * Hepatitis C Antibody with Reflex to HCV, RNA, Quantitative, Real-Time PCR (08/29/2024 8:52 AM EDT) Hepatitis C Antibody Nonreactive Nonreactive [facility] Comment:Antibodies to HCV no t detected; does not exclude early acuteHCV infection. Blood Venous blood specimen / Unknown 08/29/2024 8:52 AM EDT 08/29/2024 12:18 PM EDT Elizabeth Britneypa [employer] LAB BLOOD ORDERABLES Final R esult Performing Organization Address City/[facility] Co de Phone Number [facility] [address] [place] [phone] * Iron And Total Iron Binding Capacity (08/29/2024 8:52 AM EDT) Pathologist [facility] Iron 96 30 - 160 mcg/dL [facility] Total Iron Binding Capacity 301 228 - 428 mcg/dL [facility] Percent Iron Saturation 32 15 - 50 % [facility] Unsaturated Iron Binding 205 ug/dL [facility] Blood Venous blood specimen / Unknown 08/29/2024 8:52 AM EDT 08/29/2024 12:18 PM EDT us Elizabeth Guo LAB BLOOD ORDERABLES Final R esult Performing Organization Address [facility]/ZIP Co de Phone Number [facility] [address] [place] [phone] * RPR (Monitor) with Reflex to??Titer (08/29/2024 8:52 AM EDT) Pathologist [facility] RPR (Monitor) w/Refl Titer NON-REACTI VE NON-REACT DUNCAN [facility] Comment:THIS TEST WAS PERFOR MED AT:[facility] [address] [phone] FINNEY MD Rapid Plasma Reagin Ab Titer TNP [facility] Blood Venous blood specimen / Unknown 08/29/2024 8:52 AM EDT 08/29/2024 12:18 PM EDT us Elizabeth Sari LAB BLOOD ORDERABLES Final R esult Performing Organization Address City/[facility]/ZIP Co de Phone Number [facility] [address] [place] [phone] * HIV-1/2 Antigen and Antibodies, Fourth Generation, with Reflexes (08/29/2024 8:52 AM EDT) Pathologist [facility] HIV AB/AG Nonreactive Nonreactive [facility] Comment:HIV-1 p24 Ag and/or HIV-1/HIV-2 Ab not detected.A test result that is nonreactive does not exclude thepossibility of exposure to or infection with HIV-1 and/orHIV-2. Nonreactive results in this assay for individualswith prior exposure to HIV-1 and/or HIV-2 may be due toantigen and antibody levels that are below the limit ofdetection of this assay.The [employer] HIV Ag/Ab Combo assay result andsupplemental assay results should be interpreted inconjunction with the patient's clinical presentation,history and other laboratory results. If the results areinconsistent with clinical evidence, additional testing issuggested to confirm the result. Blood Venous blood specimen / Unknown 08/29/2024 8:52 AM EDT 08/29/2024 12:18 PM EDT Elizabeth Guo LAB BLOOD ORDERABLES Final R esult Performing Organization Address [facility] Co de Phone Number [facility] [address] [place] [phone] * TSH (08/29/2024 8:52 AM EDT) Thyroid Stimulating Hormone 3.19 0.32 - 4.0 uIU/mL [facility] Comment:Note: A sustained TS H level above 2.5 uIU/mL may warrant further investigation. TSH 3rd Generation ([email or web address]) Blood Venous blood specimen / Unknown 08/29/2024 8:52 AM EDT 08/29/2024 12:18 PM EDT Elizabeth Guo LAB BLOOD ORDERABLES Final R esult Performing Organization Address [facility] Co de Phone Number [facility] [address] [place] [phone] * T4, Free (08/29/2024 8:52 AM EDT) Free T4 (Free Thyroxine) 1.04 0.71 - 1.85 ng/dL [facility] Blood Venous blood specimen / Unknown 08/29/2024 8:52 AM EDT 08/29/2024 12:18 PM EDT us Elizabeth Guo DO LAB BLOOD ORDERABLES Final R esult Performing Organization Address City/[facility]/ZIP Co de Phone Number [facility] [address] [place] [phone] * Hemoglobin A1c (08/29/2024 8:52 AM EDT) Hemoglobin A1c 5.5 <6.0 % [facility] Comment:Hemoglobin A1C Refer ence Range Adults: 4.8 - 6.0 % Non diabetic: < 6.0 % Goal: < 7.0 %Additional Action Suggested: > 8.0 %Note: Hemoglobin A1c results are invalid for patients with abnormal amounts of HbF. Blood transfusions may impact the HbA1c concentration in the patient sample. Estimated Average Glucose 111 mg/dL [facility] Comment:eAG = Estimated ave rage glucose which is %A1C expressed asaverage glucose, using the formula of the [id number] Glucose study (ADAG), Diabetes Care, Vol.31,#8,Sep. 2007 Blood Venous blood specimen / Unknown 08/29/2024 8:52 AM EDT 08/29/2024 12:18 PM EDT us Elizabeth Guo DO LAB BLOOD ORDERABLES Final R esult Performing Organization Address [facility] Co de Phone Number [facility] [address] [place] [phone] * Ferritin (08/29/2024 8:52 AM EDT) Ferritin 14 10 - 250 ng/mL [facility] Blood Venous blood specimen / Unknown 08/29/2024 8:52 AM EDT 08/29/2024 12:18 PM EDT us Elizabeth Guo DO LAB BLOOD ORDERABLES Final R esult Performing Organization Address City/[facility]/ZIP Co de Phone Number [facility] [address] [place] [phone] * (ABNORMAL) Hepatic Function Panel (08/29/2024 8:52 AM EDT) Bilirubin, Total 0.3 0.0 - 1.0 mg/dL [facility] Bilirubin, Direct 0.1 0.0 - 0.5 mg/dL [facility] Aspartate Amino Transferase 32(H) 5 - 31 U/L [facility] Alanine Aminotransferase 33(H) 0 - 31 U/L [facility] Total Protein 7.4 6.5 - 8.0 g/dL [facility] Albumin Level 4.4 3.5 - 5.0 g/dL [facility] Alkaline Phosphatase 65 39 - 117 U/L [facility] Blood Venous blood specimen / Unknown 08/29/2024 8:52 AM EDT 08/29/2024 12:18 PM EDT us Elizabeth Guo DO LAB BLOOD ORDERABLES Final R esult [facility] [address] [place] [phone] * (ABNORMAL) Lipid Panel, Standard (08/29/2024 8:52 AM EDT) Triglycerides 169(H) <150 mg/dL [facility] Comment:Desirable Triglyceri de: less than 150 mg/dLBorderline High Triglyceride 150-199 mg/dLHigh Triglyceride: 200-499 mg/dLVery High Triglyceride: greater than or equal to 5OO mg/dL Cholesterol 216(H) <200 mg/dL [facility] Comment:Desirable Cholestero l: less than 200 mg/dLBorderline High Cholesterol: 200-239 mg/dLHigh Cholesterol: greater than 239 mg/dL LDL Cholesterol Calculated 142(H) <100 mg/dL [facility] Comment:Desirable LDL: less than 100 mg/dLNear Optimal/Above Optimal LDL: 110- 129 mg/dLBorderline High LDL: 130-159 mg/dLHigh LDL: 160-189 mg/dLVery High LDL: greater than or equal to 190 mg/dL HDL Cholesterol 41 >40 mg/dL [facility] Comment:Desirable HDL: great er than 40 mg/dL Note: This HDL assay may give artificially low results in patients with liver disease. Blood Venous blood specimen / Unknown 08/29/2024 8:52 AM EDT 08/29/2024 12:18 PM EDT Elizabeth Guo DO LAB BLOOD ORDERABLES Final R esult [facility] [address] [place] [phone] * (ABNORMAL) Basic Metabolic Panel (08/29/2024 8:52 AM EDT) Sodium 138 135 - 145 mmol/L [facility] Potassium 3.6 3.3 - 5.1 mmol/L [facility] Chloride 106 96 - 108 mmol/L [facility] Carbon Dioxide 26 22 - 29 mmol/L [facility] Anion Gap 10(L) 12 - 20 [facility] Urea Nitrogen (BUN) 14 9 - 16 mg/dL [facility] Creatinine, Serum 0.78 0.5 - 1.4 mg/dL [facility] Estimated Glomerular Filt Rate >60 [facility] Comment:Chronic Kidney Disea se: Estimated GFR < 60 mL/min/1.82l1Wjkhbu Kidney Disease: Estimated GFR < 15 mL/min/1.73m2 Glucose 92 60 - 115 mg/dL [facility] Calcium 9.2 8.4 - 10.2 mg/dL [facility] Blood Venous blood specimen / Unknown 08/29/2024 8:52 AM EDT 08/29/2024 12:18 PM EDT Elizabeth Guo DO LAB BLOOD ORDERABLES Final R esult [facility] [address] [place] [phone] * (ABNORMAL) CBC (08/14/2024 1:50 PM EDT) White Blood Count 6.5 4.8 - 10.8 X10*3/uL [facility] Red Blood Count 3.92(L) 4.20 - 5.50 X10*6/uL [facility] Hemoglobin 12.1 12.0 - 16.0 g/dl [facility] Hematocrit 34.4(L) 37.0 - 47.0 % [facility] Mean Corpuscular Volume 87.8 80.0 - 98.0 fL [facility] Mean Corpuscular Hemoglobin 30.9 27.0 - 33.0 pg [facility] Mean Corpuscular HGB Conc 35.2(H) 31.0 - 35.0 g/dl [facility] Red Cell Distribution Width 12.4 11.0 - 16.0 % [facility] Platelet Count 239 160 - 400 X10*3/uL [facility] Mean Platelet Volume 9.3(L) 9.4 - 12.3 fL [facility] NRBC Pct Auto 0.0 0.0 - 0.2 /100WBC [facility] NRBC Abs Auto 0.000 0.0 - 0.012 X10*3/uL [facility] 08/14/2024 1:50 PM EDT 08/14/2024 1:50 PM EDT us Generic External Data Provider LAB BLOOD ORDERAB LES Final Result [facility] [address] [place] [phone] * US Pelvis Transvaginal (07/31/2024 3:42 PM EDT) Anatomical Region Laterality Modality Pelvis Ultrasound 07/31/2024 3:42 PM EDT Narrative 07/31/2024 6:15 PM EDT [address] [address] Ultrasound Report Signed Patient: Felipa Fleming MR#: [id number] : 1980 Acct:[id number] Age/Sex: 44 / F ADM Date: 07/31/24 Loc: HO.US Attending Dr: Robb Mena MD Ordering Physician: Robb Mena MD Date of Service: 07/31/24 Procedure(s): US pelvic and transvaginal Accession Number(s): [id number] cc: Elizabeth Guo DO; Robb Mena MD [...] 07/31/24 1812 DD/ 1542 TD/TT: 07/31/24 1610 Heating Equipment Repairer: Procedure Note Milter, Image - 07/31/2024 [place] [address] Ultrasound Report Signed Patient: Felipa FlemingMR#: [id number] : 1980Acct:[id number] Age/Sex: 44 / FADM Date: 07/31/24 Loc: HO.US Attending Dr: Robb Mena MD Ordering Physician: Robb Mena MD Date of Service: 07/31/24 Procedure(s): US pelvic and transvaginal Accession Number(s): [id number] cc: Elizabeth Guo DO; Robb Mena MD [...] 07/31/24 1812 DD/ 1542 TD/TT: 07/31/24 1610 Heating Equipment Repairer: [facility] External Provider IMG US PROCEDURES Edited Result - Final * BI Mammogram Screening Tomosynthesis Bilateral (10/18/2023 10:10 AM EDT) Anatomical Region Laterality Modality Breast Bilateral Mammography 10/18/2023 10:1 0 AM EDT Narrative 11/12/2023 10:15 AM EDT [facility] [address] [place] [address] Mammography Report Signed Patient: Felipa Fleming MR#: [id number] : 1980 Acct:[id number] Age/Sex: 43 / F ADM Date: 10/18/23 Loc: HO.MAMMO Attending Dr: Becca Fung CNM Ordering Physician: BECCA FUNG CNM Results: 1 Negative Date of Service: 10/18/23 Follow Up: 1 Year From Orig inal Mammogram Procedure(s): MM tomosynthesis screening BI Accession Number(s): [id number] cc: Elizabeth Guo JOHANNA CNM EXAMINATION: MM SCREENING DIGITAL BREAST TOMOSYNTHESIS, [...] 11/12/23 1012 DD/ 1010 TD/TT: 10/18/23 1026 Heating Equipment Repairer: Procedure Note Donotuseinterpreter, Image - 11/12/2023 [facility] [address] [place] [address] Mammography Report Signed Patient: Felipa FlemingMR#: [id number] : 1980Acct:[id number] Age/Sex: 43 / FADM Date: 10/18/23 Loc: HO.MAMMO Attending Dr: Becca Fung CNM Ordering Physician: BECCA FUNGesults: 1 Negative Date of Service: 10/18/23Follow Up: 1 Year From Orig ina Mammogram Procedure(s): MM tomosynthesis screening BI Accession Number(s): [id number] cc: Elizabeth Guo DO; BECCA FUNG CNM [...] 11/12/23 1012 DD/ 1010 TD/TT: 10/18/23 1026 Heating Equipment Repairer: Becca Fung CNM [facility] PROCEDURES Edited Result - Final * THINPREP TIS PAP AND HPV mRNA E6/E7, CT/NG, TRICH (09/08/2021 9:21 AM EDT) Chlamydia trachomatis RNA, TMA, Urogenital NOT DETECTED NOT DETECTED [facility] Clinical Information: None given [facility] COMMENT SEE COMMENT [facility] Comment: The analytical performance characteristics of this assay, when used to test SurePath(TM) specimens have been determined by [employer]. The modifications have not been cleared or approved by the FDA. This assay has been validated pursuant to the CLIA regulations and is used for clinical purposes. For additional information, please refer to https://education.byyd/faq/ZJK200 (This link is being provided for information/ [...] has been evaluated with computer assisted technology. [facility] Lye Peel Operator: SEE COMMENT [facility] Comment: BK,CT(ASCP) CT screening location: [address] HPV nRNA E6/E7 Not Detected Not Detected [facility] Comment: Methodology: Warehouse Order Puller-Mediated Amplification This assay detects E6/E7 viral messenger RNA (mRNA) from 14 high-risk HPV types (16,18,31,33,35,39,45,51,52,56,58,59,66,68). Cervical sources are required for HPV testing. If a vaginal source from a patient who has had a total hysterectomy with removal of cervix was submitted, please contact the testing laboratory for alternative testing options. For additional information, please refer to http://education.byyd/faq/QSM876p8 (This link if provided for information/ educational [...] of this assay have been determined by [employer]. The modifications have not been cleared or approved by the FDA. This assay has been validated pursuant to the CLIA regulations and is used for clinical purposes. For additional information, please refer to http://[employer].byyd/ faq/Trichomonastma (This link is being provided for information/ educational purposes only.) 09/08/2021 9:21 AM EDT us Becca Fung CNM LAB PATHOLOGY ORDERABLES Final Result [facility] [address] from Last 3 Months or Most Recently Relevant to Health Maintenance Insurance [facility] [employer] Care Teams Noise Tester Relationship Specialty Start Date End Date Elizabeth Guo DO [address] [place] [phone] PCP - General Family Medicine 03/03/21
--- OUTSIDE RECORDS SUMMARY | 2024-10-30 11:20 | XMS_ITS | Encounter Summary ---
Author Organization [employer] Address [address] [facility] [address] [place] [address] Care Team Providers Care Burner Hand Name Role Phone Elizabeth Guo DO Primary Care Provider + [phone] Reason for Visit * Reason Comments Med Refill Encounter Details Date Type Department Care Team ([facility] st Contact Info) Description 04/19/2024 Refill [facility] [address] [place], [place] [phone] Elizabeth Guo DO [address] [place], [place] [phone] Social History Tobacco Use Types Packs/Day Years [...] documented as of this encounter Care Teams Burner Hand Relationship Specialty Start Date End Date Elizabeth Guo DO [address] [place] [phone] PCP - General Family Medicine 03/03/21 documented as of this encounter
--- OUTSIDE RECORDS SUMMARY | 2024-10-30 11:20 | XMS_ITS | Encounter Summary ---
Author Organization [employer] Address [address] [place] [address] [address] [place] [address] Care Team Providers Care Automotive Lube Technician Name Role Phone Elizabeth Guo DO Primary Care Provider Encounter Details Date Type Department Care Team (Latest Contact Info) Description 02/01/2019 Abstract [facility] CONVERSIONS Dental, Provider, DDS Social History Tobacco [...] on filedocumented in this encounter Care Teams Automotive Lube Technician Relationship Specialty Start Date End Date Elizabeth Guo DO [address] [place] [phone] PCP - General Family Medicine 03/03/21 documented as of this encounter
--- OUTSIDE RECORDS SUMMARY | 2024-10-30 11:20 | XMS_ITS | Encounter Summary ---
Author Organization [employer] Address [address] [facility] [address] [place] [address] Care Team Providers Care Deputy Sheriff Chief Name Role Phone Elizabeth Guo DO Primary Care Provider + [phone] Reason for Visit * Reason Comments Med Refill Encounter Details Date Type Department Care Team ([facility] st Contact Info) Description 07/22/2023 Refill [facility] [address] [place], [place] [phone] Elizabeth Guo DO [address] [place], [place] [phone] Social History Tobacco Use Types Packs/Day Years [...] documented as of this encounter Care Teams Deputy Sheriff Chief Relationship Specialty Start Date End Date Elizabeth Guo DO [address] [place] [phone] PCP - General Family Medicine 03/03/21 documented as of this encounter
== END 2024-10-30 09:49 | disposition home or self-care (01) ==
LOC: HO.MAMMO 09:48
PROVIDERS: PCP Family Medicine; Visit Provider Family Medicine
DX: Z12.31 Encounter for screening mammogram for malignant neoplasm of breast (principal)
CPT/HCPCS: 77063; 77067

== ENCOUNTER → 2024-10-30 10:00 | Outpatient (BNV) | payer MEDICAID, SELFPAY | PROVIDERS: PCP Family Medicine; Visit Provider Internal Medicine | DX: Z12.31 Encounter for screening mammogram for malignant neoplasm of breast (principal) | CPT/HCPCS: 77063; 77067 ==

== ENCOUNTER 2024-11-29 09:04 | Outpatient (REF) | payer MEDICAID, SELFPAY ==
[2024-11-29 11:42] LABS: MANUAL DIFF FLAG NO
[2024-11-29 11:45] LABS: Hematocrit 35.4 % (37.0-47.0); Hemoglobin 12.5 g/dl (12.0-16.0); Imm Gran Abs Auto 0.01 X10*3/uL (0.00-0.03); Imm Gran Pct Auto 0.2 % (0.0-0.4); Lymphocytes Absolute Auto 2.4 X10*3/uL (1.2-4.9); Mean Corpuscular HGB Conc 35.3 g/dl (31.0-35.0); Mean Corpuscular Hemoglobin 30.9 pg (27.0-33.0); Mean Corpuscular Volume 87.4 fL (80.0-98.0); NRBC Abs Auto 0.000 X10*3/uL (0.0-0.012); NRBC Pct Auto 0.0 /100WBC (0.0-0.2); Platelet Count 236 X10*3/uL (160-400); Red Blood Count 4.05 X10*6/uL (4.20-5.50); White Blood Count 6.1 X10*3/uL (4.8-10.8)
[2024-11-29 12:27] LABS: Anion Gap 10 (12-20); Blood Urea Nitrogen 11 mg/dL (9-16); Calcium 8.7 mg/dL (8.4-10.2); Carbon Dioxide 24 mmol/L (22-29); Chloride 108 mmol/L (96-108); Estimated Glomerular Filt Rate > 60; Potassium 3.2 mmol/L (3.3-5.1); Sodium 139 mmol/L (135-145)
== END 2024-11-29 09:05 | disposition home or self-care (01) ==
LOC: HO.HHCL 09:04
PROVIDERS: PCP Family Medicine; Visit Provider Internal Medicine
DX: R42 Dizziness and giddiness (principal)
CPT/HCPCS: 36415; 80048; 84443; 85025

== ENCOUNTER 2024-12-06 14:44 | Outpatient (REF) | payer MEDICAID, SELFPAY ==
[2024-12-06 17:05] LABS: Anion Gap 8 (12-20); Blood Urea Nitrogen 14 mg/dL (9-16); Calcium 8.9 mg/dL (8.4-10.2); Carbon Dioxide 24 mmol/L (22-29); Chloride 111 mmol/L (96-108); Estimated Glomerular Filt Rate > 60; Potassium 3.8 mmol/L (3.3-5.1); Sodium 139 mmol/L (135-145)
== END 2024-12-06 14:45 | disposition home or self-care (01) ==
LOC: HO.HHCL 14:44
PROVIDERS: Visit Provider Internal Medicine
DX: E87.6 Hypokalemia (principal)
CPT/HCPCS: 36415; 80048